=== PATIENT | female | born 1960 | race Caucasian/White ===

== ENCOUNTER 2023-06-02 13:48 | Outpatient (REF) | payer OTHER, SELFPAY ==
[2023-06-02 21:54] LABS: Absolute Basophil Count 0.06 10^3/uL (0.0-0.2); Absolute Eosinophil Count 0.44 10^3/uL (0.0-0.7); Absolute Lymphocyte Count 1.88 10^3/uL (1.2-3.4); Absolute Monocyte Count 0.59 10^3/uL (0.1-0.8); Absolute Neutrophil Count 8.78 10^3/uL (1.2-6.7); Basophils % 0.5; Eosinophils % 3.7; HCT 37.8 % (36.0-46.0); HGB 12.5 g/dL (11.2-15.7); Immature Grans % 0.8; Lymphocytes % 15.9; MCH 30.3 pg (27.0-33.0); MCHC 33.1 % (32.0-36.0); MCV 92 fL (80-95); MPV 10.9 fL (8.0-11.0); Neutrophils % 74.1; Platelet Count 367 10^3/uL (130-400); RBC 4.12 10^6/uL (3.93-5.22); RDW 12.4 % (11.7-14.6); RDW-SD 42.2 fL; WBC 11.85 10^3/uL (4.4-10.8)
[2023-06-02 22:04] LABS: ALT 26 U/L (14-59); AST 35 U/L (15-37); Albumin 3.1 g/dL (3.4-5.0); Alkaline Phosphatase 103 U/L (46-116); Anion Gap 8.9 mmol/L (3-11); BUN 6 mg/dL (7-18); Bilirubin, Total 0.5 mg/dL (0.2-1.0); CO2 26.1 mmol/L (21.0-32.0); CREATININE 0.9 mg/dL (0.55-1.02); Calcium 8.8 mg/dL (8.5-10.1); Chloride 97 mmol/L (98-107); Estimated GFR 71.83 (mL/min/1.73m2); Glucose 103 mg/dL (74-106); Potassium 4.5 mmol/L (3.5-5.1); Sodium 132 mmol/L (136-145)
[2023-06-04 12:28] LABS: Lyme Ab w Rflx to Lyme Confirm Positive (Negative)
[2023-06-04 13:58] LABS: Lyme IgG Ab Positive (Negative); Lyme IgM Ab Positive (Negative)
[2023-06-06 09:44] LABS: Anaplasma phagocytophilum Negative (Negative); B. miyamotoi PCR Negative (Negative); Babesia divergens/MO-1 Negative (Negative); Babesia duncani Negative (Negative); Babesia microti Negative (Negative); Ehrlichia chaffeensis Negative (Negative); Ehrlichia ewingii/canis Negative (Negative); Ehrlichia muris eauclairensis Negative (Negative)
== END 2023-06-02 13:49 | disposition home or self-care (01) ==
LOC: NCHCN 13:48
PROVIDERS: Visit Provider Family Medicine
DX: R53.83 Other fatigue (principal); R50.9 Fever, unspecified; R21 Rash and other nonspecific skin eruption
CPT/HCPCS: 80053; 86617; 87798; 85025; 86618

== ENCOUNTER 2024-10-13 11:36 | Outpatient (REF) | payer OTHER, SELFPAY ==
--- NOTE | 2024-10-13 11:00 | PAPFT_PTH ---
PATIENT: Jessica Connelly LOC: [facility] U#:[id number] AGE/SX: 64/F ROOM: RE10/13/[address]: Ramsey Henriquez : 1960 BED: DIS: 10/13/2024 SPEC #: [id number] RECD: 10/14/24 13:30 STATUS: KARRI REQ #: [id number] JON: 10/13/24 11:[address]: Ramsey Henriquez DEPT: [facility] Cytology RECD BY: Rosenda Hart ENTERED: 10/14/24 13:30 SP TYPE: PAPFT OTHR DR: Unknown,Unknown Tissues: 1 - CX/ENDOCX FOR PAP SMEARS Procedures: PAP THIN PREP/[facility] Screening HPV DNA PROBE Comments: [id number] (HPV 16 & 18/45)
--- OUTSIDE RECORDS SUMMARY | 2024-10-13 11:38 | XMS_ITS | Encounter Summary ---
Author Organization [facility] Address [address] [place] [address] Care Team Providers Care Professional Development Instructor Name Role Phone Venancio Henriquez MD Primary Care Provide r Reason for Referral * Radiology Services (Routine/Next Available) - Authorized Specialty Diagnoses / Procedures Referred By Abby t Referred To Contact Radiology Diagnoses Disorder of bone, unspecified Procedures MR PELVIS WO CONTRAST Venancio Henriquez MD 4 [facility] [address] [place] [address] Phone: tel: fax: [facility] Referral ID Status Reason Start Date Expiration Date V isits Requested Visits Authorized [id number] Authorized 01/29/2024 03/26/2024 1 1 Reason for Visit * Radiology Services (Routine/Next Available) - Authorized Specialty Diagnoses / Procedures Referred By Abby t Referred To Contact Radiology Diagnoses Disorder of bone, unspecified Procedures MR PELVIS WO CONTRAST Venancio Henriquez MD 4 [facility] [address] [place] [address] Phone: tel: fax: [facility] Referral ID Status Reason Start Date Expiration Date V isits Requested Visits Authorized [id number] Authorized 01/29/2024 03/26/2024 1 1 Encounter Details Date Type Department Care Team (Latest Contact Info) Description 02/11/2024 9:17 EDT - 02/11/2024 23:59 EDT Hospital Encounter [facility] [address] [place] [address] Disorder of bone, unspecified Discharge Disposition: Home or Self Care Social History Tobacco Use Types Packs/Day Years Used Date Smoking Tobacco: Former Cigarettes Smokeless Tobacco: Never Comments:smoked when she was 12 years old and stopped at the age of 14 Alcohol Use Standard Drinks/Week Comments Yes 2 (1 standard drink = 0.6 oz pur e alcohol) Interpersonal Safety Answer Date Record ed Physically Hurt Never 06/03/2020 Verbally Threaten Not on file 06/03/2020 Comments No Sex and Gender Information Value Date Recorded Sex Assigned at Not on file Legal Sex Female 18:28 EST Gender Identity Female 01/14/2024 16:04 EDT Sexual Orientation Not on file documented as of this encounter Functional Status * Because of a physical, mental, or emotional condition, does this person have difficulty doing errands alone such as visiting a doctor's office or shopping? Answer Date of Assessment Author No 12/16/2022 8:07 EST documented as of this encounter Mental Status * Because of a physical, mental, or emotional condition, does this person have serious difficulty concentrating, remembering, or making decisions? Answer Entry Date Author No 12/16/2022 8:07 EST documented in this encounter Medications at Time of Discharge EPINEPHrine (EPIPEN) 0.3 mg/0.3 mL injection Inject 0.3 mL into the muscle once as needed for 1 dose. 2 Syringe 6 06/18/2012 fluocinonide (LIDEX) 0.05 % ointment Apply topically 2 times daily. Do not apply to face, armpit or groin. 30 g 3 01/30/2023 MULTIVITAMINS (MULTIVITAMIN ORAL) Take by mouth daily. Vit, A,D,B,C,K OMEGA-3 FATTY ACIDS (OMEGA-3 ORAL) Take by mouth daily. SELENIUM ORAL Take by mouth daily. UNABLE TO FIND daily. Med Name: Pantethine, Serrapeptase VITAMIN B COMPLEX (VIT BALANCED B-100 ORAL) Take by mouth. 4 times weekly documented as of this encounter Discharge Disposition Disposition Code Departure Means Destination Home or Self Care documented in this encounter Plan of Treatment Not on file documented as of this encounter Procedures Procedure Name Priority Date/Time Associated Diagnosis Comments MR PELVIS WO CONTRAST Routine 02/11/2024 10:29 EDT Disorder of bone, unspecified documented in this encounter Results * MR PELVIS WO CONTRAST (02/11/2024 10:29 EDT) Anatomical Region Laterality Modality Body, Pelvis Magnetic Resonan ce 02/14/2024 19:5 3 EDT Impressions 02/14/2024 19:53 EDT FINDINGS/IMPRESSION: * ??Correlating well with the comparison studies is an intramedullary lesion in the superomedial aspect of the left iliac crest with a narrow zone of transition which corresponds to the thin rim of peripheral sclerosis seen on the previous radiographs. No perilesional bone marrow edema seen. No pathologic fracture is identified either. The lesion follows the signal intensity of fluid on all sequences suggesting that this may correspond to a cystic lesion, however a solid lesion with myxomatous contents might have a similar appearance, the lack of intravenous contrast limits further characterization. On the sagittal images there appears to be slight transcortical extension without associated adjacent edema. Based on its location, the lesion is amenable for percutaneous image guided biopsy which will provide a more definitive diagnosis if warranted. * ??No additional discrete osseous lesions are seen elsewhere in the remaining of the visualized bones. No bone marrow signal abnormality seen in either. * ??Mild degenerative changes seen in the hips which appear otherwise congruent and symmetric. The SI joints appear grossly congruent and symmetric as well. The pubic symphysis also appears congruent. * ??Multilevel degenerative changes seen in the included lower lumbar spine. * ??No discrete abnormality seen in the intrapelvic organs although this study is not tailored for that purpose. No free fluid seen in the deep pelvis. * ??No evidence of trochanteric, subgluteal, ischiogluteal, or iliopsoas bursitis on either side. * ??Overall muscle quality is age-appropriate. [id number] Narrative 02/14/2024 19:53 EDT STUDY: MR PELVIS WO CONTRAST ??02/11/2024 9:25 AM SIGNS AND SYMPTOMS/COMMENTS: 3.7 x 1.8 cm left iliac lesion seen incidentally on MR L spine at [facility]. ??Recommending this study to further characterize, changed to w/o contrast.;M89.9:Disorder of bone, unspecified TECHNIQUE: Multiplanar multisequence MR images of the pelvis centered around the aforementioned osseous lesion were obtained. No contrast was administered. COMPARISON: Outside MRI of the lumbar spine dated December 31, 2023. Radiographs of the lumbar spine dated December 05, 2023. Procedure Note Harpreet Herrera MD - 02/14/2024 STUDY: MR PELVIS WO CONTRAST 02/11/2024 9:25 AM SIGNS AND SYMPTOMS/COMMENTS: 3.7 x 1.8 cm left iliac lesion seenincidentally on MR L spine at [facility]. Recommending this study to furthercharacterize, changed to w/o contrast.;M89.9:Disorder of bone, unspecified TECHNIQUE: Multiplanar multisequence MR images of the pelvis centeredaround the aforementioned osseous lesion were obtained. No contrast wasadministered. COMPARISON: Outside MRI of the lumbar spine dated December 31, 2023.Radiographs of the lumbar spine dated December 05, 2023. IMPRESSION FINDINGS/IMPRESSION: * Correlating well with the comparison studies is an intramedullarylesion in the superomedial aspect of the left iliac crest with a narrowzone of transition which corresponds to the thin rim of peripheralsclerosis seen on the previous radiographs. No perilesional bone marrowedema seen. No pathologic fracture is identified either. The lesionfollows the signal intensity of fluid on all sequences suggesting thatthis may correspond to a cystic lesion, however a solid lesion withmyxomatous contents might have a similar appearance, the lack ofintravenous contrast limits further characterization. On the sagittalimages there appears to be slight transcortical extension withoutassociated adjacent edema. Based on its location, the lesion is amenablefor percutaneous image guided biopsy which will provide a more definitivediagnosis if warranted. * No additional discrete osseous lesions are seen elsewhere in theremaining of the visualized bones. No bone marrow signal abnormality seenin either. * Mild degenerative changes seen in the hips which appear otherwisecongruent and symmetric. The SI joints appear grossly congruent andsymmetric as well. The pubic symphysis also appears congruent. * Multilevel degenerative changes seen in the included lower lumbarspine. * No discrete abnormality seen in the intrapelvic organs although thisstudy is not tailored for that purpose. No free fluid seen in the deeppelvis. * No evidence of trochanteric, subgluteal, ischiogluteal, or iliopsoasbursitis on either side. * Overall muscle quality is age-appropriate. [id number] Venancio Henriquez MD IMG MRI ORDERABLES Fi nal Result documented in this encounter Visit Diagnoses Diagnosis Disorder of bone, unspecified documented in this encounter Care Teams Professional Development Instructor Relationship Specialty Start Date End Date Venancio Henriquez MD [address] [address] PCP - General 01/14/24 documented as of this encounter
--- OUTSIDE RECORDS SUMMARY | 2024-10-13 11:38 | XMS_ITS | Clinical Summary ---
Author Organization [facility] Address [address] [place] [address] Care Team Providers Care Bung Remover Name Role Phone Venancio Henriquez MD Primary Care Provide r Allergies Active Allergy Reactions Criticality Noted Date Comments Codeine Nausea Only Other - See Comments 02/19/2010 Antibiotics trigger systemic logan per patient. Avoids. Penicillins Hives Medications VITAMIN B COMPLEX (VIT BALANCED B-100 ORAL) Take by mouth. 4 times weekly Active OMEGA-3 FATTY ACIDS (OMEGA-3 ORAL) Take by mouth daily. Active MULTIVITAMINS (MULTIVITAMIN ORAL) Take by mouth daily. Vit, A,D,B,C,K Active SELENIUM ORAL Take by mouth daily. Active UNABLE TO FIND daily. Med Name: Pantethine, Serrapeptase Active EPINEPHrine (EPIPEN) 0.3 mg/0.3 mL injection Inject 0.3 mL into the muscle once as needed for 1 dose. 2 Syringe 6 2 Active fluocinonide (LIDEX) 0.05 % ointment Apply topically 2 times daily. Do not apply to face, armpit or groin. 30 g 3 3 Active Active Problems Problem Noted Date Diagnosed Date Carpal tunnel syndrome 08/23/2014 Overview (09/07/2014): 08/15 by EMG moderate right; mild left Benign neoplasm of skin 06/25/2012 Overview (08/19/2015): Pigmented nevus, right labia majora IMO Update Auto Replacement Actinic keratosis 12/09/2010 Migraine 02/19/2010 Systolic murmur 02/19/2010 Overview (02/19/2010): Normal echo 2001 Chronic fatigue syndrome 02/19/2010 Immunizations Name Administration Dates Next Due Td 11/02/2003 Surgical History Surgery Date Site/Laterality Comments APPENDECTOMY 11/02/1970 SKIN BIOPSY MOHS SURGERY 12/16/2022 Left frontal scalp, MIS with MART -1 immunostains Medical History Medical History Date Comments Candidiasis per patient, can dida sensitivity Pneumonia Appendicitis Arthritis Heart murmur Environmental allergies Varicella Family History Medical History Relation Comments *Other(comment) Brother kidney stones *Other(comment) Father Joe Tinoco, h/o brain aneurysm surgery Arthritis Father has spinal steno sis, osteoporosis, had Keegan Coronary Artery Disease Father CABG 70s Heart Disease Father CAD, developed i n his 70's High Blood Pressure Father Arthritis Mother Thyroid Disease Mother hypothyroid Cancer Paternal Grandfather of lym phoma( Hodgkins) Relation Status Comments Brother Alive Father Alive Mother Alive Paternal Grandfather Sister Alive Social History Tobacco Use Types Packs/Day Years Used Date Smoking Tobacco: Former Cigarettes Smokeless Tobacco: Never Tobacco Cessation:Counseling Given: Not Answered Comments:smoked when she was 12 years old [...] 16:04 EDT Sexual Orientation Not on file Obstetrics History Last Filed Vital Signs Vital Sign Reading Time Taken Comments Blood Pressure 141/70 12/16/2022 0807 EST Pulse 76 12/16/2022 0807 EST Temperature 35.8 ??C (96.4 ??F) 08/01/2014 1039 EDT Respiratory Rate 16 08/01/2014 1039 EDT Oxygen Saturation - - Inhaled Oxygen Concentration - - Weight 67.1 kg (148 lb) 07/05/2013 0921 EDT Height 167.6 cm (5' 6) 07/05/2013 0921 EDT Body Mass Index 23.89 07/05/2013 0921 EDT Plan of Treatment Health Maintenance Due Date Last Done Comments Hepatitis C Screen 1960 COVID-19 Vaccine (2023-25 season) 2024 Fall Risk Screening 2024 RSV Immunization ( o r 60+ Years) (1 - 1-dose 75+ series) 2034 Insurance [employer] Care Teams Bung Remover Relationship Specialty Start Date End Date Venancio Henriquez MD 4 [facility] [address] [place] [address] PCP - General 01/14/24
--- OUTSIDE RECORDS SUMMARY | 2024-10-13 11:38 | XMS_ITS | Encounter Summary ---
Author Organization [facility] Address [address] [place] [address] Care Team Providers Care Medical Billing And Coding Specialist Name Role Phone Kirby Alba CHRISTIANO Primary Care Provider [phone] None, Provider Primary Care Provider Venancio Ward MD Primary Care Provide r Encounter Details Date Type Department Care Team (Late st Contact Info) Description 06/03/2023 Lab Requisition [facility] Pathology & Laboratory Medicine - [facility] [address] [place], [place] [id number] Outr Resulting Lab, Provider Social History Tobacco Use Types Packs/Day Years [...] 12/16/2022 8:07 EST documented in this encounter Plan of Treatment Not on file documented as of this encounter Procedures Procedure Name Priority Date/Time Associated Diagnosis Comments LYME ANTIBODY CONFIRMATION Today 06/02/2023 12:55 EDT LYME AB Routine 06/02/2023 12:55 EDT documented in this encounter Results * (ABNORMAL) LYME ANTIBODY CONFIRMATION (06/02/2023 12:55 EDT) Lyme IgG Antibody Positive(A ) Negative 06/04/2023 13:53 EDT [facility] Comment:Specific anti-Borrel ia burgdorfei IgG antibodies are detected. Lyme IgM Antibody Positive(A ) Negative 06/04/2023 13:53 EDT [facility] Comment:Specific anti-Borrel ia burgdorfei IgM antibodies are detected. Lyme Antibody Confirmation Interpretation See Comment 06/04/2023 13:53 EDT [facility] Comment:Indicative of active or previous B. burgdorferi infection. Lyme IgM is of diagnostic utility only during the first four weeks after the onset of disease. Blood VENOUS BLOOD / Unknown 06/02/2023 12:55 EDT 06/03/2023 17:20 EDT us Provider Outr Resulting Lab IMMUNOLOGY AND SEROL OGY ORDERABLES Final Result [facility] [address] [place] [address] * (ABNORMAL) LYME AB (06/02/2023 12:55 EDT) Lyme Ab Positive( A) Negative 06/04/2023 12:23 EDT [facility] Comment: Lyme confirmation added by reflex. The [employer] Lyme Liaison Lyme Total Antibody Plus assay contains antigens from Borrelia burgdorferi, Borrelia garinii, and Borelia afzelli. Results from the second-step confirmation tests that detect only B. burgdorferi specific antigens should be interpreted with caution. Blood VENOUS BLOOD / Unknown 06/02/2023 12:55 EDT 06/03/2023 17:20 EDT us Provider Outr Resulting Lab IMMUNOLOGY AND SEROL OGY ORDERABLES Final Result [facility] [address] [place] [address] documented in this encounter Visit Diagnoses Not on filedocumented in this encounter Care Teams Medical Billing And Coding Specialist Relationship Specialty Start Date End Date Kirby Alba ND [address] [place], [place] [address] PCP - General 07/21/17 12/04/23 None, Provider PCP - General 12/05/23 01/13/24 Venancio Henriquez MD [address] [place] [address] [address] [place], [place] [address] PCP - General 01/14/24 documented as of this encounter
--- OUTSIDE RECORDS SUMMARY | 2024-10-13 11:38 | XMS_ITS | Encounter Summary ---
Author Organization [facility] Address [address] [place] [address] Care Team Providers Care Drywall Mechanic Name Role Phone Kirby Alba CHRISTIANO Primary Care Provider [phone] None, Provider Primary Care Provider Venancio Ward MD Primary Care Provide r Encounter Details Date Type Department Care Team (Late st Contact Info) Description 11/20/2022 Lab Requisition [facility] Pathology & Laboratory Medicine - [facility] [address] [place] [address] Sheryl Gutiérrez [address] [place] [address] [place] [address] Neoplasm of uncertain behavior of skin Social History Tobacco Use Types Packs/Day Years [...] on file documented as of this encounter Plan of Treatment Not on file documented as of this encounter Procedures Procedure Name Priority Date/Time Associated Diagnosis Comments SURGICAL PATHOLOGY Today 11/19/2022 11 :16 EST Neoplasm of uncertain behavior of skin documented in this encounter Results * SURGICAL PATHOLOGY (11/19/2022 11:16 EST) Note to Patient The following pathology results have been interpreted by your pathologist and may be available to you before your health provider has had the opportunity to review them. Please allow time for your provider to receive these results and explore management options, if applicable. 11/24/2022 13:41 [facility] Final Diagnosis A. SKIN OF SCALP, LEFT MEDIAL FRONTAL, SHAVE BIOPSY: - Melanoma in situ. See comment and synoptic. 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 11/24/2022 13:41 [facility] Diagnosis Comment The biopsy consists of melanoma in situ with extensive involvement of follicular units. There is patchy dense inflammation in areas of complex hyperplasia but no definitive invasive component is identified. Results called to [facility] on 11/24/2022. 11/24/2022 13:41 [facility] Attestation By the signature below, the attending physician certifies that they have 1) personally conducted a gross and/or microscopic examination of the described specimen(s), and/or personally interpreted the results of laboratory testing of the described specimen(s), and 2) personally rendered or confirmed the above diagnosis. 11/24/2022 13:41 [facility] at 1341 Synoptic MELANOMA OF THE SKIN: Biopsy MELANOMA OF THE SKIN: BIOPSY - A 8th Edition - Protocol posted: 01/22/2022 SPECIMEN ?? Procedure: ?Biopsy, shave ?? Specimen Laterality: ?Left TUMOR ?? Tumor Site: ?Skin of scalp and neck: Medial frontal scalp ?? 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 Ulceration: ?Not identified ?? Tumor Regression: ?Not identified ?? MARGINS: ? Margin Status for Melanoma in Situ: ?Melanoma in situ present at margin ? Margin(s) Involved by Melanoma in Situ: ?Peripheral ? Margin(s) Involved by Melanoma in Situ: ?Deep ?? PATHOLOGIC STAGE CLASSIFICATION (pTNM, AJCC 8th Edition): ? pT Category: ?pTis 11/24/2022 13:41 [facility] Microscopic Description Sections consist of a shave biopsy of skin to the mid reticular dermis. The epidermis is hyperplastic with irregular rete ridge pattern. There is a melanocytic proliferation spans the biopsy specimen. Melanocytes are arranged in nests that are highly variable in size and shape. In areas, individual melanocytes predominate are crowded along the dermal-epidermal junction. There are focal areas of developed pagetoid migration. The proliferation extends into the epithelium of follicular units that are dilated and distorted. Melanocytes are enlarged and have a moderate amount of ill-defined cytoplasm containing coarse melanin pigment. The nuclei are vesicular and pleomorphic. The dermis has areas of fibroplasia and dense lymphomononuclear inflammation with melanophages. There is solar elastosis. 11/24/2022 13:41 [facility] Clinical History 1 cm irregular brown macule; DDx: Seborrheic keratosis versus AN, MM versus other; clinical diagnosis code: D48.5 11/24/2022 13:41 [facility] Gross Description A. Received in formalin labelled with proper patient identification (initials C, S) and left medial frontal scalp is a shave biopsy of an irregular pearly brown-purple hair-bearing macule (0.7 x 0.6 x 0.1 cm). The margin is inked blue, the specimen is bisected and entirely submitted in A1. Wendi Gambino 11/20/2022 9:08 11/24/2022 13:41 [facility] Performing Lab [facility] 11/24/2022 13:41 [facility] Scanned Images 11/24/2022 13:41 [facility] Tissue TISSUE SPECIMEN FROM SKIN / Unknown 11/19/2022 11:16 EST 11/20/2022 7:22 EST Sheryl Pedersonowan PATHOLOGY ORDERABLES Final Resul t [facility] [address] [place] [address] documented in this encounter Visit Diagnoses Diagnosis Neoplasm of uncertain behavior of skin documented in this encounter Care Teams Drywall Mechanic Relationship Specialty Start Date End Date Kirby Alba [place] [address] [place], [place] [id number] PCP - General 07/21/17 12/04/23 None, Provider PCP - General 12/05/23 01/13/24 Venancio Henriquez MD [address] [facility] [address] [place], [place] [id number] PCP - General 01/14/24 documented as of this encounter
--- OUTSIDE RECORDS SUMMARY | 2024-10-13 11:38 | XMS_ITS | Encounter Summary ---
Author Organization [facility] Address [address] [place] [address] Care Team Providers Care Global Security Architect Name Role Phone Parth Kirby ALVARADO Primary Care Provider None, Provider Primary Care Provider Venancio Ward MD Primary Care Provide r Encounter Details Date Type Department Care Team (Late st Contact Info) Description 07/25/2020 Lab Requisition [facility] Pathology & Laboratory Medicine - [facility] [address] [place] [address] Soheila Stephen, CHRISTIANO [address] [place] [address] Encounter for screening for lipoid disorders; Encounter for screening for diabetes mellitus; Sleep disorder, unspecified Social History Tobacco Use Types Packs/Day Years [...] Procedure Name Priority Date/Time Associated Diagnosis Comments COMPLETE BLOOD COUNT AND DIFFERENTIAL Routine 07/25/2020 8:48 EDT Sleep disorder, unspecified T3 FREE Routine 07/25/2020 8:48 EDT Sleep disorder, unspecified TSH Routine 07/25/2020 8:48 EDT Sleep disorder, unspecified T4 Routine 07/25/2020 8:48 EDT Sleep disorder, unspecified HEMOGLOBIN A1C Routine 07/25/2020 8:48 EDT Encounter for screening for diabetes mellitus LIPID PROFILE (INCLUDES CHOLESTEROL, TRIGLYCERIDES, HDL, LDL) Routine 07/25/2020 8:48 EDT Encounter for screening for lipoid disorders COMPREHENSIVE METABOLIC PANEL (CMP) Routine 07/25/2020 8:48 EDT Sleep disorder, unspecified documented in this encounter Results * T3 FREE (07/25/2020 8:48 EDT) T3, Free 3.2 2.8 - 5.3 pg/mL 07/25/2020 18:08 EDT [facility] Blood VENOUS BLOOD / Unknown 07/25/2020 8:48 EDT 07/25/2020 17:35 EDT us Soheila Stephen ND CHEMISTRY & BLOOD GAS ORDERABLE S Final Result [facility] [address] [place] [address] * (ABNORMAL) COMPLETE BLOOD COUNT AND DIFFERENTIAL (07/25/2020 8:48 EDT) WBC 7.45 4.00 - 12.40 K/cmm 07/25/2020 17:45 EDT [facility] RBC 4.43 3.86 - 5.04 M/cmm 07/25/2020 17:45 EDT [facility] Hemoglobin 14.7 11.6 - 15.2 gm/dL 07/25/2020 17:45 [facility] HCT 40.8 34.9 - 44.4 % 07/25/2020 17:45 [facility] MCV 92 81 - 98 fl 07/25/2020 17:45 [facility] MCH 33.2 26.7 - 33.3 pg 07/25/2020 17:45 [facility] MCHC 36.0(H) 32.1 - 35.9 gm/dL 07/25/2020 17:45 [facility] RDW-CV 13.4 <14.7 % 07/25/2020 17:45 [facility] RDW-SD 44.9 <50.4 fl 07/25/2020 17:45 [facility] PLT 292 141 - 377 K/cmm 07/25/2020 17:45 [facility] MPV 10.2 9.5 - 12.7 fl 07/25/2020 17:45 [facility] % Neutrophils 51.7 % 07/25/2020 17:45 [facility] % Lymphocytes 37.2 % 07/25/2020 17:45 [facility] % Monocytes 5.9 % 07/25/2020 17:45 [facility] % Eosinophils 2.7 % 07/25/2020 17:45 [facility] % Basophils 1.7 % 07/25/2020 17:45 [facility] % Immature Grans 0.8 % 07/25/20 20 17:45 [facility] Absolute Neutrophils 3.85 2.20 - 8.85 K/cmm 07/25/2020 17:45 [facility] Absolute Lymphocytes 2.77 1.09 - 3.30 K/cmm 07/25/2020 17:45 [facility] Absolute Monocytes 0.44 0.10 - 0.80 K/cmm 07/25/2020 17:45 [facility] Absolute Eosinophils 0.20 0.03 - 0.61 K/cmm 07/25/2020 17:45 [facility] ABS Basophils 0.13(H) 0.01 - 0.11 K/cmm 07/25/2020 17:45 [facility] Absolute Immature Grans 0.06 0.00 - 0.06 K/cmm 07/25/2020 17:45 [facility] Type of Differential: Auto 07/25/2020 17:45 [facility] Blood VENOUS BLOOD / Unknown 07/25/2020 8:48 EDT 07/25/2020 17:35 EDT us Benjijamey Bud Stephen ND PACKAGES & DNA PROBE ORDERABLES Final Result Performing Organization Address City/State/[facility] Co de Phone Number [facility] [address] [place] [address] * (ABNORMAL) COMPREHENSIVE METABOLIC PANEL (CMP) (07/25/2020 8:48 EDT) Sodium 148(H) 136 - 145 mEq/L 07/25/2020 17:49 [facility] Potassium 4.5 3.5 - 5.0 mEq/L 07/25/2020 17:49 [facility] Chloride 110 96 - 110 mEq/L 07/25/2020 17:49 [facility] CO2 Total 21(L) 22 - 32 mEq/L 07/25/2020 17:49 [facility] Glucose 118(H) 70 - 100 mg/dL 07/25/2020 17:49 [facility] BUN 8(L) 10 - 26 mg/dL 07/25/2020 17:49 [facility] Creatinine 0.61 0.52 - 1.04 mg/dL 07/25/2020 17:49 [facility] eGFR 98 >60 mL/min/1.7 3m2 07/25/2020 17:49 [facility] Comment:eGFR calculated yohana ochoa CKD-EPI equation for non- Americans. Multiply eGFR by 1.16 for patients. Total Protein 7.2 6.3 - 8.2 g/dL 07/25/2020 17:49 [facility] Albumin 4.4 3.4 - 4.9 g/dL 07/25/2020 17:49 EDT [facility] Alkaline Phosphatase 46 38 - 126 U/L 07/25/2020 17:49 [facility] AST 25 15 - 46 U/L 07/25/2020 17:49 [facility] ALT 20 <35 U/L 07/25/2020 17:49 [facility] Bilirubin, Total <0.5 <1.4 mg/dL 07/25/20 20 17:49 [facility] Calcium 9.0 8.5 - 10.5 mg/dL 07/25/2020 17:49 [facility] Calculated Calcium 8.7 8.5 - 10.5 mg/dL 07/25/2020 17:49 [facility] Blood VENOUS BLOOD / Unknown 07/25/2020 8:48 EDT 07/25/2020 17:35 EDT Soheila Stephen ND CHEMISTRY & BLOOD GAS ORDERABLE S Final Result Performing Organization Address [facility] de Phone Number [facility] [address] [place] [address] * TSH (07/25/2020 8:48 EDT) Pathologist [facility] TSH 1.06 0.47 - 4.68 uIU/mL 07/25/2020 18:21 EDT [facility] Blood VENOUS BLOOD / Unknown 07/25/2020 8:48 EDT 07/25/2020 17:35 EDT Narrative [facility] - 07/25/2020 18:21 EDT The results of this assay can be falsely lowered due to the consumption of Biotin. Soheila Stephen ND CHEMISTRY & BLOOD GAS ORDERABLE S Final Result Performing Organization Address [facility]/ZIP Co de Phone Number [facility] [address] [place] [address] * (ABNORMAL) T4 (07/25/2020 8:48 EDT) T4 12.3(H) 5.5 - 11.0 ug/dL 07/25/2020 18:08 EDT [facility] Blood VENOUS BLOOD / Unknown 07/25/2020 8:48 EDT 07/25/2020 17:35 EDT Soheila Stephen ND CHEMISTRY & BLOOD GAS ORDERABLE S Final Result Performing Organization Address [facility] de Phone Number [facility] [address] [place] [address] * HEMOGLOBIN A1C (07/25/2020 8:48 EDT) Hemoglobin A1c 4.8 <5.7 % 07/26/2020 10:56 EDT [facility] Comment: Glycemic Status References: Normal: ??<5.7% Pre-Diabetes: ??5.7% - 6.4% Diagnostic of Diabetes: ??> or = 6.5% (if confirmed) Goals for glycemic control in diabetics (ADA 2017): <7.0% target for non adults with diabetes. <7.5% target for children and adolescents with Type I Diabetes. More or less stringent targets may be appropriate for individual patients. Est Avg Glucose 91 mg/dL 0 10:56 EDT [facility] Comment:The eAG represents t he A1c result expressed as average glucose in mg/dL. Blood VENOUS BLOOD / Unknown 07/25/2020 8:48 EDT 07/25/2020 17:35 EDT Soheila Stephen ND CHEMISTRY & BLOOD GAS ORDERABLE S Final Result Performing Organization Address [facility] Co de Phone Number [facility] [address] [place] [address] * LIPID PROFILE (INCLUDES CHOLESTEROL, TRIGLYCERIDES, HDL, LDL) (07/25/2020 8:48 EDT) [facility] Signature Cholesterol 195 See Note mg/dL 07/25/2020 17:49 [facility] Comment: Acceptable: ?<200 mg/dL Borderline High: 200-239 mg/dL High: ?> or = 240 mg/dL HDL 67 See Note mg/dL 07/25/2020 17:49 [facility] Comment: Low: ? <40 mg/dL Normal: ??40-60 mg/dL High: ?>60 mg/dL LDL, Calculated 86 See Note mg/dL 07/25/2020 17:49 [facility] Comment: Optimal: ? <100 mg/dL Near Optimal: ?100-129 mg/dL Borderline High: 130-159 mg/dL High: ?160-189 mg/dL Very High: ? > or = 190 mg/dL Triglyceride 208 See Note mg/dL 07/25/2020 17:49 [facility] Comment: Normal: ? <150 mg/dL Borderline High: ??150 - 199 mg/dL High: ? 200 - 499 mg/dL Very High: ?> or = 500 mg/dL Chol/HDL Ratio 2.9 See Note 07/25/2020 17:49 [facility] Comment:No reference range h as been established for CHOL/HDL ratio. Non HDL Cholesterol 128 See Note mg/dL 07/25/2020 17:49 [facility] Comment: Desirable: ?<130 mg/dL Borderline High: ??130-159 mg/dL High: ? 160-189 mg/dL Very High: ?> or = 190 mg/dL Blood VENOUS BLOOD / Unknown 07/25/2020 8:48 EDT 07/25/2020 17:35 EDT Soheila Farrell Zafar ALVARADO CHEMISTRY & BLOOD GAS ORDERABLE S Final Result [facility] [address] [place] [address] documented in this encounter Visit Diagnoses Diagnosis Encounter for screening for lipoid disorders Screening for lipoid disorders Encounter for screening for diabetes mellitus Screening for diabetes mellitus Sleep disorder, unspecified documented in this encounter Care Teams Global Security Architect Relationship Specialty Start Date End Date Kirby Alba ND [address] [place] [address] PCP - General 07/21/17 12/04/23 None, Provider PCP - General 12/05/23 01/13/24 Venancio Henriquez MD [address] [place] [address] [address] [place], [place] [address] PCP - General 01/14/24 documented as of this encounter
--- OUTSIDE RECORDS SUMMARY | 2024-10-13 11:38 | XMS_ITS | Encounter Summary ---
Author Organization [facility] Address [address] [place] [address] Care Team Providers Care Foreign Diplomat Name Role Phone ParthKirby rojas CHRISTIANO Primary Care Provider None, Provider Primary Care Provider Venancio Ward MD Primary Care Provide r Encounter Details Date Type Department Care Team (Late st Contact Info) Description 07/27/[address] [facility] Pathology & Laboratory Medicine - [facility] [address] [place] [address] Soheila Stephen, CHRISTIANO [address] [place] [address] Encounter for gynecological examination (general) (routine) without abnormal findings Social History Tobacco Use Types Packs/Day Years [...] as of this encounter Plan of Treatment Scheduled Orders Name Type Priority Associated Diagnoses Orde r Schedule PAP TEST Pathology Today Encounter for gynecological examination (general) (routine) without abnormal findings Ordered: 07/27/2020 documented as of this encounter Visit Diagnoses Diagnosis Encounter for gynecological examination (general) (routine) without abnormal findings documented in this encounter Care Teams Foreign Diplomat Relationship Specialty Start Date End Date Kirby Alba ND [address] [place], [place] [id number] PCP - General 07/21/17 12/04/23 None, Provider PCP - General 12/05/23 01/13/24 Venancio Henriquez MD [address] [place] [address] [address] [place], [place] [address] PCP - General 01/14/24 documented as of this encounter
--- OUTSIDE RECORDS SUMMARY | 2024-10-13 11:38 | XMS_ITS | Encounter Summary ---
Author Organization [facility] Address [address] [place] [address] Care Team Providers Care Winding Operator Name Role Phone None, Provider Primary Care Provider Unavailabl e Encounter Details Date Type Department Care Team (Late st Contact Info) Description 01/11/2024 Orders Only [facility] Radiology - [facility] [address] [place] [address] Jhon Abdullahi, DO [address] [facility], [address] [place] [phone] Social History Tobacco Use Types Packs/Day Years [...] on file documented as of this encounter Visit Diagnoses Not on filedocumented in this encounter Care Teams Winding Operator Relationship Specialty Start Date End Date None, Provider PCP - General 12/05/23 01/13/24 documented as of this encounter
--- OUTSIDE RECORDS SUMMARY | 2024-10-13 11:38 | XMS_ITS | Referral Summary ---
Author Organization [facility] Address [address] [place] [address] Care Team Providers Care Hotel Concierge Name Role Phone Venancio Henriquez MD Primary [...] Name Administration Dates Next Due Td 11/02/2003 Social History Tobacco Use Types Packs/Day Years [...] 16:04 EDT Sexual Orientation Not on file Last Filed Vital Signs Vital Sign Reading [...] Body Mass Index 23.89 07/05/2013 0921 EDT Functional Status * Because of a physical, mental, or emotional condition, does this person have difficulty doing errands alone such as visiting a doctor's office or shopping? Answer Date of Assessment Author No 12/16/2022 8:07 EST Mental Status * Because of a physical, mental, or emotional condition, does this person have serious difficulty concentrating, remembering, or making decisions? Answer Entry Date Author No 12/16/2022 8:07 EST Plan of Treatment Not on file Insurance [employer] Care Teams Hotel Concierge Relationship Specialty Start Date End Date Venancio Henriquez MD [address] [address] PCP - General 01/14/24
--- OUTSIDE RECORDS SUMMARY | 2024-10-13 11:38 | XMS_ITS | Encounter Summary ---
Author Organization [facility] Address [address] [place] [address] Care Team Providers Care Mercury Recoverer Name Role Phone Kirby Alba CHRISTIANO Primary Care Provider [phone] None, Provider Primary Care Provider Venancio Ward MD Primary Care Provide r Reason for Visit * Reason Onset Date Comments Appointment Related 08/16/2018 Encounter Details Date Type Department Care Team (Late st Contact Info) Description 08/16/2018 Telephone [facility] Dermatology 3rd Floor [facility] [address] [place], [place] [id number] Garrett Guzman MD [address] [facility], [address] [place] [address] Appointment Related Social History Tobacco Use Types Packs/Day Years Used Date Smoking Tobacco: Former Cigarettes Smokeless Tobacco: Never Comments:smoked when she was 12 years old and stopped at the age of 14 Alcohol Use Standard Drinks/Week Comments Yes 2 (1 standard drink = 0.6 oz pur e alcohol) Comments No Sex and Gender Information Value Date Recorded Sex Assigned at Not on file Legal Sex Female 18:28 EST Gender Identity Female 01/14/2024 16:04 EDT Sexual Orientation Not on file documented as of this encounter Miscellaneous Notes * Telephone Encounter - Susanna Shah - 08/16/2018 1455 EDT LM for patient to reschedule their bumped appointment. Please schedule in a frozen FUR with Thomas Chin, or Keturah documented in this encounter Plan of Treatment Not on file documented as of this encounter Visit Diagnoses Not on filedocumented in this encounter Care Teams Mercury Recoverer Relationship Specialty Start Date End Date Kirby Alba ND [facility] [place], [place] [id number] PCP - General 07/21/17 12/04/23 None, Provider PCP - General 12/05/23 01/13/24 Venancio Henriquez MD [address] [place] [address] [address] [place] [address] PCP - General 01/14/24 documented as of this encounter
--- OUTSIDE RECORDS SUMMARY | 2024-10-13 11:38 | XMS_ITS | Encounter Summary ---
Author Organization [facility] Address [address] [place] [address] Care Team Providers Care Rope Coiling Machine Operator Name Role Phone Kirby Alba ND Primary Care Provider [phone] Reason for Visit * Reason Comments Follow-up H/o AK, SK, Multiple Benign Nevi Skin Exam FBSE, spot on upper lip Encounter Details Date Type Department Care Team (Late st Contact Info) Description 07/22/2017 14:00 EDT Office Visit [facility] Dermatology 3rd Floor [facility] [address] [place] [address] Deena Davila PA [address] RAM[address]Z [address] [address] History of actinic keratoses (Primary Dx); Multiple benign nevi; Sun-damaged skin; Seborrheic keratoses Social History Tobacco Use Types Packs/Day Years [...] on file documented as of this encounter Patient Instructions * Patient Instructions* Deena Spencer PA - 07/22/2017 14:00 EDT Recommendations for Sun Protection Ultraviolet (UV) radiation is a known carcinogen (cancer-causing agent) and is primarily responsible for most skin cancers, including Basal Cell Carcinoma, Squamous Cell Carcinoma, and many Melanomas. UV radiation also rapidly ages the skin, leading to wrinkles, uneven color, and poor texture. Minimizing UV exposure has been shown in multiple studies to decrease the likelihood of developing cancers and pre-cancers of the skin, as well as improve overall appearance. To minimize UV exposure: 1) Avoid exposure to sunlight during the middle of the day (10am to 4pm). Seek shade when outside during these hours. Limit outdoor activities to auto body technician and/or evening hours when the sunlight is less intense. Remember that UV is reflected from water and snow, and can pass through window glass. It is still possible to get burned during cloudy weather and in the winter months. You can check the forecast for the UV Index in your area at most weather sites online. If the UV index is 3 or higher, sun protection/avoidance is recommended. 2) Wear protective clothing. Hats with wide brims that cover the ears and neck, sunglasses (sun exposure increases your risk for cataracts), long-sleeved shirts, long pants, and closed-top shoes offer good protection. Many makers of outdoor clothing test their fabrics for UV Protection Factor (UPF), which is a guide to the level of protection a particular item of clothing should provide. In general, loose weaves (Cotton) and web marketing assistant-colored fabrics offer less protection than tighter weaves or darker/thicker fabrics. It is possible to get a sunburn through clothing, especially if it is wet. 3) Use sunscreen on exposed areas. Choose a sunscreen that has a Sun Protection Factor (SPF) of 30+or higher. Apply the sunscreen generously (so much that you can barely rub it in) to exposed areas 30 minutes before sun exposure. Reapply every 2-3 hours, especially if you are in water or sweating.If you tend to break out from sunscreen, choose a sunscreen designed for Sensitive Skin and/or one with physical blocking agents, such as Zinc Oxide and Titanium Dioxide. For vigorous activity, look for Sport sunscreens, which are resistant to sweating. 4) Avoid artificial sources of UV, such as tanning beds or sun lamps. The UV emitted by these devices is just as damaging, if not more so, than natural sunlight. There is a well-documented increase in the incidence of all common skin cancers in frequent tanning bed users. Other considerations: Vitamin D: Exposure to UV light is one of the ways your body gets Vitamin D, a necessary nutrient. Other sources are from the diet and/or dietary supplements. If you are actively avoiding the sun, itmay be advisable to discuss Vitamin D supplementation with your Primary Care Provider (PCP). In general, taking a supplement of 1,000 to 2,000 International Units (IU) of Vitamin D3 is safe and well-tolerated in individuals who get minimal sun exposure and have normal kidney function. However, moreor less Vitamin D may be recommended, depending on your individual needs, and the use of such supplements should be discussed with your PCP. For more information about sun protection and skin cancer: www.skincancer.org Recommended sunscreens: Chemical sunscreen Neutrogena Ultra Sheer Dry Touch (helioplex) Aveeno (same sunscreen as in Neutrogena) Coppertone Sport La Anam-Posay Anthelios (mexoryl -good UVA and UVB) Vichy (mexoryl - available in Jose Angel) Gel formulations good for hair bearing skin Bullfrog Alcohol based - goes on quickly and good for skin with hair Solbar Physical sunblock good for sensitive skin (titanium dioxide and zinc oxide chemical/fragrance free) Blue Lizard sensitive COTZ TiZO (comes in tinted form) Neutrogena pure and free baby or sensitive Recommended sun protection clothing websites www.sunprecautions.[employer] www.coolibar.[employer] www.Dynis.[employer] www.My Dentist.[employer] documented in this encounter Progress Notes * Jeferson Velásquez - 07/22/2017 1400 EDT Review of Systems Constitutional: Negative for fatigue, fever and unexpected weight change. HENT: Negative for mouth sores. Eyes: Negative for pain. Respiratory: Negative for cough and shortness of breath. Cardiovascular: Negative for chest pain and palpitations. Gastrointestinal: Negative for abdominal pain, blood in stool, constipation, diarrhea, nausea and vomiting. Genitourinary: Negative for dysuria, frequency and hematuria. Musculoskeletal: Positive for myalgias, arthralgias and muscle stiffness in the morning. Negative for joint swelling. Skin: Negative for rash. Neurological: Positive for numbness. Negative for headaches. Endo/Heme/Allergies: Does not bruise/bleed easily. Psychiatric/Behavioral: Negative for sleep disturbance. The patient is not nervous/anxious. Jeferson Velásquez 07/22/2017 13:54 RAMÍREZ Aponte 07/22/2017 13:57 * Deena Spencer PA - 07/22/2017 1400 EDT The attending physician was available for this visit Problem Encounter Diagnoses Name Primary? History of actinic keratoses Yes ??? Multiple benign nevi ??? Sun-damaged skin ??? Seborrheic keratoses SUBJECTIVE Chief Complaint: Chief Complaint Patient presents with ??? Follow-up H/o AK, SK, Multiple Benign Nevi ??? Skin Exam FBSE, spot on upper lip Ms. Connelly is a 57 y.o. female with a history of history of multiple sunburns and avid outdoor lifestyle who presents for follow up skin exam. Patient describes painful area following walking her lip along the vermilion border the right cupids bow she wants to be sure that there is no evidence of skin cancer or precancers Last Dermatology office visit: June 2016 The patient has not noticed any scabbing, bleeding changing growths that she is concerned about. The patient admits not wearing sunscreen as diligently as she knows she should but tries to check her self on a somewhat regular basis. She is here for a full skin exam with the above stated history. Please note the past, present, family medical and social histories as well as ROS were reviewed by me today as documented in Prism. OBJECTIVE VS: LMP 11/15/2010 Physical Exam: Complete Cutaneous Exam On physical examination, in general, Ms. Connelly is a female who is well-groomed, slender, well-nourished and appears stated age and is is in no apparent distress. She is alert and oriented to person, place and time. She has Amin type II-III skin. Complete cutaneous examination of the head, inc luding the scalp and face, neck, back, chest, including breasts and axillae, abdomen, external genitalia, groin, buttocks, intertriginous areas, and all four extremities were examined. The examination was normal with the addition of the following comments: Diffusely scattered over sun exposed surfaces the patient has numerous hypo and hyper pigmented macules as well as some stuck on papules scattered over the body. Scattered over the head, neck, torso, extremities, hands, and feet the patient has less than 50 homogenously pigmented symmetric macules and papules ranging in size from 1 mm up to 5 mm none of whichhave any worrisome or atypical features No gritty macules on the face Spider angioma right upper cutaneous lip otherwise no grittiness or worrisome lesions on the upper cutaneous lip Skin: There were no lesions suspicious for malignancy. ASSESSMENT AND PLAN Jessica was seen today for skin exam. Diagnoses and all orders for this visit: Actinic keratoses - None today Multiple benign nevi Sun-damaged skin Seborrheic keratoses Patient education and reassurance. The importance of sunscreen use, the ABCDE's of melanoma discussed as well as the importance of the ugly duckling rule and self skin exams monthly of which the patient showed a good understanding. The patient will follow up in 1 year(s) for a skin exam or in the interim should problems arise. MAMTA Nolasco 07/22/2017 14:07 This note has been prepared with voice recognition software. Please excuse artificial foliage arranger errors. documented in this encounter Plan of Treatment Not on file documented as of this encounter Visit Diagnoses Diagnosis History of actinic keratoses- Primary Personal history of diseases of skin and subcutaneous tissue Multiple benign nevi Benign neoplasm of skin, site unspecified Sun-damaged skin Other dermatitis due to solar radiation Seborrheic keratoses documented in this encounter Care Teams Rope Coiling Machine Operator Relationship Specialty Start Date End Date Kirby Alba ND [address] [place] [address] PCP - General 07/21/17 12/04/23 documented as of this encounter
--- OUTSIDE RECORDS SUMMARY | 2024-10-13 11:38 | XMS_ITS | Encounter Summary ---
Author Organization [facility] Address [address] [place] [address] Care Team Providers Care Vascular Ultrasound Technician Name Role Phone Kirby Alba CHRISTIANO Primary Care Provider [phone] None, Provider Primary Care Provider Venancio Ward MD Primary Care Provide r Reason for Visit * Reason Onset Date Comments Post-procedure Pain 01/26/2023 Encounter Details Date Type Department Care Team (Late st Contact Info) Description 01/26/2023 Telephone [facility] Dermatology 3rd Floor [facility] [address] [place], [place] [id number] Gilson Morrison, PAKwakuC [address] [facility], [address] [place] [address] Post-procedure Pain Social History Tobacco Use Types Packs/Day Years [...] 12/16/2022 8:07 EST documented in this encounter Miscellaneous Notes * Telephone Encounter - Danisha Mathew MA - 01/26/2023 0827 EDT Patient calling reporting potential infection on scalp following Mohs procedure. Patient reports pain and oozing when touching it, but cannot see the wound given its location. Stated that the wound popped open and there was a white blob that she began to pull out with tweezers. Attempted to reach one of the nurses but was unable to. Scheduled today (01/26/23) at 14:30 with nursing team. Patient understood and had no further questions. DANISHA MATHEW MA 01/26/2023 8:28 documented in this encounter Plan of Treatment Not on file documented as of this encounter Visit Diagnoses Not on filedocumented in this encounter Care Teams Vascular Ultrasound Technician Relationship Specialty Start Date End Date Kirby Alba ND [facility] [place] [address] PCP - General 07/21/17 12/04/23 None, Provider PCP - General 12/05/23 01/13/24 Venancio Henriquez MD [address] [place] [address] [address] [place] [address] PCP - General 01/14/24 documented as of this encounter
--- OUTSIDE RECORDS SUMMARY | 2024-10-13 11:38 | XMS_ITS | Encounter Summary ---
Author Organization [facility] Address [address] [place] [address] Care Team Providers Care Network Firewall Engineer Name Role Phone ParthKirby rojas CHRISTIANO Primary Care Provider [phone] None, Provider Primary Care Provider Venancio Ward MD Primary Care Provide r Encounter Details Date Type Department Care Team (Late st Contact Info) Description 07/25/2020 Lab Requisition [facility] Pathology & Laboratory Medicine - [facility] [address] [place] [address] Soheila Stephen, CHRISTIANO [address] [place] [address] Encounter for gynecological examination (general) [...] findings documented in this encounter Care Teams Network Firewall Engineer Relationship Specialty Start Date End Date ParthKirbyCHRISTIANO [address] [place], [place] [id number] PCP - General 07/21/17 12/04/23 None, Provider PCP - General 12/05/23 01/13/24 Venancio Henriquez MD [address] [place] [id number] PCP - General 01/14/24 documented as of this encounter
--- OUTSIDE RECORDS SUMMARY | 2024-10-13 11:38 | XMS_ITS | Encounter Summary ---
[facility] [place] [address] Care Team Providers Care Community Assistant Name Role Phone None Primary Care Provider Unavailabl e Encounter Details Date Type Department Care Team (Late st Contact Info) Description 12/31/2023 Ancillary Procedure Radiology at [facility] [address] [place] [id number] Chris Peres MD [address] [place] [address] Social History Tobacco Use Types Packs/Day Years Used Date Smoking Tobacco: Never Assessed Sex and Gender Information Value Date Recorded Sex Assigned at Not on file Gender Identity Not on file Sexual Orientation Not on file documented as of this encounter Plan of Treatment Not on file documented as of this encounter Procedures Procedure Name Priority Date/Time Associated Diagnosis Comments FILM LIBRARY STORAGE ONLY MR SPINE Routine 12/31/2023 12:00 AM EST documented in this encounter Results * Film Library- Storage Only MR Spine (12/31/2023 12:00 AM EST) Narrative RANJAN GANDHI - 01/11/2024 3:55 PM EDT This exam is auto-finalizing. It's purpose is for storage only. Chris Peres MD IMG FILM LIBRARY ORD ERABLES [place], [place] documented in this encounter Visit Diagnoses Not on filedocumented in this encounter Care Teams Community Assistant Relationship Specialty Start Date End Date None None PCP - General 09/24/10 documented as of this encounter
--- OUTSIDE RECORDS SUMMARY | 2024-10-13 11:38 | XMS_ITS | Encounter Summary ---
Author Organization [facility] Address [address] [place] [address] Care Team Providers Care Communications Administrator Name Role Phone Venancio Henriquez MD Primary Care Provide r Encounter Details Date Type Department Care Team (Late st Contact Info) Description 05/12/2024 Lab Requisition [facility] Pathology & Laboratory Medicine - [facility] [address] [place] [address] Sheryl Gutiérrez [address] [place] [address] Neoplasm of uncertain behavior of [...] Date/Time Associated Diagnosis Comments SURGICAL PATHOLOGY Today 05/11/2024 11 :31 EDT Neoplasm of uncertain behavior of skin documented in this encounter Results * SURGICAL PATHOLOGY (05/11/2024 11:31 EDT) Note to Patient The following pathology results have been interpreted by your pathologist and may be available to you before your health provider has had the opportunity to review them. Please allow time for your provider to receive these results and explore management options, if applicable. 05/13/2024 13:59 [facility] Final Diagnosis A. SKIN OF MID BACK, RIGHT SUPERIOR MEDIAL, SHAVE BIOPSY: - Melanocytic nevus, compound type. 05/13/2024 13:59 [facility] Attestation By the signature below, the attending physician certifies that they have 1) personally conducted a gross and/or microscopic examination of the described specimen(s), and/or personally interpreted the results of laboratory testing of the described specimen(s), and 2) personally rendered or confirmed the above diagnosis. 05/13/2024 13:59 [facility] at 1359 Microscopic Description Sections are of a pedunculated papule. The epidermis is hyperplastic with accentuation of the rete architecture and formation of horn pseudocysts. The papule is formed by a circumscribed and symmetric compound proliferation of melanocytes. The junctional component consists primarily of nests. The nests are generally small but vary to a mild degree in shape. The melanocytes are slightly enlarged but have relatively uniform round-oval nuclei and a moderate amount of cytoplasm containing melanin pigment. The dermal component consists of nests, cords, and strands of similar melanocytes showing senior telecommunications specialist maturation with descent. 05/13/2024 13:59 [facility] Clinical History Inflamed pigmented papule with hemorrhagic crusting; Ddx: Irritated nevus vs other; clinical diagnosis code: D48.5 05/13/2024 13:59 EDT [facility] Gross Description A. Received in formalin labelled with proper patient identification (initials C, S) and right superior medial midback is a 0.5 x 0.5 cm calle irregular skin shave. The epidermis displays a 0.6 x 0.5 cm calle-brown irregular papule. The specimen is inked, bisected and entirely submitted in A1. MAMTA GRANADOS(ASCP) 05/12/2024 9:21 05/13/2024 13:59 EDT [facility] Performing Lab [facility] 05/13/2024 13:59 EDT [facility] Scanned Images 05/13/2024 13:59 EDT [facility] Tissue SPECIMEN FROM SKIN / Unknown 05/11/2024 11:31 EDT 05/12/2024 8:23 EDT us Sheryl Gutiérrez PATHOLOGY ORDERABLES Final Resul t [facility] [address] [place] [address] documented in this encounter Visit Diagnoses Diagnosis Neoplasm of uncertain behavior of skin documented in this encounter Care Teams Communications Administrator Relationship Specialty Start Date End Date Venancio Henriquez MD [address] [place] [address] PCP - General 01/14/24 documented as of this encounter
--- OUTSIDE RECORDS SUMMARY | 2024-10-13 11:38 | XMS_ITS | Encounter Summary ---
Author Organization 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 Encounter Details Date Type Department Care Team (Late st Contact Info) Description 05/04/2023 9:45 EDT Office Visit [facility] Dermatology 3rd Floor [facility] [address] [place], [place] [phone] Deena Euceda MD [address] [facility], [address] [place] [address] History of melanoma in situ (Primary Dx); Scalp alopecia; Scar Social History Tobacco Use Types Packs/Day Years [...] 12/16/2022 8:07 EST documented in this encounter Progress Notes * Lexi Mckinney MD - 05/04/2023 0945 EDT Mohs Follow Up Note Chief Complaint Patient presents with ??? 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 SPECIALTY COMMENTS 1. 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 ?? She notes that she used the topical steroid that was recommended for 1 month and then stopped because she was having chest pain. She got a new wound book and has been using supplements as recommended in her book. She is taking glucosamine and using hyaluronic acid. ?? She states that she thinks it is better. She states that the scar was more white and then has had some more inflammation after having some bug bites near the site. ?? She has no additional concerns she wishes to discuss today. For full Medical, Surgical, Family, and Social histories as well as Review of Systems, Medications and Allergies please see those sections of this encounter in the electronic chart which I have personally reviewed. OBJECTIVE FOCUSED SKIN EXAM: A focused cutaneous examination of the scalp is performed. The exam was notable for the following findings: ?? Well healed scar on the left frontal scalp without nodularity, ulceration or other concerning signs of recurrence. ?? Patch of non-scarring hair loss on the scalp around the scar on her scalp. Some regrowth (1cm) beginning within and around the scar. ASSESSMENT ??? 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 ??? Freida-scar alopecia of the scalp with some short hair regrowth, favor local telogen effluvium -type reaction. PLAN ??? Freida-Scar Alopecia of the Scalp: ? Patient elects to continue MCCANN. She will continue with diligent sun protection. ??? SUN PROTECTION AND SELF EXAMS: Patient advised that individuals with a history of skin cancer have an increased risk for development of new skin cancers. Recommended regular self skin examinations and to call our office for any new, changing or ugly duckling skin lesions prior to next appointment. The importance of sun avoidance and sun protection with clothing and broad spectrum sunscreens(SPF 30 or above) for primary prevention of new skin cancers reviewed. ??? Patient will follow up with [facility] for ongoing skin surveillance examinationsand return to see me as needed. Lexi Mckinney MD 05/04/2023 13:43 Attestation statement: I performed or was present during the jaime or critical portions of the visit and participated in the management of the patient. I agree with the findings and plan of care documented in the resident's/fellow's note. Deena Euceda MD Dermatology & Mohs Surgery Associate Fire Extinguisher Tester, Mohs Surgery Fellowship agriculture inspector, Dermatology Division [facility] 05/04/2023 13:44 documented in this encounter Plan of Treatment Not on file documented as of this encounter Visit Diagnoses Diagnosis History of melanoma in situ- Primary Personal history of malignant melanoma of skin Scalp alopecia Alopecia, unspecified Scar Scar condition and fibrosis of skin documented in this encounter Care Teams Hatchery Man Relationship Specialty Start Date End Date Kirby Alba ND [address] [place] [address] PCP - General 07/21/17 12/04/23 documented as of this encounter
--- OUTSIDE RECORDS SUMMARY | 2024-10-13 11:38 | XMS_ITS | Encounter Summary ---
Author Organization [facility] Address [address] [place] [address] Care Team Providers Care Manufacturing Engineer Assembly Name Role Phone None, Provider Primary Care Provider Unavailabl e Reason for Visit * Radiology Services (Routine/Next Available) - Authorization Not Required Specialty Diagnoses / Procedures Referred By Contac t Referred To Contact Diagnoses Low back pain, unspecified Spinal instabilities, lumbosacral region Procedures XR LUMBAR SPINE 2-3 VIEWS XR LUMBAR SPINE 1 VIEW Caroline Hitchcock, DO [address] [facility] [address] [place] [address] Phone: tel: fax: [facility] Referral ID Status Reason Start Date Expiration Date Visits Requested Visits Authorized [id number] Authorization Not Required 12/04/2023 1 1 Encounter Details Date Type Department Care Team (Latest Contact Info) Description 12/05/2023 10:49 EST - 12/05/2023 23:59 [facility] Hospital Encounter [facility] [address] [place], [place] [address] Low back pain, unspecified; Spinal instabilities, lumbosacral region Discharge Disposition: Home or Self Care Social [...] Procedure Name Priority Date/Time Associated Diagnosis Comments XR LUMBAR SPINE 2-3 VIEWS Routine 12/05/2023 11:03 EST Low back pain, unspecified Spinal instabilities, lumbosacral region documented in this encounter Results * XR LUMBAR SPINE 2-3 VIEWS (12/05/2023 11:03 EST) Anatomical Region Laterality Modality Spine Computed Radiogr aphy 12/05/2023 10:5 9 EST Impressions 12/07/2023 10:16 EST Mild degenerative disk disease, mildly progressive as compared with 01/20/2018, which could be better evaluated by means of MRI as clinically indicated. THIS DOCUMENT HAS BEEN ELECTRONICALLY SIGNED BY MYKEL KHAN MD FOR ANY QUESTIONS OR CONCERNS REGARDING THIS REPORT PLEASE CALL [facility] AT [phone] Narrative 12/07/2023 10:16 EST PROCEDURE INFORMATION: Exam: XR Lumbosacral Spine Exam date and time: 12/05/2023 10:59 AM Age: 63 years old Clinical indication: Spinal instabilities, lumbosacral region; Low back pain, unspecified; Other: Lumbosacral pain and instability, progressively worsening failed PT and nsaids TECHNIQUE: Imaging protocol: Radiologic exam of the lumbosacral spine. Views: 2 or 3 views. COMPARISON: CR L SPINE 2-3 VIEWS 01/20/2018 9:59 AM FINDINGS: Bones/joints: Vertebral body heights are intact. Spinal alignment is maintained. The pedicles appear intact. No acute fracture is identified. There is mild multilevel facet arthrosis, disc space narrowing and marginal osteophyte formation. This is mildly progressive. Soft tissues: Grossly unremarkable. Procedure Note Mykel Khan MD - 12/07/2023 PROCEDURE INFORMATION: Exam: XR Lumbosacral Spine Exam date and time: 12/05/2023 10:59 AM Age: 63 years old Clinical indication: Spinal instabilities, lumbosacral region; Low backpain, unspecified; Other: Lumbosacral pain and instability, progressivelyworsening failed PT and nsaids TECHNIQUE: Imaging protocol: Radiologic exam of the lumbosacral spine. Views: 2 or 3 views. COMPARISON: CR L SPINE 2-3 VIEWS 01/20/2018 9:59 AM FINDINGS: Bones/joints: Vertebral body heights are intact. Spinal alignment is maintained. The pedicles appear intact. No acute fracture is identified.There is mild multilevel facet arthrosis, disc space narrowing and marginal osteophyte formation. This is mildly progressive. Soft tissues: Grossly unremarkable. IMPRESSION Mild degenerative disk disease, mildly progressive as compared with01/20/2018, which could be better evaluated by means of MRI as clinically indicated. THIS DOCUMENT HAS BEEN ELECTRONICALLY SIGNED BY MYKEL KHAN MD FOR ANY QUESTIONS OR CONCERNS REGARDING THIS REPORT PLEASE CALL [facility] [phone] us Caroline Hinson Fuersjosean DO IM[facility] DI[facility]NOSTIC IMAGING GUILLERMINA HUTCHINSON Final Result documented in this encounter Visit Diagnoses Diagnosis Low back pain, unspecified Spinal instabilities, lumbosacral region documented in this encounter Care Teams Manufacturing Engineer Assembly Relationship Specialty Start Date End Date None, Provider PCP - General 12/05/23 01/13/24 documented as of this encounter
--- OUTSIDE RECORDS SUMMARY | 2024-10-13 11:38 | XMS_ITS | Encounter Summary ---
Author Organization [facility] Address [address] [place] [address] Care Team Providers Care Tractor Mechanic Helper Name Role Phone Kirby Alba ND Primary Care Provider [phone] Reason for Visit * Reason Comments Suture / Staple Removal S/P MOHS MIS lef t frontal scalp Encounter Details Date Type Department Care Team (Late st Contact Info) Description 12/26/2022 13:30 EST Nurse Only [facility] Dermatology 5th Floor [facility] [address] [place] [address] Nursing Team, [facility] Dermatology Mohs Visit for suture removal (Primary Dx) Social History Tobacco Use Types Packs/Day Years [...] documented in this encounter Progress Notes * iJm Tamez MA - 12/26/2022 1330 EST Images from the original note were not included. SUTURE REMOVAL NOTE CC: SUTURE REMOVAL Ms. 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 SUBJECTIVE: Patient reports no concern. OBJECTIVE: There were no vitals taken for this visit. Wound edges: well-approximated and dehisced near the anterior portion of the incision Wound site: swollen and pink Drainage: serous Graft site: N/A [place] site: N/A Flap site: N/A PLAN: /ANNE/RN consulted: Yes Wound cleansed from center outward with normal saline and hibiclens Sutures: all natalia removed Dressing: Vaseline applied, no bandage FOLLOW UP Patient advised to return to follow-up care as planned or sooner if concerned. Post suture removal wound care instructions given to patient. Understanding verbalized by patient, no barriers to learning. Note: I was supervised by Dennis Feng MD who was present and immediately available in the office suite. JIM TAMEZ MA 12/26/22 9:05 documented in this encounter Plan of Treatment Not on file documented as of this encounter Visit Diagnoses Diagnosis Visit for suture removal- Primary Encounter for removal of sutures documented in this encounter Care Teams Tractor Mechanic Helper Relationship Specialty Start Date End Date Kirby Alba ND [address] [place] [address] PCP - General 07/21/17 12/04/23 documented as of this encounter
--- OUTSIDE RECORDS SUMMARY | 2024-10-13 11:38 | XMS_ITS | Encounter Summary ---
Author Organization [facility] Address [address] [place] [address] Care Team Providers Care Ict Support Engineer Name Role Phone Kirby Alba ND Primary Care Provider [phone] Encounter Details Date Type Department Care Team (Late st Contact Info) Description 01/30/2023 Orders Only [facility] Dermatology 5th Floor [facility] [address] [place], [place] [address] Markos Jefferson MD [address] [place] [id number] Social History Tobacco Use Types Packs/Day Years [...] 12/16/2022 8:07 EST documented in this encounter Ordered Prescriptions Prescription Sig Dispense Quantity Refills Last Filled Start Date End Date fluocinonide (LIDEX) 0.05 % ointment Apply topically 2 times daily. Do not apply to face, armpit or groin. 30 g 3 01/30/2023 documented in this encounter Progress Notes * Markos Jefferson MD - 01/30/2023 1217 EDT Lidex BID to affected area on scalp for EPD following surgery as discussed with patient. Follow-up in clinic in 8 weeks. documented in this encounter Plan of Treatment Not on file documented as of this encounter Visit Diagnoses Not on filedocumented in this encounter Care Teams Ict Support Engineer Relationship Specialty Start Date End Date Kirby Alba ND [address] [place] [id number] PCP - General 07/21/17 12/04/23 documented as of this encounter
--- OUTSIDE RECORDS SUMMARY | 2024-10-13 11:38 | XMS_ITS | Encounter Summary ---
Author Organization [facility] Address [address] [place] [address] Care Team Providers Care Computer Applications Instructor Name Role Phone Kirby Alba ND Primary Care Provider [phone] Reason for Visit * Reason Onset Date Comments Other 11/28/2022 Encounter Details Date Type Department Care Team (Late st Contact Info) Description 11/28/2022 Telephone [facility] Dermatology 3rd Floor [facility] [address] [place], [place] [address] Deena Euceda MD [address] [facility] [place] [address] Other Social History Tobacco Use Types Packs/Day Years [...] encounter Miscellaneous Notes * Telephone Encounter - Jim Tamez MA - 12/01/2022 0924 EST Spoke with patient, all questions answered satisfactorily JIM TAMEZ MA 12/01/2022 9:24 * Telephone Encounter - Marcelina Salinas - 11/28/2022 1410 EST Patient is having a Mohs appt. On 12/16/22 and was wondering when her stitches would be removed. Please advise. documented in this encounter Plan of Treatment Not on file documented as of this encounter Visit Diagnoses Not on filedocumented in this encounter Care Teams Computer Applications Instructor Relationship Specialty Start Date End Date Kirby Alba ND [address] [place] [address] PCP - General 07/21/17 12/04/23 documented as of this encounter
--- OUTSIDE RECORDS SUMMARY | 2024-10-13 11:38 | XMS_ITS | Encounter Summary ---
Author Organization [facility] Address [address] [place] [address] Care Team Providers Care Mobile Sales Expert Name Role Phone Kirby Alba ND Primary Care Provider [phone] Encounter Details Date Type Department Care Team (Late st Contact Info) Description 01/20/2018 Phlebotomy Only [facility] [address] [place] [address] Fast Food Server, Outpatient Social History Tobacco Use Types Packs/Day Years [...] on filedocumented in this encounter Care Teams Mobile Sales Expert Relationship Specialty Start Date End Date Kirby Alba ND [address] [place] [address] PCP - General 07/21/17 12/04/23 documented as of this encounter
--- OUTSIDE RECORDS SUMMARY | 2024-10-13 11:38 | XMS_ITS | Encounter Summary ---
Author Organization [facility] Address [address] [place] [address] Care Team Providers Care Fashion Patternmaker Name Role Phone ParthKirby rojas CHRISTIANO Primary Care Provider [phone] Reason for Visit * Reason Comments Melanoma Left medial frontal scalp * Consult (Routine) - Authorization Not Required Specialty Diagnoses / Procedures Referred By Abby de paz Referred To Contact Diagnoses Melanoma in situ of scalp (HCC-CMS) Sheryl Gutiérrez [address] [place] [address] DR GARRIDO [address] [place] [id number] Phone: tel: fax: [facility] Dermatology [address] [place] [id number] Phone: tel: fax: Referral ID Status Reason Start Date Expiration Date Visits Requested Visits Authorized [id number] Authorization Not Required 1 1 Encounter Details Date Type Department Care Team (Late st Contact Info) Description 12/16/2022 8:00 EST Office Visit [facility] Dermatology [address] [id number] Deena Euceda MD [address] [facility], [address] [place] [address] 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) Social History Tobacco Use Types [...] on file documented as of this encounter Last Filed Vital Signs Vital Sign Reading Time Taken Comments Blood Pressure 141/70 12/16/2022 0807 EST Pulse 76 12/16/2022 0807 EST Temperature - - Respiratory Rate - - Oxygen Saturation - - Inhaled Oxygen Concentration - - Weight - - Height - - Body Mass Index - - documented in this encounter Functional Status * Because of [...] 12/16/2022 8:07 EST documented in this encounter Patient Instructions * Patient Instructions* Alyssa Tamez MA - 12/16/2022 8:00 EST CARE FOLLOWING YOUR SKIN SURGERY- Stapled Wound Care ACTIVITY: No strenuous activity for 48 hours (this includes gardening or heavy lifting of any kind). Resume moderate activity in 48 hours. Walking slowly/strolling is an excellent light activity during the first week. Running and weightlifting are not. If your surgery was on your head or neck, elevate your head with pillows when you lie down for the first few nights (consider sleeping in a recliner if you have one), and don't bend over to potato picker objects or tie shoes for a few days if you can avoid it. Do not drink alcoholic beverages for 48 hours. DISCOMFORT: Do not use aspirin or products containing aspirin for 3 days after your surgery, unless approved byyour doctor. To relieve discomfort, you may take acetaminophen (for example, TylenolTM or Extra-Strength TylenolTM) as directed. It actually works very well for this kind of pain. And, if you combine this with ibuprofen (AdviTM) the two together are often very helpful in relieving pain (as helpful as VicodinTM in one study). If your doctor has given you a prescription for Vicodin, Tylenol with codeine, DilaudidTM or PercocetTM, or a different medicine, use as directed. After the first night (when the numbing medicine wears off and it hurts the most), pain should get slowly better, not worse. A severe increase in pain may indicate a problem. Call the office or Dr. Euceda directly if after hours if this occurs. Numbness, itching and sensitivity to temperature changes can occur after surgery and may take up to18 months to normalize. BLEEDING, BRUISING, AND SWELLING: It is normal for your wound to ooze a small amount of blood and stain the dressing. Expect bruising and swelling in the area of your surgery to be the most noticeable 48 to 72 hours after surgery. Bruising and swelling usually begin to lessen 4 to 5 days after surgery. It should start to fade in 10-14 days. You may minimize swelling by sleeping with your head elevated on several pillows. If the swelling worsens rapidly or becomes increasingly tender, contact your doctor. If your wound bleeds enough that the blood heavily soaks through to the outside of your bandage, dothe following: Leave the bandage in place. Use tightly rolled up gauze or a cloth to apply direct pressure over the bandage for 20 minutes (nopeeking). If there is substantial bleeding that does not resolve with pressure, please call the office or proceed to the nearest emergency room or call 911 for assistance. Use additional gauze and tape to maintain pressure once the bleeding has stopped. INFECTION: It is normal for your wound to be slightly sore and pink. If the area becomes increasingly tender, red or warm, or if you develop fever and chills, then contact your physician. DAILY WOUND CARE: Always wash your hands with soap and water before touching the bandage. Keep the white bulky pressure bandage in place for at least 24-48 hours after surgery. If the bandage becomes blood tinged or loose, reinforce it with gauze & tape. (See above for management of bleeding). GENTLY remove the bulky white pressure bandage in 24-48 hours. Rinse the stapled area with tap water (shower/bathe/shampoo normally). Dry wound with cotton swab or gauze pad. Apply Vaseline/petroleum jelly to the natalia, but do not use NeosporinTM. Cover the wound with a bandaid or nonstick gauze pad & paper tape. Repeat wound care once a day until your natalia are removed. WHEN TO CONTACT YOUR PHYSICAN: Your wound continues to bleed briskly through the bandage after you have reinforced it and applied firm pressure for 20 minutes. Acetaminophen has not relieved your discomfort. Your wound becomes increasingly sore, tender, red, or warm. Your surgery site rapidly swells. CONTACT INFORMATION: To reach the distribution operations manager physician: During office hours: 8:00 am - 5:00 PM Thursday through Thursday Call: [phone] Ask to speak with a surgery nurse AFTER HOURS/WEEKENDS/HOLIDAYS: First call Dr. Deena Euceda's cell phone: [phone]; if unable to reach Dr. Euceda, Call [phone] for the MOHS surgeon distribution operations manager. documented in this encounter Progress Notes * Markos Jefferson MD - 12/16/2022 0800 EST Images from the original note were not included. MOHS SURGERY POST-OP SUMMARY with MART - 1 immunostains Jessica Connelly is a 62 y.o. year old female who underwent Mohs surgery today 12/16/2022. The following is a summary of the operative findings: Lesion 1 Melanoma in situ (MIS) Location left frontal scalp Size Preop (cm) 1.7 cm x 1.1 cm Size Postop (cm) 2.8 cm x 2.1 cm Stages 1 Depth of Excision fascia Repair complex linear repair Ms. Connelly was discharged from the operative suite in good condition. She was carefully instructed in postoperative wound care both verbally and in writing. The patient will return for staple removal in 9 days. She will otherwise f/u with Dr. Sheryl Gutiérrez at [facility] for ongoing skin checks and return to see me as needed. Note: STAGING BIOPSY (PERMANENT SECTIONS): The margins were evaluated and found to be clear by Mohssurgery. Prior to initiating Mohs surgery, the bulk of the residual lesion was removed and sent to pathology for further characterization for staging and prognostic purposes. The patient will be notified of the final pathology results within the next 7 days and additional recommendations will be made as indicated at that time. Deena Euceda MD Dermatology & Mohs Surgery Associate Court Recording Monitor, Mohs Surgery Fellowship cleaning crew member, Dermatology Division [facility] 12/16/2022 13:02 MOHS EVALUATION NOTE Chief Complaint Patient presents with ??? Melanoma Left medial frontal scalp Subjective: Jessica Connelly is a 62 y.o. year old female who presents for evaluation and treatment recommendations for skin cancer. The patient was referred to us by Dr. Sheryl Gutiérrez. She notes that this lesion has been present for an unknown duration of time and reports no symptoms. Surgical Risk factors: Pacemaker/ICD: none Anticoagulants: none and warfarin (Coumadin) Total joint replacements/valves: none Allergies: Patient is allergic to codeine, other - see comments, and penicillins. Immunosuppression: none Smoking status: reports that she has quit smoking. Her smoking use included cigarettes. She has never used smokeless tobacco. For full Medical, Surgical, Family, and Social histories as well as Review of Systems, Medications and Allergies please see those sections of this encounter in the electronic chart which I have personally reviewed. Objective: The following data was reviewed: external note(s) from referring provider and pathology report. Examination of the affected area revealed the following: ?? An approximately 1.7 cm x 1.1 cm black and brown, patch located on the left frontal scalp. Pathology: A. SKIN OF SCALP, LEFT MEDIAL FRONTAL, SHAVE BIOPSY: - Melanoma in situ. See comment and synoptic. 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 The diagnosis, etiology, prognosis and treatment options were reviewed. ?? Due to the need for a high cure rate and optimum functional and aesthetic outcome, I feel that Mohs surgery is indicated. The risks of Mohs surgery and potential reconstructive surgery, including:bleeding, infection, scarring, recurrence, injury to functionally or cosmetically important nerve structures and an unsatisfactory cosmetic result were reviewed. The patient was given an opportunity to ask questions, and I believe that all of her questions were answered satisfactorily. Ms. Connelly understands that following Mohs surgery an operative repair may be required and may involve substantial suturing. We have jointly planned to have me repair the wound at the day of surgery if needed. She understands that it typically takes 4 to 6 months for wounds to heal before a decision can be made about the final cosmetic result and that in some cases a revision may be necessary to optimize the outcome. I explained to Ms. Connelly that in addition to the risk of recurrence from her skin cancer shehas an increased risk of developing additional new skin cancers elsewhere. For that reason, follow up for ongoing skin surveillance examinations, after surgery, will be imperative. The patient has been scheduled to undergo surgery today. MOHS OPERATIVE REPORT USING MART-1 IMMUNOSTAINS Patient Name: Jessica Connelly Date of Service: December 16, 2022 Surgeon and pathologist: Deena Euceda MD Library Technician: Markos Jefferson MD Case #: [id number] Mohs AUC Score: 7 (APPROPRIATE) Preoperative Diagnosis: Melanoma in situ (MIS) Preoperative Procedure: Mohs micrographic surgery Location of Lesion: left frontal scalp Preoperative Lesion Size: 1.7 cm x 1.1 cm Preoperative Procedure: Mohs microscopically-controlled fresh tissue excision Indications: The patient presents with a melanoma in situ (MIS) complicated by the following clinical features: location critical for tissue conservation. Because of the histologic and clinical nature of the lesion, as well as its location, the need to achieve the highest cure rate while providing maximum tissue preservation warranted tumor extirpation via microscopically-controlled excision using the Mohs fresh tissue technique. Alternate therapeutic options were discussed prior to surgery. After informed consent was obtained and appropriate instruction was provided, the patient underwent tumor extirpation by the Mohs fresh tissue technique as follows: PROCEDURE - INITIAL STAGE: Patient position: supine Anesthesia: 1% lidocaine (preservative-free) Prep: Chlorhexidine Patient Vitals for the past 24 hrs: BP Pulse 12/16/22 0807 141/70 76 The patient was brought to the operative suite. The lesion was identified and was prepped in a sterile fashion. The area was infiltrated with lidocaine/epinephrine to achieve complete anesthesia and to augment hemostasis. The Mohs procedure was then carried out by Dr. Euceda as follows: An initial beveled excision was performed to the fascia with a scalpel blade and tissue scissors as indicated. 4 hashes were created in the specimen and within the adjacent epidermis for marking purposes. The Mohs specimen was excised in a sharp manner, and carefully placed in proper orientation on the surgical tray. Hemostasis of the operative wound was obtained with careful spot electrocoagulation. A sterile non-adherent dressing was applied to the operative wound. The Mohs tissue specimen was carefully transferred to the lab where the tissue was divided into 4 epidermal sections and one central section. These specimens were mapped and then handed personally bythe doctor to the customer data technician for frozen sectioning. The tissue was embedded so that the deep and surface margins lay en face and sections were made through this plane. Once the slide preparation was c omplete Dr. Euceda performed histologic evaluation and interpretation of all sections. A summary of the findings may be found below. Stage 1 findings: Wound depth fascia Sections created 5 Number of sections containing tumor 0 Histologic findings NORMAL SKIN: Sections consist of a portion of normal appearing skin, including epidermis, dermis, and subcutis. The epidermis and dermis are unremarkable. There is no evidence of malignancy at the surgical margins. The control slide was reviewed and found to be appropriately negative. There was an incidental dermal nevus at the yellow tip of specimen 2 and that was removed with the standing cone of the repair. ADDITIONAL STAGES: None With the patient clear of microscopic tumor, surgery was considered complete. The wound was repaired with a COMPLEX LINEAR closure as detailed in the separate linear repair procedure note below. Postoperative Wound Size: 2.8 cm x 2.1 cm Final Diagnosis: Melanoma in situ (MIS) Consultation with Dermatopathology: Not performed. Final Procedure: Mohs micrographic surgery Blood Loss: Minimal Operative Time: 90 minutes Complications: None Note: None PARAFFIN BIOPSY: MART-1 (Melanoma Antigen Recognized by T-cells) antibody immunostaining was used during Mohs surgery as per standard protocol, in addition to routine processing of all sections with hematoxylin and eosin (5 specimens total). The patient was informed of the procedure and its risk/cesar efits during the consent for the procedure. Additionally, prior to initiating Mohs surgery, the residual melanocytic lesion was removed and sent to pathology for further characterization, including possible invasion or depth of invasion, of the original lesion for prognostic purposes. It was not sent for margin evaluation. This tissue was not sent out from Mohs surgery and therefore was not part of the procedure. One or more of the reagents used in immunohistochemical testing in this case may not have been cleared or approved by the U.S. Food and Drug Administration (FDA). The FDA has determined that such clearance or approval is not necessary. These tests are used for clinical purposes. They should not be regarded as investigational or for research. These reagents' performance characteristics have been determined by [facility]. This laboratory is certified under the Clinical Laboratory Improvement Amendments of 1988 (CLIA-88) as qualified to perform high complexity clinical laboratory testing. The attending physician performed the procedure. COMPLEX LINEAR REPAIR Patient Information: Jessica Connelly 62 y.o. female Referring Provider: Sheryl Gutiérrez Surgeon: Deena Euceda MD Library Technician: Gilson Morrison PA-C Preoperative Diagnosis: Defect following microscopically controlled excision of melanoma in situ (MIS) Preoperative Procedure: Complex Linear Closure Wound Location: left medial frontal scalp Wound Dimensions: 2.8 cm x 2.1 cm INDICATIONS: The patient presents with an operative wound following tumor removal. After careful consideration and discussion of all repair options, it was determined that, given the location and nature of the defect, a multilayered complex linear closure offered the best chance for preservation of normal anatomic and functional relationships. Alternate options were discussed and the patient was encouraged toask questions, which, I believe, were answered appropriately. Informed consent was obtained in writing. After informed consent was obtained and appropriate instruction was provided, the patient underwent operative repair as follows. PROCEDURE: Patient Position: supine Anesthesia: 1% lidocaine plain local infiltration (preservative-free) Prep: Chlorhexidine The Mohs operative defect was identified, and the area was infiltrated with lidocaine/epinephrine to achieve complete anesthesia and to augment hemostasis. The area was prepped in the usual sterile fashion and was draped with sterile drapes. A complex linear closure was designed with care to place the operative repair within functional and cosmetic lines to minimize the postoperative distortion of normal tissues. The wound edges were prepared using a # 15 scalpel blade to precisely delineate the operative repair and were then extensively undermined with combined blunt and, as needed, sharp dissection taking great care to avoid functionally important vessels and nerves. Undermining was carried out at the level of the superficial Fascia. Hemostasis of the operative wound was obtained with careful spot electrocoagulation and ligature as indicated. The wound edges were then approximated in a layered fashion using 3.0 and 4.0 Vicryl (polyglactin 910) buried interrupted sutures at the levelof the subcutis and dermis and running skin natalia at the level of the epidermis. The final wound l ength was 5.2 cm. The wound edges were cleansed with peroxide and dressed with petrolatum, a non-adherent gauze pad and Hypafix?? tape. Verbal and written wound care instructions were given. The patient tolerated the procedure well and left the operating suite in good condition. Final Diagnosis: Defect following microscopically controlled excision. Final Procedure: Complex linear closure Blood Loss: minimal Operative Time: 45 minutes Complications: none Complex repair criteria met for this repair: Extensive undermining along the entire length of at least one wound edge, perpendicular to the closure line and equal to or greater than the maximum widthof the defect. Note: None The attending physician performed the procedure. Attestation statement: I performed or was present during the jaime or critical portions of the visit and participated in the management of the patient. I agree with the findings and plan of care documented in the resident's/fellow's note. Deena Euceda MD Dermatology & Mohs Surgery Associate Court Recording Monitor, Mohs Surgery Fellowship cleaning crew member, Dermatology Division [facility] 12/16/2022 13:03 documented in this encounter Miscellaneous Notes * Result Encounter Note - Deena Euceda MD - 12/16/2022 0800 EST Please log. I notified her of results. Deena Loja documented in this encounter Plan of Treatment Not on file documented as of this encounter Procedures Procedure Name Priority Date/Time Associated Diagnosis Comments PROCEDURE REPORTS - SCANNED 12/18/2022 11:36 EST SURGICAL PATHOLOGY Routine 12/16/2022 10 :01 EST Melanoma in situ of scalp (HCC-CMS) documented in this encounter Results * PROCEDURE REPORTS - SCANNED (12/18/2022 11:36 EST) 12/18/2022 11:3 6 EST us Scan 2 Inclusion Manager PROCEDURE/MINOR SURGICAL OR DERABLES Final Result * SURGICAL PATHOLOGY (12/16/2022 10:01 EST) Note to Patient The following pathology results have been interpreted by your pathologist and may be available to you before your health provider has had the opportunity to review them. Please allow time for your provider to receive these results and explore management options, if applicable. 12/17/2022 11:50 [facility] Final Diagnosis A. SKIN OF SCALP, CENTRAL ANTERIOR, CENTRAL DEBULK SPECIMEN, MOHS SURGICAL EXCISION: - Melanoma in situ. See comment. - Margins not applicable. - Epidermal reparative change and dermal scar with chronic inflammation, consistent with biopsy site. - Incidental melanocytic nevus, intradermal type. 12/17/2022 11:50 [facility] Diagnosis Comment The specimen represents the central debulk tissue removed at the time of Mohs surgical excision. There is residual melanoma in situ that has features similar to those noted in the previous biopsy from this site ([id number]). No invasive component is identified. There is a separate banal intradermal melanocytic nevus. The margins were evaluated at the time of surgery by frozen section analysis. Please refer to Mohs surgery procedure report for status margins. 12/17/2022 11:50 [facility] Attestation By the signature below, the attending physician certifies that they have 1) personally conducted a gross and/or microscopic examination of the described specimen(s), and/or personally interpreted the results of laboratory testing of the described specimen(s), and 2) personally rendered or confirmed the above diagnosis. 12/17/2022 11:50 [facility] at 1150 Microscopic Description Sections consist of an excision of skin that includes subcutis. There is a central zone of epidermal reparative change with dermal scar and chronic inflammation. Within the adjacent epidermis, there is a melanocytic proliferation. The proliferation consists of irregular nests and individual cells. Individual cells are crowded along the junction and show developed pagetoid migration. The melanocytes are enlarged and have abundant melanin pigment. The dermis has mild elastosis and chronic inflammation. Away from the zone of repair and the junctional proliferation, there is a dermal melanocytic proliferation. The dermal melanocytes are small and form nests, cords, and strands that mature with descent. 12/17/2022 11:50 [facility] Clinical History Central de-bulking section of MIS excised via Mohs surgery; path for confirmation of dx and prognostic information; clinical diagnosis code: D03.4 12/17/2022 11:50 [facility] Gross Description A. Received in formalin labelled with proper patient identification (initials C, S) and central anterior scal...* is an irregular portion of calle-brown hair-bearing skin (1.5 x 1.3 x 0.4 cm). There is an eccentric lombardi-brown crusted hair-bearing lesion that measures 0.5 x 0.4 cm. There is a rectangular full-thickness defect adjacent to the lesion that measures 0.9 x 0.2 cm. The specimen is received with a minimal amount of purple marking ink on the cutaneous surface. The margins are subsequently inked blue, specimen is sectioned into 5 sections and entirely submitted in A1-A2. Wendi Gambino 12/16/2022 14:49 12/17/2022 11:50 [facility] Performing Lab [facility] 12/17/2022 11:50 [facility] Scanned Images 12/17/2022 11:50 [facility] Tissue TISSUE SPECIMEN FROM SKIN / Unknown Collection, Other / Unknown 12/16/2022 10:01 EST 12/16/2022 11:37 EST us Deena Euceda MD PATHOLOGY ORDERABLES F inal Result [facility] [address] [place] [address] documented in this encounter Visit Diagnoses Diagnosis Melanoma in situ of scalp (HCC-CMS)- Primary Carcinoma in situ of scalp and skin of neck documented in this encounter Care Teams Fashion Patternmaker Relationship Specialty Start Date End Date Kirby Alba ND [address] [place] [address] PCP - General 07/21/17 12/04/23 documented as of this encounter
--- OUTSIDE RECORDS SUMMARY | 2024-10-13 11:38 | XMS_ITS | Encounter Summary ---
Author Organization [facility] Address [address] [place] [address] Care Team Providers Care Integrated Logistics Operations Manager Name Role Phone Parth Kirby ALVARADO Primary Care Provider [phone] None, Provider Primary Care Provider Venancio Ward MD Primary Care Provide r Encounter Details Date Type Department Care Team (Late st Contact Info) Description 07/27/2020 Lab Requisition [facility] Pathology & Laboratory Medicine - [facility] [address] [place] [address] Soheila Stephen, CHRISTIANO [address] [place] [address] Encounter for gynecological examination (general) [...] Procedure Name Priority Date/Time Associated Diagnosis Comments PAP TEST Today 07/25/2020 9:21 EDT Encounter for gynecological examination (general) (routine) without abnormal findings HPV DNA DETECTION WITH GENOTYPING, PCR Today 07/25/2020 9:21 EDT Encounter for gynecological examination (general) (routine) without abnormal findings documented in this encounter Results * HUMAN PAPILLOMAVIRUS (HPV) DETECTION-HIGH RISK TYPES (07/25/2020 9:21 EDT) HPV other High Risk types, PCR Negative Negative 08/02/2020 15:09 EDT [facility] Comment:No E6 or E7 mRNA is detected from HPV types 16,18,31,33,35,39,45,51,52,56,58,59,66, and 68 by digester mediated amplification. Papanicolaou smear specimen (specimen) CERVIX UTERI STRUCTURE / Unknown 07/25/2020 9:21 EDT 08/01/2020 11:21 EDT us Soheila Stephen ND MICROBIOLOGY - GENERAL ORDERABL ES Final Result [facility] [address] [place] [address] * PAP TEST (07/25/2020 9:21 EDT) Specimens A. Cervix and/or Endocervix , ThinPrep Imaging System with Manual Evaluation 08/02/2020 15:09 T [facility] Specimen Adequacy Satisfactory for Evaluation - transformation zone component present Scant due to excessive inflammation 08/02/2020 15:09 EDT [facility] General Categorization Negative for intraepithelial lesion or malignancy 08/02/2020 15:09 [facility] Attestation . 08/02/2020 15:09 [facility] at 1509 Clinical History See below 08/02/20 15:09 EDT [facility] HPV The result for the Human Papillomavirus (HPV) Detection-High Risk Types is Negative. No E6 or E7 mRNA is detected from HPV types 16,18,31,33,35,39 ,45,51,52,56,58,5 9,66, and 68 by digester mediated amplification.Marina ting was performed on specimen [id number] and was resulted on 08/02/2020 1440 EDT by JAMISON, LAB INSTRUMENT RESULTS IN 08/02/2020 15:09 EDT [facility] Performing Lab [facility] 08/02/2020 15:09 EDT [facility] Scanned Images 08/02/2020 15:09 EDT [facility] Papanicolaou smear specimen (specimen) CERVIX UTERI STRUCTURE / Unknown 07/25/2020 9:21 EDT 07/27/2020 8:35 EDT us Soheila Stephen ND PATHOLOGY ORDERABLES Final Resu lt [facility] [address] [place] [address] documented in this encounter Visit Diagnoses Diagnosis Encounter for gynecological examination (general) (routine) without abnormal findings documented in this encounter Care Teams Integrated Logistics Operations Manager Relationship Specialty Start Date End Date Kirby Alba ND [address] [place], [place] [address] PCP - General 07/21/17 12/04/23 None, Provider PCP - General 12/05/23 01/13/24 Venancio Henriquez MD [address] [place] [address] [address] [place] [address] PCP - General 01/14/24 documented as of this encounter
--- OUTSIDE RECORDS SUMMARY | 2024-10-13 11:38 | XMS_ITS | Clinical Summary ---
Author Organization [facility] [place] [address] Care Team Providers Care Ornamenter Hand Name Role Phone None Primary Care Provider Unavailabl e Social History Tobacco Use Types Packs/Day Years Used Date Smoking Tobacco: Never Assessed Sex and Gender Information Value Date Recorded Sex Assigned at Not on file Gender Identity Not on file Sexual Orientation Not on file Plan of Treatment Health Maintenance Due Date Last Done Comments CT Colonography 1959 Colonoscopy 1959 Colorectal Cancer Screening 1959 FIT DNA 1959 FIT 1959 Sigmoidoscopy (10 year) with FIT yearly 1959 Sigmoidoscopy 1959 HIV screen 1977 Hepatitis C Screening 1977 Tetanus/Diphtheria/Pertussis Vaccines (1 - Tdap) 07/08 HPV test 1989 PAP Smear 1989 Breast Cancer Share Decision Needed 1999 Breast Cancer screening 1999 Zoster vaccine (1 of 2) 2009 Advance Directive 2014 Covid-19 Vaccine ( - 2023-25 season) 2024 Influenza (Flu) vaccine (1 o f 1 - Influenza standard series) 07/03/2024 Bone Density Scan 2024 Pneumoccocal Vaccine: 65+ (1 of 1 - PCV) 2024 Care Teams Ornamenter Hand Relationship Specialty Start Date End Date None None PCP - General 09/24/10
--- OUTSIDE RECORDS SUMMARY | 2024-10-13 11:38 | XMS_ITS | Encounter Summary ---
Author Organization [facility] Address [address] [place] [address] Care Team Providers Care Entry Level Drafter Name Role Phone Cesar Bae MD Primary Care Provider [phone] Reason for Visit * Reason Onset Date Comments Appointment Related 01/02/2017 Encounter Details Date Type Department Care Team (Late st Contact Info) Description 01/02/2017 Telephone [facility] Adult Primary Care - [place] [address], [place] [id number] Cesar Bae MD [address] [place] [address] Appointment Related Social History Tobacco Use Types [...] encounter Miscellaneous Notes * Telephone Encounter - Danette Sheridan - 01/02/2017 1637 EST Left messg for patient to call and schedule appt or to confirm new pcp documented in this encounter Plan of Treatment Not on file documented as of this encounter Visit Diagnoses Not on filedocumented in this encounter Care Teams Entry Level Drafter Relationship Specialty Start Date End Date Cesar Bae MD [address] [place] [phone] PCP - General 02/15/13 07/20/17 documented as of this encounter
--- OUTSIDE RECORDS SUMMARY | 2024-10-13 11:38 | XMS_ITS | Encounter Summary ---
Author Organization [facility] Address [address] [place] [address] Care Team Providers Care Operations Support Specialist Name Role Phone Kirby Alba ND Primary Care Provider [phone] Encounter Details Date Type Department Care Team (Late st Contact Info) Description 01/29/2023 Orders Only [facility] Dermatology 5th Floor [facility] [address] [place], [place] [id number] Markos Jefferson MD [address] [place] [phone] Erosive pustular dermatosis (Primary Dx) Social History Tobacco Use Types [...] as of this encounter Visit Diagnoses Diagnosis Erosive pustular dermatosis- Primary Other specified dermatoses documented in this encounter Care Teams Operations Support Specialist Relationship Specialty Start Date End Date Kirby Alba ND [address] [place] [address] PCP - General 07/21/17 12/04/23 documented as of this encounter
--- OUTSIDE RECORDS SUMMARY | 2024-10-13 11:38 | XMS_ITS | Encounter Summary ---
Author Organization [facility] Address [address] [place] [address] Care Team Providers Care Electric [employer] Salesperson Name Role Phone ParthKirby rojas CHRISTIANO Primary Care Provider [phone] Encounter Details Date Type Department Care Team (Late st Contact Info) Description 01/20/2018 9:32 EDT - 01/20/2018 23:59 EDT Hospital Encounter [facility] [address] [place] [address] Kirby AlbaCHRISTIANO [address] [place] [address] Discharge Disposition: Auto Discharge Social History Tobacco Use Types Packs/Day Years [...] on file documented as of this encounter Discharge Diagnoses Diagnosis E56.9 Vitamin deficiency, unspecified-E56.9[ICD-10-CM] M54.30 Sciatica, unspecified side-M54.30[ICD-10-CM] R63.5 Abnormal weight gain-R63.5[ICD-10-CM] Z13.1 Encounter for screening for diabetes mellitus-Z13.1[ICD-10-CM] Z13.220 Encounter for screening for lipoid disorders-Z13.220[ICD-10-CM] E55.9 Vitamin D deficiency, unspecified-E55.9[ICD-10-CM] M48.061 Spinal stenosis, lumbar region without neurogenic danielle-M48.061[ICD-10-CM] M47.896 Other spondylosis, lumbar region-M47.896[ICD-10-CM] M47.897 Other spondylosis, lumbosacral region-M47.897[ICD-10-CM] documented in this encounter Medications at Time of Discharge EPINEPHrine (EPIPEN) 0.3 mg/0.3 mL injection Inject 0.3 mL into the muscle once as needed for 1 dose. 2 Syringe 6 06/18/2012 MULTIVITAMINS (MULTIVITAMIN ORAL) Take by mouth daily. Vit, A,D,B,C,K OMEGA-3 FATTY ACIDS (OMEGA-3 ORAL) Take by mouth daily. SELENIUM ORAL Take by mouth daily. UNABLE TO FIND daily. Med Name: Pantethine, Serrapeptase VITAMIN B COMPLEX (VIT BALANCED B-100 ORAL) Take by mouth. 4 times weekly documented as of this encounter Discharge Disposition Disposition Code Departure Means Destination Auto Discharge Home documented in this encounter Plan of Treatment Not on file documented as of this encounter Procedures Procedure Name Priority Date/Time Associated Diagnosis Comments L SPINE 2-3 VIEWS 01/20/2018 10: 11 EDT VITAMIN D (25,OH) Routine 01/20/2018 9:4 6 EDT COMPLETE BLOOD COUNT AND DIFFERENTIAL Routine 01/20/2018 9:46 EDT T3 FREE Routine 01/20/2018 9:46 EDT TSH Routine 01/20/2018 9:46 EDT T4 Routine 01/20/2018 9:46 EDT HEMOGLOBIN A1C Routine 01/20/2018 9:46 EDT VITAMIN B12 Routine 01/20/2018 9:46 EDT LIPID PROFILE (INCLUDES CHOLESTEROL, TRIGLYCERIDES, HDL, LDL) Routine 01/20/2018 9:46 EDT COMPREHENSIVE METABOLIC PANEL (CMP) Routine 01/20/2018 9:46 EDT documented in this encounter Results * L SPINE 2-3 VIEWS (01/20/2018 10:11 EDT) Anatomical Region Laterality Modality Other 01/20/2018 10:1 1 EDT 01/20/2018 14:00 EDT Narrative 01/20/2018 14:00 EDT L SPINE 2-3 VIEWS ??01/20/2018 10:11 AM Clinical History/Comments: Low back pain, sciatica-right. Comparison: None available Technique: AP and lateral views of the lumbar spine were obtained. Findings: Very slight thoracolumbar levoscoliotic curvature is demonstrated with the apex of the curve at about L2-3. Slight lateral subluxation of L3 on L4 is noted. No pratima or retrolisthesis is appreciated. Vertebral body heights are preserved. There is mild disc space narrowing at L3-4 and L4-5 consistent with disc degeneration. Mild hypertrophy of the facet joints is demonstrated at L4-5 and L5-S1. Procedure Note Mitzy Ryan MD - 01/20/2018 L SPINE 2-3 VIEWS 01/20/2018 10:11 AM Clinical History/Comments: Low back pain, sciatica-right. Comparison: None available Technique: AP and lateral views of the lumbar spine were obtained. Findings: Very slight thoracolumbar levoscoliotic curvature is demonstrated with the apex of the curve at about L2-3. Slight lateral subluxation of L3 on L4 is noted. No pratima or retrolisthesis is appreciated. Vertebral body heights are preserved. There is mild disc space narrowing at L3-4 and L4-5 consistent with disc degeneration. Mild hypertrophy of the facet joints is demonstrated at L4-5 and L5-S1. Kirby Alba ND IMG DIAGNOSTIC IMAGING ORDERA BLES Final Result * HEMAGRAM AND DIFFERENTIAL (01/20/2018 9:46 EDT) WBC 5.59 4.0 - 12.4 K/cmm 01/20/2018 11:18 [facility] RBC 4.27 3.86 - 5.04 M/cmm 01/20/2018 11:18 [facility] Hemoglobin 13.2 11.6 - 15.2 gm/dl 01/20/2018 11:18 [facility] HCT 39.8 34.9 - 44.4 % 01/20/2018 11:18 [facility] MCV 93 81 - 98 fl 01/20/2018 11:18 [facility] MCH 30.9 26.7 - 33.3 pg 01/20/2018 11:18 [facility] MCHC 33.2 32.1 - 35.9 gm/dl 01/20/2018 11:18 [facility] RDW-CV 12.9 <14.7 % 01/20/2018 11:18 [facility] RDW-SD 43.8 <50.4 fl 01/20/2018 11:18 [facility] PLT 282 141 - 377 K/cmm 01/20/2018 11:18 [facility] MPV 10.2 9.5 - 12.7 fl 01/20/2018 11:18 [facility] % Neutrophils 44.3 % 01/20/2018 11:18 [facility] % Lymphocytes 40.6 % 01/20/2018 11:18 [facility] % Monocytes 9.3 % 01/20/2018 11:18 [facility] % Eosinophils 4.5 % 01/20/2018 11:18 [facility] % Basophils 1.1 % 01/20/2018 11:18 [facility] % Immature Grans 0.2 % 01/20/2018 11:18 [facility] ABS Neutrophils 2.48 2.20 - 8.85 K/cmm 01/20/2018 11:18 [facility] ABS Lymphs 2.27 1.09 - 3.30 K/cmm 01/20/2018 11:18 T [facility] ABS Monocytes 0.52 0.1 - 0.8 K/cmm 01/20/2018 11:18 [facility] ABS Eosinophils 0.25 0.03 - 0.61 K/cmm 01/20/2018 11:18 T [facility] ABS Basophils 0.06 0.01 - 0.11 K/cmm 01/20/2018 11:18 [facility] ABS Immature Grans 0.01 0 - 0.06 K/cmm 01/20/2018 11:18 [facility] Type of Diff: Automated 01/20/2018 11:18 [facility] BLOOD SPECIMEN / Unknown 01/20/2018 9:46 EDT 01/20/2018 11:10 EDT Kirby Alba ND PACKAGES & DNA PROBE ORDERABL ES Final Result [facility] [address] [place] [address] * (ABNORMAL) COMPREHENSIVE METABOLIC PANEL (CMP) (01/20/2018 9:46 EDT) Potassium 4.4 3.5 - 5.0 mEq/L 01/20/2018 11:56 [facility] Sodium 142 136 - 145 mEq/L 01/20/2018 11:56 [facility] Chloride 103 96 - 110 mEq/L 01/20/2018 11:56 [facility] CO2 30 22 - 32 mEq/L 01/20/2018 11:56 [facility] Total Alkaline Phosphatase 65 38 - 126 U/L 01/20/2018 11:56 [facility] Bilirubin, Total <0.5 <1.4 mg/dl 01/21/20 18 11:56 [facility] AST 21 15 - 46 U/L 01/20/2018 11:56 [facility] ALT 31 <53 U/L 01/20/2018 11:56 [facility] Albumin 4.2 3.4 - 4.9 g/dl 01/20/2018 11:56 [facility] Total Protein 7.5 6.3 - 8.2 g/dl 01/20/2018 11:56 [facility] Creatinine 0.74 0.52 - 1.04 mg/dl 01/20/2018 11:56 [facility] GFR, Calculated 90 >60 ml/min/1.7 3m2 01/20/2018 11:56 [facility] Comment: eGFR calculated using CKD-EPI equation for non Americans. Multiply eGFR by 1.16 for Americans. BUN 8(L) 10 - 26 mg/dl 01/20/2018 11:56 [facility] Calcium 9.7 8.5 - 10.5 mg/dl 01/20/2018 11:56 [facility] Calculated Calcium 9.5 8.5 - 10.5 mg/dl 01/20/2018 11:56 [facility] Glucose, Serum 80 70 - 100 mg/dl 01/20/2018 11:56 [facility] Fasting? YES 01/20/2018 9:40 [facility] BLOOD SPECIMEN / Unknown 01/20/2018 9:46 EDT 01/20/2018 11:10 EDT Kirby Alba PA CHEMISTRY & BLOOD GAS ORDERAB LES Final Result Performing Organization Address [facility]/State/ZIP Co de Phone Number [facility] [address] [place] [address] * TSH (01/20/2018 9:46 EDT) TSH 4.36 0.47 - 4.68 uIU/ml 01/20/2018 12:25 T [facility] BLOOD SPECIMEN / Unknown 01/20/2018 9:46 EDT 01/20/2018 11:10 EDT [facility] Parth ND CHEMISTRY & BLOOD GAS ORDERAB LES Final Result [facility] [address] [place] [address] * T4 (01/20/2018 9:46 EDT) Pathologist [facility] T4 6.1 5.5 - 11.0 ug/dl 01/20/2018 12:12 EDT [facility] BLOOD SPECIMEN / Unknown 01/20/2018 9:46 EDT 01/20/2018 11:10 EDT Kirby Alba ND CHEMISTRY & BLOOD GAS ORDERAB LES Final Result Performing Organization Address City/[facility]/ZIP Co de Phone Number [facility] [address] [place] [address] * T3 FREE (01/20/2018 9:46 EDT) Pathologist [facility] T3, Free 3.8 2.8 - 5.3 pg/ml 01/20/2018 12:12 EDT [facility] BLOOD SPECIMEN / Unknown 01/20/2018 9:46 EDT 01/20/2018 11:10 EDT Kirby Alba ND CHEMISTRY & BLOOD GAS ORDERAB LES Final Result Performing Organization Address City/[facility]/ZIP Co de Phone Number [facility] [address] [place] [address] * VITAMIN B12 (01/20/2018 9:46 EDT) [facility] Vitamin B-12 656 211 - 911 pg/ml 01/20/2018 13:55 EDT [facility] BLOOD SPECIMEN / Unknown 01/20/2018 9:46 EDT 01/20/2018 11:10 [facility]T [facility] BLOOD GAS ORDERAB LES Final Result [facility] [address] [place] [address] * LIPID PROFILE (INCLUDES CHOLESTEROL, TRIGLYCERIDES, HDL, LDL) (01/20/2018 9:46 EDT) Cholesterol 250 mg/dl 01/20/2018 11:56 [facility] Comment: Desirable:<200 Borderline High:200-239 High:>rz=029 Triglycerides 127 mg/dl 01/20/2018 11:56 [facility] Comment: Normal:<150 Borderline High:150-199 High:200-499 Very High:>ov=798 HDL 79 mg/dl 01/20/2018 11:56 [facility] Comment: Low:<40 Normal:40-60 Desirable: >60 LDL, Calculated 146 mg/dl 8 11:56 [facility] Comment: Optimal:<100 Near Optimal:100-129 Borderline High:130-159 High:160-189 Very High:>lw=131 Chol/HDL Ratio 3.2 01/20/2018 11:56 [facility] Fasting? YES 01/20/2018 9:40 [facility] Non HDL Cholesterol 171 mg/dl 01/20/2018 11:56 [facility] Comment: Desirable:<130 Borderline:130-159 High: 160-189 Very High: >jd=506 BLOOD SPECIMEN / Unknown 01/20/2018 9:46 EDT 01/20/2018 11:10 EDT Kirby Alba ND CHEMISTRY & BLOOD GAS ORDERAB LES Final Result Performing Organization Address City/State/[facility] Co de Phone Number [facility] [address] [place] [address] * HEMOGLOBIN A1C (01/20/2018 9:46 EDT) Hemoglobin A1C 5.4 % 01/20/2018 15:16 [facility] Comment: Reference Range: <5.7% Normal 5.7-6.4% Prediabetes =>6.5% Diagnostic for diabetes (if confirmed) Goals for glycemic control in diabetes ADA 2017 For non adults with diabetes: ?? Target <7.5% For children and adolescents with type 1 diabetes: ?? Target <7.0% More or less stringent targets may be appropriate for individual patients. Est Avg Glucose 108 mg/dl 8 15:16 EDT [facility] Comment: eAG represents the A1c result expressed as average glucose in mg/dl. BLOOD SPECIMEN / Unknown 01/20/2018 9:46 EDT 01/20/2018 11:10 EDT Kirby Alba ND CHEMISTRY & BLOOD GAS ORDERAB LES Final Result Performing Organization Address City/[facility] Co de Phone Number [facility] [address] [place] [address] * VITAMIN D (25,OH) (01/20/2018 9:46 EDT) 25OH Vitamin D Tot 38.3 30 - 100 ng/ml 01/21/2018 12:29 EDT [facility] Comment: Reference Range: Deficient = <10 ng/ml Insufficient = 10-30 ng/ml Sufficient = 30-100 ng/ml Toxic = >100 ng/ml BLOOD SPECIMEN / Unknown 01/20/2018 9:46 EDT 01/20/2018 11:10 EDT Kirby Alba ND CHEMISTRY & BLOOD GAS ORDERAB LES Final Result Performing Organization Address [facility] Co de Phone Number [facility] [address] [place] [address] documented in this encounter Visit Diagnoses Not on filedocumented in this encounter Care Teams [employer] Salesperson Relationship Specialty Start Date End Date Kirby Alba ND [address] [place] [id number] PCP - General 07/21/17 12/04/23 documented as of this encounter
--- OUTSIDE RECORDS SUMMARY | 2024-10-13 11:38 | XMS_ITS | Encounter Summary ---
Author Organization [facility] Address [address] [place] [address] Care Team Providers Care Tubular Splitting Machine Tender Name Role Phone Kirby Alba ND Primary Care Provider [phone] Reason for Visit * Reason Comments Follow-up S/P MOHS MIS scalp Encounter Details Date Type Department Care Team (Late st Contact Info) Description 02/16/2023 11:00 EDT Office Visit [facility] Dermatology 3rd Floor [address] [address] Deena Euceda MD [address] [place] [address], [address] [place] [address] History of melanoma in situ [...] Progress Notes * Lexi Mckinney MD - 02/16/2023 1100 EDT Images from the original note were not included. Mohs Follow Up Note Chief Complaint Patient presents with ??? Follow-up S/P MOHS MIS scalp 12/16/2022 SPECIALTY COMMENTS 1. actinic keratoses 2. Benign nevi 3. seborrheic keratoses GAUTAM Lopez is approximately 2 months status post Mohs surgery and she returns today for follow up. ?? She notes some pustules and hair loss around her scar. She is not bothered by it and previously chose to not use steroids due to possible side effects. ?? She has no additional concerns she [...] scalp around the scar on her scalp. ASSESSMENT ??? 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 ??? Freida-scar alopecia of the scalp, favor local telogen effluvium -type reaction PLAN ?? Freida-Scar Alopecia of the Scalp: ?? Recommend fluocinonide ointment 0.05% to affected area around the scar twice daily for at least 8 weeks- will recheck in 3 months. ?? SUN PROTECTION AND SELF EXAMS: Patient advised that individuals with a history of skin cancer have an increased risk for development of new skin cancers. Recommended regular self skin examinationsand to call our office for any new, changing or ugly duckling skin lesions prior to next appointment. The importance of sun avoidance and sun protection with clothing and broad spectrum sunscreens (SPF 30 or above) for primary prevention of new skin cancers reviewed. ?? Patient will follow up with [facility] for ongoing skin surveillance examinations and return to see me as needed. Lexi Mckinney MD 02/16/2023 11:38 Attestation statement: I performed or was present during the jaime or critical portions of the visit and participated in the management of the patient. I agree with the findings and plan of care documented in the resident's/fellow's note. Deena Euceda MD Dermatology & Mohs Surgery Associate Inspector Experimental Assembly, Mohs Surgery Fellowship dielectric embossing machine operator, Dermatology Division [facility] 02/16/2023 12:12 documented in this encounter Plan of Treatment Not on file documented as of this encounter Visit Diagnoses Diagnosis History of melanoma in situ- Primary Personal history of malignant melanoma of skin Scalp alopecia Alopecia, unspecified Scar Scar condition and fibrosis of skin documented in this encounter Care Teams Tubular Splitting Machine Tender Relationship Specialty Start Date End Date Kirby Alba ND [address] [place] [id number] PCP - General 07/21/17 12/04/23 documented as of this encounter
--- OUTSIDE RECORDS SUMMARY | 2024-10-13 11:38 | XMS_ITS | Encounter Summary ---
Author Organization [facility] Address [address] [place] [address] Care Team Providers Care Contractor Buyer Name Role Phone Kirby Alba ND Primary Care Provider [phone] Reason for Visit * Reason Onset Date Comments Update 02/03/2023 Encounter Details Date Type Department Care Team (Late st Contact Info) Description 02/03/2023 Telephone [facility] Dermatology 5th Floor [facility] [address] [place] [address] Cyndie Hoffman, FLOR Update Social History Tobacco Use Types Packs/Day Years [...] encounter Miscellaneous Notes * Telephone Encounter - Marcelina Salinas - 02/09/2023 1341 EDT confired mohs f/u with Dr. Euceda on 02/16/23 at 11 am * Telephone Encounter - Jim Tamez MA - 02/03/2023 1240 EDT Left message for patient to call back and schedule Will have to be sometime in early May She can call back for cancellations If she wants to come in 02/16/23 there was a spot open this morning 02/03/23 that may be available still, but she should come in 3-4 months as well JIM TAMEZ MA 02/03/2023 12:42 * Telephone Encounter - Cyndie Hoffman RN - 02/03/2023 1136 EDT Spoke with patient who reports that she did speak with Dr. Jefferson regarding the Lidex cream. She states that after the sutures were removed the area became pink and her hair started growing back so she never picked up the Lidex. She has a friend who is a wound care nurse. She thought it looked OK. She is going to hold off on this for the time being. She still has not heard back from our office abo ut her post op follow up with Dr. Euceda. Triage note to Deena Euceda MD, Markos Jefferson MD and Chata Ibanez make them aware that patient has not used the Lidex and regarding scheduling MOHS follow up. CYNDIE HOFFMAN RN 02/03/2023 11:45 documented in this encounter Plan of Treatment Not on file documented as of this encounter Visit Diagnoses Not on filedocumented in this encounter Care Teams Contractor Buyer Relationship Specialty Start Date End Date Kirby Alba ND [address] [place] [address] PCP - General 07/21/17 12/04/23 documented as of this encounter
--- OUTSIDE RECORDS SUMMARY | 2024-10-13 11:38 | XMS_ITS | Encounter Summary ---
Author Organization [facility] Address [address] [place] [address] Care Team Providers Care Awning Maker And Installer Name Role Phone Kirby Alba ND Primary Care Provider [phone] Encounter Details Date Type Department Care Team (Late st Contact Info) Description 06/18/2019 Phlebotomy Only [facility] [address] [place] [address] Cad Librarian, Outpatient Social History Tobacco Use Types Packs/Day [...] on filedocumented in this encounter Care Teams Awning Maker And Installer Relationship Specialty Start Date End Date Kirby Alba ND [address] [place] [address] PCP - General 07/21/17 12/04/23 documented as of this encounter
--- OUTSIDE RECORDS SUMMARY | 2024-10-13 11:38 | XMS_ITS | Encounter Summary ---
Author Organization [facility] Address [address] [place] [address] Care Team Providers Care Automobile Inspector Name Role Phone Parth Kirby ALVARADO Primary Care Provider [phone] Encounter Details Date Type Department Care Team (Late st Contact Info) Description 06/18/2019 8:59 EDT - 06/18/2019 23:59 EDT Hospital Encounter [facility] [address] [place] [address] ParthKirby alvaradoCHRISTIANO [address] [place] [address] Discharge Disposition: Home or Self Care Social [...] as of this encounter Discharge Diagnoses Diagnosis Z13.220 Encounter for screening for lipoid disorders-Z13.220[ICD-10-CM] Z13.1 Encounter for screening for diabetes mellitus-Z13.1[ICD-10-CM] documented in this encounter Medications at Time [...] Code Departure Means Destination Home or Self Residential documented in this encounter Plan of Treatment Not on file documented as of this encounter Procedures Procedure Name Priority Date/Time Associated Diagnosis Comments HEMOGLOBIN A1C Routine 06/18/2019 9:17 EDT LIPID PROFILE (INCLUDES CHOLESTEROL, TRIGLYCERIDES, HDL, LDL) Routine 06/18/2019 9:17 EDT documented in this encounter Results * HEMOGLOBIN A1C (06/18/2019 9:17 EDT) Hemoglobin A1C 5.6 % 06/20/2019 10:57 EDT [facility] Comment: Reference Range: <5.7% Normal 5.7-6.4% Prediabetes =>6.5% Diagnostic for diabetes (if confirmed) Goals for glycemic control in diabetes ADA 2017 For non adults with diabetes: ?? Target <7.0% For children and adolescents with type 1 diabetes: ?? Target <7.5% More or less stringent targets may be appropriate for individual patients. Est Avg Glucose 114 mg/dl 9 10:57 EDT [facility] Comment: eAG represents the A1c result expressed as average glucose in mg/dl. BLOOD SPECIMEN / Unknown 06/18/2019 9:17 EDT 06/18/2019 9:51 EDT Kirby Alba ND CHEMISTRY & BLOOD GAS ORDERAB LES Final Result [facility] [address] [place] [address] * LIPID PROFILE (INCLUDES CHOLESTEROL, TRIGLYCERIDES, HDL, LDL) (06/18/2019 9:17 EDT) Cholesterol 217 mg/dl 06/18/2019 10:02 [facility] Comment: Slight hemolysis Desirable:<200 Borderline High:200-239 High:>fm=533 Triglycerides 95 mg/dl 06/18/2019 10:02 [facility] Comment: Slight hemolysis Normal:<150 Borderline High:150-199 High:200-499 Very High:>ry=168 HDL 77 mg/dl 06/18/2019 10:02 [facility] Comment: Slight hemolysis Low:<40 Normal:40-60 Desirable: >60 LDL, Calculated 121 mg/dl 9 10:02 [facility] Comment: Optimal:<100 Near Optimal:100-129 Borderline High:130-159 High:160-189 Very High:>pe=947 Chol/HDL Ratio 2.8 06/18/2019 10:02 [facility] Fasting? YES 06/18/2019 9:13 [facility] Non HDL Cholesterol 140 mg/dl 06/18/2019 10:02 [facility] Comment: Desirable:<130 Borderline:130-159 High: 160-189 Very High: >vl=893 BLOOD SPECIMEN / Unknown 06/18/2019 9:17 EDT 06/18/2019 9:51 EDT us Kirby Alba ND CHEMISTRY & BLOOD GAS ORDERAB LES Final Result [facility] [address] [place] [address] documented in this encounter Visit Diagnoses Not on filedocumented in this encounter Care Teams Automobile Inspector Relationship Specialty Start Date End Date Kirby Alba ND [facility] [place], [place] [address] PCP - General 07/21/17 12/04/23 documented as of this encounter
--- OUTSIDE RECORDS SUMMARY | 2024-10-13 11:38 | XMS_ITS | Encounter Summary ---
Author Organization [facility] Address [address] [place] [address] Care Team Providers Care Spinning Mule Tender Name Role Phone Kirby Alba ND Primary Care Provider [phone] Reason for Visit * Reason Comments Follow-up FBSE, H/O AK's Skin Lesion spot on lip Encounter Details Date Type Department Care Team (Late st Contact Info) Description 10/28/2018 8:45 EST Office Visit [facility] Dermatology 5th Floor [address] [id number] Shilpa Chin MD [address] [facility], [address] [place] [address] Notalgia paresthetica (Primary Dx); Sun-damaged skin; Multiple benign nevi Social History Tobacco Use Types Packs/Day Years [...] on file documented as of this encounter Progress Notes * Darlin Godinez - 10/28/2018 0845 EST Review of Systems Musculoskeletal: Positive for muscle stiffness in the morning. * Darlin Godinez - 10/28/2018 0845 EST Review of Systems Constitutional: Negative for fatigue, fever and unexpected weight change. HENT: Negative for mouth sores. Eyes: Negative for pain. Respiratory: Negative for cough and shortness of breath. Cardiovascular: Negative for chest pain and palpitations. Gastrointestinal: Negative for abdominal pain, blood in stool, constipation, diarrhea, nausea and vomiting. Genitourinary: Negative for dysuria, frequency and hematuria. Musculoskeletal: Positive for muscle stiffness in the morning. Negative for myalgias, joint swelling and arthralgias. Skin: Negative for rash. Neurological: Negative for numbness and headaches. Endo/Heme/Allergies: Does not bruise/bleed easily. Psychiatric/Behavioral: Negative for sleep disturbance. The patient is not nervous/anxious. Darlin Godinez 10/28/2018 9:19 * Maame Batres MD - 10/28/2018 0845 EST Dermatology Outpatient Visit Note Chief Complaint Patient presents with ??? Follow-up FBSE, H/O AK's ??? Skin Lesion spot on lip Dermatologic History: 1. actinic keratoses 2. Benign nevi 3. seborrheic keratoses Last Dermatology office visit: 07/22/17 SUBJECTIVE Ms. Connelly is a 58 y.o. female who presents for follow up for full body skin exam. She believes thather skin has been doing well overall. She brings up a red spot on her upper lip that has been present for approximately 4 years. It is often tender to touch, but seems to have resolved after not spending time in the sun. Deena Spencer has looked at it in the past but it has never been treated or biopsied. She also brings up a pruritic spot under her back bra strap that has been present for about 6 months. She has not tried any topical medications to the area. Denies any changing pigmented lesions. Denies any other new painful, itching, or bleeding lesions. For full Medical, Surgical, Family, and Social histories, please see the History section of this encounter in the electronic chart which I have personally reviewed. For Review of Systems, Medications and Allergies, please see those sections of this encounter in the electronic chart which I have also reviewed. She has a current medication list which includes the following prescription(s): epinephrine, multivitamin, omega-3/dha/epa/fish oil, selenium, UNABLE TO FIND, and vitamin b complex. She is allergic to codeine; other - see comments; and penicillins. OBJECTIVE VS: LMP 11/15/2010 Ms. Connelly is healthy, well developed, well-nourished and in no acute distress female sitting on theexamination table with a normal affect. She is alert and oriented to person, place and time. She has Amin type II skin. Cutaneous full body examination including the hair, scalp, face, eyelids, lips, neck, chest, back, abdomen, all four extremities, hands, feet, digits and nails was performed.The examination was normal with the addition of the following comments: - left central back: noticeable excoriations without skin surface changes. Mild dermatographism - photo-distribution: multiple light brown smudgy macules - upper chest: numerous stuck on appearing papules and crockett red macules - upper lip: normal appearing skin without surface changes - trunk and extremities: scattered medium brown homogenous papules ASSESSMENT/PLAN Notalgia paresthetica and mild dermatographism - The benign nature of the patient's exam was discussed. And reassurance provided - Discussed that notalgia paresthetica often occurs in setting of a cervical spine injury and presents as itch without rash. However, patient also had mild dermatographism in areas that she scratched. - She may try oral anti-histamines to see if they help with dermatographism, although she will try to hold off. - She may also try Sarna lotion OTC prn and get a back dry kiln feeder Multiple benign nevi - Explained that though the patient does have many nevi, none are concerning today or that warrantsbiopsy at this point. We explained the patient should continue to perform self skin exams, and notify the clinic if one of the lesions is changing, as this may prompt further clinical evaluation. Thepatient understands and agrees. Sun-damaged skin - The nature of sun-induced photo-aging and skin cancers is discussed. Sun avoidance, protective clothing, and the use of 30-SPF sunscreens is advised. Observe closely for skin damage/changes, and call if such occurs. She will f/u as planned or in the interim should problems arise. Return in about 2 years (around 10/28/2020) for FBSE. Maame Batres MD 10/28/2018 9:42 Attestation statement: I saw and examined the patient with the resident/fellow. I agree with the findings and plan of care documented in the resident's/fellow's note. Shilpa Chin MD 10/28/2018 12:20 documented in this encounter Plan of Treatment Not on file documented as of this encounter Visit Diagnoses Diagnosis Notalgia paresthetica- Primary Disturbance of skin sensation Sun-damaged skin Other dermatitis due to solar radiation Multiple benign nevi Benign neoplasm of skin, site unspecified documented in this encounter Care Teams Spinning Mule Tender Relationship Specialty Start Date End Date Kirby Alba ND [facility] [place] [address] PCP - General 07/21/17 12/04/23 documented as of this encounter
--- OUTSIDE RECORDS SUMMARY | 2024-10-13 11:38 | XMS_ITS | Encounter Summary ---
Author Organization [facility] Address [address] [place] [address] Care Team Providers Care Superintendent Circus Name Role Phone None, Provider Primary Care Provider Unavailabl e Reason for Referral * (Routine/Next Available) - Receiving Office to Obtain Authorization Specialty Diagnoses / Procedures Referred By Contac t Referred To Contact Procedures MR OUTSIDE IMAGES LUMBAR SPINE Imaging, External Referral ID Status Reason Start Date Expiration Date Visits Requested Visits Authorized [id number] Receiving Office to Obtain Authorization 01/07/2024 1 1 Reason for Visit * (Routine/Next Available) - Receiving Office to Obtain Authorization Specialty Diagnoses / Procedures Referred By Contac t Referred To Contact Procedures MR OUTSIDE IMAGES LUMBAR SPINE Imaging, External Referral ID Status Reason Start Date Expiration Date Visits Requested Visits Authorized [id number] Receiving Office to Obtain Authorization 01/07/2024 1 1 Encounter Details Date Type Department Care Team (Latest Contact Info) Description 12/31/2023 - 12/31/2023 23:59 EST Hospital Encounter [facility] [place] Discharge Disposition: Home or Self Care Social [...] Name Priority Date/Time Associated Diagnosis Comments MR OUTSIDE IMAGES LUMBAR SPINE Routine 12/31/2023 11:44 EST documented in this encounter Results * MR OUTSIDE IMAGES LUMBAR SPINE (12/31/2023 11:44 EST) Narrative 01/07/2024 11:45 EST This is a non-reportable exam. us External Imaging IMG OTHER IMAGING ORDERABLES Fi nal Result documented in this encounter Visit Diagnoses Not on filedocumented in this encounter Care Teams Superintendent Circus Relationship Specialty Start Date End Date None, Provider PCP - General 12/05/23 01/13/24 documented as of this encounter
--- OUTSIDE RECORDS SUMMARY | 2024-10-13 11:38 | XMS_ITS | Encounter Summary ---
Author Organization [facility] Address [address] [place] [address] Care Team Providers Care Statement Clerks Manager Name Role Phone ParthKirby rojas CHRISTIANO Primary Care Provider [phone] None, Provider Primary Care Provider Venancio Ward MD Primary Care Provide r Encounter Details Date Type Department Care Team (Late st Contact Info) Description 09/03/2022 Lab Requisition [facility] Pathology & Laboratory Medicine - [facility] [address] [place], [place] [address] Soheila Stephen, CHRISTIANO [address] [place] [address] Encounter for screening for lipoid disorders; Encounter for screening for diabetes mellitus; Disorder of thyroid, unspecified; Vitamin D deficiency, unspecified Social History Tobacco Use Types Packs/Day [...] Procedure Name Priority Date/Time Associated Diagnosis Comments HOLD SST Today 09/03/2022 10:18 EDT Encounter for screening for lipoid disorders [ICD-10-CM] Encounter for screening for diabetes mellitus [ICD-10-CM] Disorder of thyroid, unspecified [ICD-10-CM] Vitamin D deficiency, unspecified [ICD-10-CM] VITAMIN D (25,OH) Today 09/03/2022 10: 18 EDT Vitamin D deficiency, unspecified [ICD-10-CM] T3 FREE Today 09/03/2022 10:18 EDT Disorder of thyroid, unspecified [ICD-10-CM] TSH Today 09/03/2022 10:18 EDT Disorder of thyroid, unspecified [ICD-10-CM] T4 Today 09/03/2022 10:18 EDT Disorder of thyroid, unspecified [ICD-10-CM] HEMOGLOBIN A1C Today 09/03/2022 10:18 EDT Encounter for screening for diabetes mellitus [ICD-10-CM] VITAMIN B12 Today 09/03/2022 10:18 EDT Disorder of thyroid, unspecified [ICD-10-CM] LIPID PROFILE (INCLUDES CHOLESTEROL, TRIGLYCERIDES, HDL, LDL) Today 09/03/2022 10:18 EDT Encounter for screening for lipoid disorders [ICD-10-CM] documented in this encounter Results * HOLD SST (09/03/2022 10:18 EDT) Hold Hold 09/03/2022 19:01 EDT [facility] Blood VENOUS BLOOD / Unknown 09/03/2022 10:18 EDT 09/03/2022 17:48 EDT Soheila Stephen ND LAB INFO SERVICE AND SUPPORT & PHONE RESULT Final Result [facility] [address] [place] [address] * VITAMIN D (25,OH) (09/03/2022 10:18 EDT) 25OH Vitamin D Tot 33 30 - 100 ng/mL 09/04/2022 9:38 EDT [facility] Comment: Vitamin D 25,OH Interpretive Ranges: Deficiency: ??<10.0 ng/mL Insufficiency: ??10.0 - 30.0 ng/mL Sufficiency: ??30.0 - 100.0 ng/mL Toxicity: ??>100.0 ng/mL Blood VENOUS BLOOD / Unknown 09/03/2022 10:18 EDT 09/03/2022 17:48 EDT Soheila Stephen ND CHEMISTRY & BLOOD GAS ORDERABLE S Final Result Performing Organization Address [facility] Co de Phone Number [facility] [address] [place] [address] * VITAMIN B12 (09/03/2022 10:18 EDT) Vitamin B12 645 211 - 911 pg/mL 09/03/2022 20:22 EDT [facility] Blood VENOUS BLOOD / Unknown 09/03/2022 10:18 EDT 09/03/2022 17:48 EDT Soheila Stephen ND CHEMISTRY & BLOOD GAS ORDERABLE S Final Result Performing Organization Address City/[facility]/ZIP Co de Phone Number [facility] [address] [place] [address] * TSH (09/03/2022 10:18 EDT) TSH 2.82 0.47 - 4.68 mIU/L 09/03/2022 18:59 EDT [facility] Blood VENOUS BLOOD / Unknown 09/03/2022 10:18 EDT 09/03/2022 17:48 EDT Narrative [facility] - 09/03/2022 18:59 EDT The results of this assay can be falsely lowered due to the consumption of Biotin. Soheila Stephen ND CHEMISTRY & BLOOD GAS ORDERABLE S Final Result Performing Organization Address [facility]/ZIP Co de Phone Number [facility] [address] [place] [address] * T4 (09/03/2022 10:18 EDT) Pathologist [facility] T4 6.7 5.5 - 11.0 ug/dL 09/03/2022 18:48 EDT [facility] Blood VENOUS BLOOD / Unknown 09/03/2022 10:18 EDT 09/03/2022 17:48 EDT Soheila Stephen ND CHEMISTRY & BLOOD GAS ORDERABLE S Final Result Performing Organization Address [facility] Co de Phone Number [facility] [address] [place] [address] * T3 FREE (09/03/2022 10:18 EDT) Pathologist [facility] T3, Free 4.0 2.8 - 5.3 pg/mL 09/03/2022 18:46 EDT [facility] Blood VENOUS BLOOD / Unknown 09/03/2022 10:18 EDT 09/03/2022 17:48 EDT Soheila Stephen ND CHEMISTRY & BLOOD GAS ORDERABLE S Final Result Performing Organization Address [facility] Co de Phone Number [facility] [address] [place] [address] * HEMOGLOBIN A1C (09/03/2022 10:18 EDT) Pathologist [facility] Hemoglobin A1c 5.5 <5.7 % 09/03/2022 20:30 EDT [facility] Comment: Glycemic Status References: Normal: ??<5.7% Pre-Diabetes: ??5.7% - 6.4% Diagnostic of Diabetes: ??> or = 6.5% (if confirmed) Est Avg Glucose 111 mg/dL 20:30 EDT [facility] Comment:The eAG represents t he A1c result expressed as average glucose in mg/dL. Blood VENOUS BLOOD / Unknown 09/03/2022 10:18 EDT 09/03/2022 17:48 EDT us Soheila Stephen ND CHEMISTRY & BLOOD GAS ORDERABLE S Final Result [facility] [address] [place] [address] * (ABNORMAL) LIPID PROFILE (INCLUDES CHOLESTEROL, TRIGLYCERIDES, HDL, LDL) (09/03/2022 10:18 EDT) Cholesterol 253(H) <200 mg/dL 09/03/2022 18:07 [facility] Comment:Note that therapeuti c goals will differ between patients based on cardiac risk factors and current medical therapy. HDL 82 >=50 mg/dL 09/03/2022 18:07 [facility] Comment:Note that therapeuti c goals will differ between patients based on cardiac risk factors and current medical therapy. LDL, Calculated 147 <160 mg/dL 18:07 [facility] Comment:Note that therapeuti c goals will differ between patients based on cardiac risk factors and current medical therapy. Triglyceride 122 <=150 mg/dL 09/03/2022 18:07 [facility] Comment:Note that therapeuti c goals will differ between patients based on cardiac risk factors and current medical therapy. Chol/HDL Ratio 3.1 See Note 09/03/2022 18:07 [facility] Comment:No reference range h as been established for CHOL/HDL ratio. Non HDL Cholesterol 171(H) <160 mg/dL 09/03/2022 18:07 [facility] Comment:Note that therapeuti c goals will differ between patients based on cardiac risk factors and current medical therapy. Blood VENOUS BLOOD / Unknown 09/03/2022 10:18 EDT 09/03/2022 17:48 EDT us Soheila Farrell Zafar ND CHEMISTRY & BLOOD GAS ORDERABLE S Final Result [facility] [address] [place] [address] documented in this encounter Visit Diagnoses Diagnosis Encounter for screening for lipoid disorders Screening for lipoid disorders Encounter for screening for diabetes mellitus Screening for diabetes mellitus Disorder of thyroid, unspecified Vitamin D deficiency, unspecified documented in this encounter Care Teams Statement Clerks Manager Relationship Specialty Start Date End Date Kirby Alab ND [address] [place] [address] PCP - General 07/21/17 12/04/23 None, Provider PCP - General 12/05/23 01/13/24 Venancio Henriquez MD [address] [facility] [address] [place], [place] [address] PCP - General 01/14/24 documented as of this encounter
--- OUTSIDE RECORDS SUMMARY | 2024-10-13 11:38 | XMS_ITS | Encounter Summary ---
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 Limit outdoor activities to call or contact centre team leader and/or evening hours when the sunlight is [...] provide. In general, loose weaves (Cotton) and glass frame fitter-colored fabrics offer less protection than tighter weaves [...] or sensitive Recommended sun protection clothing websites www.sunprecautions.com www.coolibar.wooju www.Whitetruffle www.N[place]ona.wooju documented in this encounter Progress Notes * Cyndie Hoffman RN - 01/26/2023 1430 EDT Images from the original note were not included. WOUND ASSESSMENT CC: Chief Complaint Patient presents with ??? Wound Check Ms. 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 ?? SUBJECTIVE: Patient reports pain Scale 2, She reports that there is a know/stitch that is visible. She tried topull on it but it is painful and she really can't see it very well. There was pus like drainage that she squeezed out this morning from the area where the suture is. She has a series of bumps along her incision OBJECTIVE: LMP 11/15/2010 Wound edges: well-approximated Wound Site: pink, 4 spitting stitches and terminal hairs periwound Drainage: serous PLAN: Wound cleaned: normal saline and chlorohexidine (hibiclens, chloraprep) Dressing: vaseline applied Four spitting stitches removed Markos Jefferson MD into assess patient. He reassured her that the wound did not appear to be infected. Besides the spitting stitches there are terminal hairs gowning and this maybe what some of the bumps are. FOLLOW UP Patient advised to return to follow-up care with Dr. Euceda in 6 weeks as planned or sooner if concern Wound care instructions given to patient. Patient verbalized understanding. No barriers to learning Note: I was directly supervised by Dennis Feng MD who was in the suite and immediately available for the entire time the service was provided. 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
--- OUTSIDE RECORDS SUMMARY | 2024-10-13 11:39 | XMS_ITS | Encounter Summary ---
Author Organization [facility] Address [address] [place] [address] Care Team Providers Care Elementary Special Education Teacher Name Role Phone Unavailable Primary Care Provider Unavailabl e Encounter Details Date Type Department Care Team (Late st Contact Info) Description 05/24/2008 Before PRISM Converted Visit (Maple) [facility] - Maple conversion [address] [place] [address] Karli Almazan MD [address] [place] [id number] Social History Tobacco Use Types Packs/Day Years Used Date Smoking Tobacco: Never Assessed Comments Unknown Sex and Gender Information Value Date Recorded Sex Assigned at Not on file Legal Sex Female 18:28 EST Gender Identity Female 01/14/2024 16:04 EDT Sexual Orientation Not on file documented as of this encounter Plan of Treatment Not on file documented as of this encounter Visit Diagnoses * Evaluation - Karli Almazan MD - 07/30/2009 [address] [address] HEALTH MAINTENANCE EXAMINATION - 05/24/2008 PRESENTING: This is a 47-year-old woman, here for physical exam. CURRENT ISSUES To be discussed under review of systems. REVIEW OF SYSTEMS HEENT: She has headaches, which have been helped with acupuncture. When she has a headache, she will occasionally have some nausea. She had some vision changes, bought glasses, but that did not help with the headaches. She very much prefers to avoid medications so does not take any medications whenshe has the headaches. Respiratory: Negative. Cardiovascular: Rare palpitations. GI: The nausea as d iscussed. : She has no libido. She has been taking ground thyroid without any active thyroid hormone. She thinks it has helped with energy, not clear that it has helped with the libido. Skin: Negative. Musculoskeletal: Multiple aches in her back and neck and her limbs with some numbness in her hands, primarily at night, although occasionally will havewhen she is lying down or leaning on her arms in certain ways. Details of these complaints have been outlined in our note from the winter, and they have not changed significantly. Constitutional: Has continued to have some mild weight gain despite beingvery physically active and trying to minimize her portions. She has a healthy diet. Sleep is variable. PAST MEDICAL HISTORY/PAST SURGICAL HISTORY In front of the chart. MEDICATIONS Not taking any regular western medications. She takes a large variety of supplements. ALLERGIES Penicillin and codeine as well as multiple other drug intolerances. FAMILY HISTORY Mom had a prolapsed uterus. Dad had von Willebrands disease and brain hematomas in the context of taking lots of fish oil supplements. SOCIAL HISTORY Lives with her and her 16-year-old son. They also have a 21-year-old son who has an apartment in [place] but lives with them some during the summer. 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 She does not smoke tobacco. She smoked briefly in her early teens. She is very physically active. They own some land, about 200 acres, and they have a lot of gardens, which she tends to and spends a lot of time outside doing. She drinks no alcohol. PHYSICAL EXAM Blood pressure 100/70, heart rate of 70, temp of 98.2. Weight of 152. Generally, she is pleasant, conversational, appears well and comfortable. HEENT: Oropharynx clear. No cervical or supraclavicularlymphadenopathy. No thyromegaly or thyroid nodules. Lungs are clear to auscultation bilaterally. Cardiovascular: Regular rate and rhythm. No murmurs, rubs, or gallops. Breasts: No focal masses, nipple discharge, or axillary lymphadenopathy. Abdomen is soft, nontender, nondistended. No hepatosplenomegaly. No masses. Pelvic: External pelvic exam was without any groin lymphadenopathy. There are no vulvar lesions. Bimanual exam without any fullness or tenderness. Lower extremities: No lower extremity edema. DPs and PTs 2+ bilaterally.Skin: No concerning nevi and no rashes. ASSESSMENT AND PLAN 1. Musculoskeletal complaints and fatigue. She continues to seek alternative therapies, has found acupuncture to be helpful but unfortunately not covered by insurance and so expensive for her. She has been seeing an osteopath, Dr. Tejada, which she finds helpful. Apparently there is some blood workplanned for her through him. She is interested in exploring a chiropractor and will let me know if she has the name of someone that she would really like to try. 2. General health maintenance. Pap smear was done today. Cholesterol checked a couple of years ago,which was in an excellent range. We also did a wide panel of blood tests when I saw her last. She does not get mammograms. On occasion she has gotten bilateral breast ultrasounds, but is not interested in doing any breast screening at this time. Signed by Karli Almazan MD 06/01/2008 09:12 Karli Almazan MD - Karli Almazan MD - MEGHANA Job ID: [id number] Doc ID: [id number] cc: cc: documented in this encounter
--- OUTSIDE RECORDS SUMMARY | 2024-10-13 11:39 | XMS_ITS | Encounter Summary ---
Author Organization [facility] Address [address] [place] [address] Care Team Providers Care Land Measurer Name Role Phone Cesar Bae MD Primary Care Provider [phone] Encounter Details Date Type Department Care Team (Late st Contact Info) Description 08/24/2015 Phlebotomy Only [facility] [address] [place] [address] Track Fitter, Outpatient Social History Tobacco Use Types Packs/Day [...] on filedocumented in this encounter Care Teams Land Measurer Relationship Specialty Start Date End Date Cesar Bae MD [address] [place] [id number] PCP - General 02/15/13 07/20/17 documented as of this encounter
--- OUTSIDE RECORDS SUMMARY | 2024-10-13 11:39 | XMS_ITS | Encounter Summary ---
Author Organization [facility] Address [address] [place] [address] Care Team Providers Care Gang Supervisor Name Role Phone Cesar Bae MD Primary Care Provider Reason for Visit * Reason Onset Date Comments Foreign Body in Skin 03/09/2013 Encounter Details Date Type Department Care Team (Late st Contact Info) Description 03/09/2013 Telephone [facility] Adult Primary [facility] - [place] [address] [place], [place] [id number] Cesar Bae MD [address] [place] [address] Foreign Body in Skin Social History Tobacco Use Types Packs/Day Years Used Date Smoking Tobacco: Never Smokeless Tobacco: Never Comments:smoked when she was 12 years old and stopped at the age of 14 Alcohol Use Standard Drinks/Week Comments No 0 (1 standard drink = 0.6 oz pur e alcohol) Comments No Sex and Gender Information Value Date Recorded Sex Assigned at Not on file Legal Sex Female 18:28 EST Gender Identity Female 01/14/2024 16:04 EDT Sexual Orientation Not on file documented as of this encounter Miscellaneous Notes * Telephone Encounter - Julianne Baron RN - 03/09/2013 0823 EDT Jessica had a piece of wood nichols her Leg and it was a deep splinter. 1. Was hoping it would come out in one piece but did not 2. Now is red and very sore 3. Warm to the touch 4. She has cleansed it with soap and water and does think she may see a small piece of wood left. 5. Will see Isamar GARZA and is aware if this is not something that can be done here she may have togo tot he WIC To have them remove the rest of the splinter * Telephone Encounter - Myesha Alvarez - 03/09/2013 0812 EDT States she has a piece of wood deep in her leg and can't get it out, beginning to get infected, please advise, thanks. (left this message on our line) documented in this encounter Plan of Treatment Not on file documented as of this encounter Visit Diagnoses Not on filedocumented in this encounter Care Teams Gang Supervisor Relationship Specialty Start Date End Date Cesar Bae MD [address] [place] [address] PCP - General 02/15/13 07/20/17 documented as of this encounter
--- OUTSIDE RECORDS SUMMARY | 2024-10-13 11:39 | XMS_ITS | Encounter Summary ---
Author Organization [facility] Address [address] [place] [address] Care Team Providers Care Automotive Metalsmith Name Role Phone Karli Almazan MD Primary Care Provid er Encounter Details Date Type Department Care Team (Late st Contact Info) Description 09/22/2011 Abstract Used for ABSTRACTING Data [phone] Karli Almazan MD [address] [place], [place] [id number] Social History Tobacco Use Types Packs/Day Years [...] on filedocumented in this encounter Care Teams Automotive Metalsmith Relationship Specialty Start Date End Date Karli Almazan MD [address] [place], [place] [address] PCP - General 01/29/10 02/14/13 documented as of this encounter
--- OUTSIDE RECORDS SUMMARY | 2024-10-13 11:39 | XMS_ITS | Encounter Summary ---
Author Organization [facility] Address [address] [place] [address] Care Team Providers Care Purchase Price Analyst Name Role Phone Karli Almazan MD Primary Care Provid er Encounter Details Date Type Department Care Team (Late st Contact Info) Description 04/12/2012 Results Only [facility] Laboratory Services - [facility] ([facility] [address] [place] [address] Giacomo Hall, [place] [address] [place] [address] Social History Tobacco Use Types Packs/Day Years [...] Procedure Name Priority Date/Time Associated Diagnosis Comments URINE [id number] NE RATIO (ACR) Routine 04/12/2012 9:05 EDT documented in this encounter Results * ALBUMIN, URINE (04/12/2012 9:05 EDT) Creatinine, Urn [place] 62.2 mg/dl [facility] Ur Albumin mg/dl <0.2 <1.9 mg/dl [facility] Ur Alb ug/mg Crea Unable to calculate ug/mg Crea result. ug/mg Crea [facility] Comment: Normal: <30 ug/mg creat High: 30-300 ug/mg creat Very high and nephrotic: >300 ug/mg creat 04/12/2012 9:05 EDT 04/12/2012 20:18 EDT us Giacomo Hall ND CHEMISTRY & BLOOD GAS ORDERABLES Final Result [facility] [address] [place] [phone] documented in this encounter Visit Diagnoses Not on filedocumented in this encounter Care Teams Purchase Price Analyst Relationship Specialty Start Date End Date Karli Almazan MD [address] [place], [place] [id number] PCP - General 01/29/10 02/14/13 documented as of this encounter
--- OUTSIDE RECORDS SUMMARY | 2024-10-13 11:39 | XMS_ITS | Encounter Summary ---
Author Organization [facility] Address [address] [place] [address] Care Team Providers Care Standpipe Tender Name Role Phone Karli Almazan MD Primary Care Provid er Reason for Referral * Consult (Routine/Next Available) - Closed Specialty Diagnoses / Procedures Referred By Abby de paz Referred To Contact Diagnoses Headache(784.0) Karli Almazan MD Phone: tel: fax: Referral ID Status Reason Start Date Expiration Date V isits Requested Visits Authorized [id number] Closed Specialty Services Required 03/30/2012 1 1 Question Answer Reason for Request: Dr. Higgins, quality process engineer,[facility]. Patient would like to see him for headaches Comments The purpose of this consult request is to inform the scheduling staff that a consult needs to be scheduled outside of [facility] for services that are not offered here. Reason for Visit * Reason Onset Date Comments Referral Request 03/30/2012 quality process engineer Encounter Details Date Type Department Care Team (Late st Contact Info) Description 03/30/2012 Telephone [facility] Adult Primary [facility] - [place] [address] [place] [address] Karli Almazan MD [address] [place], [place] [id number] Referral Request (quality process engineer) Social History Tobacco Use Types Packs/Day Years [...] encounter Miscellaneous Notes * Telephone Encounter - Luis Murrieta III - 03/30/2012 1137 EDT Patient aware. * Telephone Encounter - Karli Almazan MD - 03/30/2012 1017 EDT Referral done. Thanks, AC * Telephone Encounter - Myesha Alvarez - 03/30/2012 0956 EDT Asking for a referral to a quality process engineer, arya Steele in [facility] (states this has been discussedin the past) for headaches, arm numbness. Please call when sent, dominique. documented in this encounter Plan of Treatment Scheduled Referrals Name Type Priority Associated Diagnoses Orde r Schedule AMB CONSULT FOR EXTERNAL SERVICES Outpatient Referral Routine Headache Ordered: 03/30/2012 documented as of this encounter Visit Diagnoses Diagnosis Headache(784.0)- Primary Headache documented in this encounter Care Teams Standpipe Tender Relationship Specialty Start Date End Date Karli Almazan MD [address] [place] [id number] PCP - General 01/29/10 02/14/13 documented as of this encounter
--- OUTSIDE RECORDS SUMMARY | 2024-10-13 11:39 | XMS_ITS | Encounter Summary ---
Author Organization [facility] Address [address] [place] [address] Care Team Providers Care Stamp Collector Name Role Phone Cesar Bae MD Primary Care Provider [phone] Reason for Referral * Consult (Routine/Next Available) - Closed Specialty Diagnoses / Procedures Referred By Abby de paz Referred To Contact Orthopedic Surgery Diagnoses Carpal tunnel syndrome Radha Moe APRN [facility] - [place] [address] [place] [address] Phone: tel: fax: Referral ID Status Reason Start Date Expiration Date V isits Requested Visits Authorized [id number] Closed Specialty Services Required 08/23/2014 1 0 Question Answer Reason for Request: Carpal tunnel syndrome by EMG Reason for Visit * Reason Onset Date Comments Results 08/23/2014 Encounter Details Date Type Department Care Team (Late st Contact Info) Description 08/23/2014 Telephone [facility] Adult Primary Care - [place] [address] [place] [address] Radha Moe APRN Results Social History Tobacco Use Types Packs/Day Years [...] Telephone Encounter - Julianne Baron RN - 08/23/2014 0848 EDT Reviewed EMG results with Jessica per Wiley Moe ANP message. Jessica will go to see the ortho for her carpal tunnel syndrome Verbalized without barriers understanding of information given * Telephone Encounter - Radha Moe ANP - 08/23/2014 0742 EDT EMG indicates carpal tunnel syndrome so I have put in a referral to hand orthopedics for consultation documented in this encounter Plan of Treatment Scheduled Referrals Name Type Priority Associated Diagnoses Order Schedule AMB CONS/FOLLOW UP ORTHOPEDICS Outpatient Referral Routine Carpal tunnel syndrome Ordered: 08/23/2014 documented as of this encounter Visit Diagnoses Diagnosis Carpal tunnel syndrome- Primary documented in this encounter Care Teams Stamp Collector Relationship Specialty Start Date End Date Cesar Bae MD [address] [place] [phone] PCP - General 02/15/13 07/20/17 documented as of this encounter
--- OUTSIDE RECORDS SUMMARY | 2024-10-13 11:39 | XMS_ITS | Encounter Summary ---
Author Organization [facility] Address [address] [place] [address] Care Team Providers Care Egg Gatherer Name Role Phone Cesar Bae MD Primary Care Provider Encounter Details Date Type Department Care Team (Late st Contact Info) Description 09/15/2013 8:50 EST - 09/15/2013 23:59 EST Hospital Encounter [address] [address] Unknown, Provider, Kirby Saunders, [facility] [place], [place] [address] Discharge Disposition: Auto Discharge Social History Tobacco [...] as of this encounter Discharge Diagnoses Diagnosis 719.49 JOINT PAIN-MULT JTS[ICD-9-CM] 269.2 VITAMIN DEFICIENCY NOS[ICD-9-CM] 782.0 SKIN SENSATION DISTURB[ICD-9-CM] V77.0 SCREENING-THYROID DISORDER[ICD-9-CM] 784.0 HEADACHE[ICD-9-CM] 780.52 INSOMNIA, UNSPECIFIED[ICD-9-CM] documented in this encounter Medications at Time [...] ORAL) Take by mouth. 4 times weekly MINERALS ORAL Take by mouth. 01 4 documented as of this encounter Discharge Disposition Disposition Code Departure Means Destination Auto Discharge Home documented in this encounter Plan of Treatment Pending Results Name Type Priority Associated Diagnoses Date /Time HEMAGRAM AND DIFFERENTIAL Lab Routine 09/15/2013 9:17 EST Scheduled Orders Name Type Priority Associated Diagnoses Orde r Schedule HEMAGRAM AND DIFFERENTIAL Lab Routine One Time for 1 Occurrences starting 09/15/2013 until 09/15/2013 documented as of this encounter Procedures Procedure Name Priority Date/Time Associated Diagnosis Comments TRANSFERRIN SATURATION Routine 3 9:17 EST THYROPEROXIDASE ANTIBODY Routine 09/15/2013 9:17 EST VITAMIN D (25,[place]) Routine 09/15/2013 9:1 7 EST DIFFERENTIAL Routine 09/15/2013 9:17 EST ANTI THYROGLOBULIN Routine 09/15/2013 9: 17 EST COMPLETE BLOOD COUNT Routine 09/15/2013 9:17 EST T3 FREE Routine 09/15/2013 9:17 EST TSH Routine 09/15/2013 9:17 EST T4 Routine 09/15/2013 9:17 EST HOMOCYSTEINE Routine 09/15/2013 9:17 EST HEMOGLOBIN A1C Routine 09/15/2013 9:17 EST FOLATE Routine 09/15/2013 9:17 EST FERRITIN Routine 09/15/2013 9:17 EST VITAMIN B12 Routine 09/15/2013 9:17 EST LIPID PROFILE (INCLUDES CHOLESTEROL, TRIGLYCERIDES, HDL, LDL) Routine 09/15/2013 9:17 EST COMPREHENSIVE METABOLIC PANEL (CMP) Routine 09/15/2013 9:17 EST documented in this encounter Results * (ABNORMAL) DIFFERENTIAL (09/15/2013 9:17 EST) % Neutrophils 44.0(L) 45.5 - 79.7 % [facility] % Lymphocytes 44.5 15.0 - 46.8 % [facility] % Monocytes 6.8 1.8 - 12.0 % [facility] % Eosinophils 3.8 0.6 - 6.9 % [facility] % Basophils 0.9 0.2 - 1.4 % [facility] ABS Neutrophils 2.12(L) 2.20 - 8.85 K/cmm [facility] ABS Lymphs 2.15 1.09 - 3.30 K/cmm [facility] ABS Monocytes 0.33 0.1 - 0.8 K/cmm [facility] ABS Eosinophils 0.18 0.03 - 0.61 K/cmm [facility] ABS Basophils 0.05 0.01 - 0.11 K/cmm [facility] Type of Diff: Automated [facility] 09/15/2013 9:17 EST 09/15/2013 10:41 EST us Kirby Alba ND HEMATOLOGY & PF4 ORDERABLES F inal Result [facility] [address] [place] [address] * HEMAGRAM (09/15/2013 9:17 EST) Pathologist [facility] WBC 4.82 4.0 - 12.4 K/cmm [facility] RBC 4.31 3.86 - 5.04 M/cmm [facility] Hemoglobin 13.0 11.6 - 15.2 gm/dl [facility] HCT 39.4 34.9 - 44.4 % [facility] MCV 91 81 - 98 fl [facility] MCH 30.2 26.7 - 33.3 pg [facility] MCHC 33.0 32.1 - 35.9 gm/dl [facility] PLT 223 141 - 320 K/cmm [facility] RDW-CV 13.1 11.7 - 14.6 % [facility] 09/15/2013 9:17 EST 09/15/2013 10:41 EST Kirby Alba ND HEMATOLOGY & PF4 ORDERABLES F inal Result Performing Organization Address City/[facility] Co de Phone Number [facility] [address] [place] [address] * VITAMIN D (25,[place]) (09/15/2013 9:17 EST) Pathologist [facility] 25OH Vitamin D Tot 29.5 ng/ml [facility] Comment: Reference Range: Deficient = <10 ng/ml Insufficient = 10-30 ng/ml Sufficient = 30-100 ng/ml Toxic = >100 ng/ml 09/15/2013 9:17 EST 09/15/2013 10:41 EST Kirby Alba ND CHEMISTRY & BLOOD GAS ORDERAB LES Final Result Performing Organization Address [facility] Co de Phone Number [facility] [address] [place] [address] * TSH (09/15/2013 9:17 EST) Pathologist [facility] TSH 2.04 0.35 - 5.00 uIU/ml [facility] 09/15/2013 9:17 EST 09/15/2013 10:41 EST Kirby Parth ND CHEMISTRY & BLOOD GAS ORDERAB LES Final Result Performing Organization Address City/[facility]/ZIP Co de Phone Number [facility] [address] [place] [address] * TRANSFERRIN SATURATION (09/15/2013 9:17 EST) Iron 131 60 - 180 ug/dl [facility] TIBC 307 265 - 497 ug/dl [facility] Iron Saturation 43 20 - 55 % BURTKyler MARIA DEL ROSARIO [facility] 09/15/2013 9:17 EST 09/15/2013 10:41 EST [facility] CHEMISTRY & BLOOD GAS ORDERAB LES Final Result Performing Organization Address [facility] Co de Phone Number [facility] [address] [place] [address] * THYROPEROXIDASE ANTIBODY (09/15/2013 9:17 EST) Thyroperoxidase Ab 44 <61 U/mL [facility] 09/15/2013 9:17 EST 09/15/2013 10:41 EST [facility] CHEMISTRY & BLOOD GAS ORDERAB LES Final Result Performing Organization Address [facility] Co de Phone Number [facility] [address] [place] [address] * T4 (09/15/2013 9:17 EST) T4, Total 6.9 4.5 - 10.9 ug/dL [facility] 09/15/2013 9:17 EST 09/15/2013 10:41 EST [facility] CHEMISTRY & BLOOD GAS ORDERAB LES Final Result Performing Organization Address City/[facility]/ZIP Co de Phone Number [facility] [address] [place] [address] * LIPID PROFILE (INCLUDES CHOLESTEROL, TRIGLYCERIDES, HDL, LDL) (09/15/2013 9:17 EST) [facility] Cholesterol 250 mg/dl [facility] Comment: Desirable:<200 Borderline High:200-239 High:>db=459 Triglycerides 92 mg/dl A[facility] Comment: Normal:<150 Borderline High:150-199 High:200-499 Very High:>uy=972 HDL 73 mg/dl [facility] Comment: Low:<40 Normal:40-60 Desirable: >60 LDL, Calculated 159 mg/dl [facility] Comment: Optimal:<100 Near Optimal:100-129 Borderline High:130-159 High:160-189 Very High:>bi=152 Chol/HDL Ratio 3.4 [facility] Fasting? YES [facility] Non HDL Cholesterol 177 mg/dl [facility] Comment: Desirable:<130 Borderline:130-159 High: 160-189 Very High: >ux=947 09/15/2013 9:17 EST 09/15/2013 10:41 EST [facility] CHEMISTRY & BLOOD GAS ORDERAB LES Final Result Performing Organization Address City/[facility] de Phone Number [facility] [address] [place] [address] * HOMOCYSTEINE (09/15/2013 9:17 EST) [facility] Homocysteine 10.4 4.5 - 12.4 umol/L [facility] Comment: Reference range may not apply to non-fasting samples. It is not recommended that EDTA and serum from the same patient be used interchangeably. Serum concentrations have been observed to be up to 10% higher than EDTA plasma. ??Reference range may not apply to serum results. 09/15/2013 9:17 EST 09/15/2013 10:41 EST [facility] CHEMISTRY & BLOOD GAS ORDERAB LES Final Result Performing Organization Address [facility] Co de Phone Number [facility] [address] [place] [address] * HEMOGLOBIN A1C (09/15/2013 9:17 EST) [facility] Hemoglobin A1C 5.7 % [facility] Comment: Reference Range: <5.7% Normal 5.7-6.4% Increased risk for diabetes =>6.5% Diagnostic for diabetes (if confirmed) The A1c goal for non adults in general is <7%. The A1c goal for selected patients may be significantly lower than 7% if this can be achieved without significant hypoglycemia or other adverse effects of treatment. Est Avg Glucose 117 mg/dl [facility] Comment: eAG represents the A1c result expressed as average glucose in mg/dl. 09/15/2013 9:17 EST 09/15/2013 10:41 EST Kirby Alba ND CHEMISTRY & BLOOD GAS ORDERAB LES Final Result Performing Organization Address [facility] Co de Phone Number [facility] [address] [place] [address] * T3 FREE (09/15/2013 9:17 EST) T3, Free 2.8 2.3 - 4.2 pg/mL [facility] 09/15/2013 9:17 EST 09/15/2013 10:41 EST Kirby Alba [place] CHEMISTRY & BLOOD GAS ORDERAB LES Final Result Performing Organization Address [facility] Phone Number [facility] [address] [place] [address] * FOLATE (09/15/2013 9:17 EST) Folate 11.9 ng/mL [facility] Comment: Deficient: ??Less than 3.4 ng/mL Indeterminate: ??3.4-5.4 ng/mL Normal: ??Greater than 5.4 ng/mL 09/15/2013 9:17 EST 09/15/2013 10:41 EST Kirby Alba [place] CHEMISTRY & BLOOD GAS ORDERAB LES Final Result Performing Organization Address [facility] Co de Phone Number [facility] [address] [place] [address] * FERRITIN (09/15/2013 9:17 EST) Ferritin 33 10 - 291 ng/mL [facility] 09/15/2013 9:17 EST 09/15/2013 10:41 EST Kirby Alba [place] CHEMISTRY & BLOOD GAS ORDERAB LES Final Result Performing Organization Address City/[facility]/ZIP Co de Phone Number [facility] [address] [place] [address] * COMPREHENSIVE METABOLIC PANEL (CMP) (09/15/2013 9:17 EST) Potassium 4.3 3.5 - 5.0 mEq/L [facility] Sodium 141 136 - 145 mEq/L [facility] Chloride 104 96 - 110 mEq/L [facility] CO2 27 24 - 32 mEq/L [facility] Total Alkaline Phosphatase 83 38 - 126 U/L [facility] Bilirubin, Total 0.6 0.2 - 1.3 mg/dl [facility] AST 16 15 - 46 U/L [facility] ALT 26 9 - 52 U/L [facility] Albumin 4.2 3.4 - 4.9 g/dl [facility] Total Protein 6.7 6.5 - 8.3 g/dl [facility] Creatinine 0.74 0.52 - 1.04 mg/dl [facility] GFR, Calculated >60 >60 ml/min/1.7 3m2 [facility] BUN 13 10 - 26 mg/dl [facility] Calcium 8.7 8.5 - 10.5 mg/dl [facility] Calculated Calcium 8.9 8.5 - 10.5 mg/dl [facility] Glucose, Serum 78 70 - 100 mg/dl [facility] Fasting? YES [facility] 09/15/2013 9:17 EST 09/15/2013 10:41 EST Kirby Alba [place] CHEMISTRY & BLOOD GAS ORDERAB LES Final Result Performing Organization Address City/[facility]/ZIP Co de Phone Number [facility] [address] [place] [address] * VITAMIN B12 (09/15/2013 9:17 EST) Vitamin B-12 495 211 - 911 pg/ml [facility] 09/15/2013 9:17 EST 09/15/2013 10:41 EST [facility] CHEMISTRY & BLOOD GAS ORDERAB LES Final Result Performing Organization Address [facility] de Phone Number [facility] [address] [place] [address] * ANTI THYROGLOBULIN (09/15/2013 9:17 EST) Thyroglobulin Ab <15 <61 U/mL [facility] 09/15/2013 9:17 EST 09/15/2013 10:41 EST Kirby Alba [place] CHEMISTRY & BLOOD GAS ORDERAB LES Final Result Performing Organization Address [facility] de Phone Number [facility] [address] [address] documented in this encounter Visit Diagnoses Not on filedocumented in this encounter Care Teams Egg Gatherer Relationship Specialty Start Date End Date Cesar Bae MD [address] [place] [phone] PCP - General 02/15/13 07/20/17 documented as of this encounter
--- OUTSIDE RECORDS SUMMARY | 2024-10-13 11:39 | XMS_ITS | Encounter Summary ---
Author Organization [facility] Address [address] [place] [address] Care Team Providers Care Microgrinder Operator Name Role Phone Cesar Bae MD Primary Care Provider [phone] Reason for Referral * Consult (Routine) - Closed Specialty Diagnoses / Procedures Referred By Abby de paz Referred To Contact Diagnoses Neck pain Thoracic back pain Radha Moe APRN Referral ID Status Reason Start Date Expiration Date V isits Requested Visits Authorized [id number] Closed Specialty Services Required 08/01/2014 1 1 Question Answer Reason for Request: neck pain and migraines, joint pain Scheduling Comments (optional ? describe specific scheduling needs if applicable): has appt SITE Jonas Cervantes Comments The purpose of this consult request is to inform the scheduling staff that a consult needs to be scheduled outside of [facility] for services that are not offered here. Reason for Visit * Reason Comments Neck Pain Strated Thursday Back Pain Two wks ago Encounter Details Date Type Department Care Team (Late st Contact Info) Description 08/01/2014 10:30 EDT Office Visit [facility] - [address] [place] [address] Radha Moe APRN Thoracic back pain (Primary Dx); Neck pain; Arm numbness Social History Tobacco Use Types Packs/Day Years [...] Sign Reading Time Taken Comments Blood Pressure 116/80 08/01/2014 1039 EDT Pulse 60 08/01/2014 1039 EDT Temperature 35.8 ??C (96.4 ??F) 08/01/2014 1039 EDT Respiratory Rate 16 08/01/2014 1039 EDT Oxygen Saturation - - Inhaled Oxygen Concentration - - Weight - - Height - - Body Mass Index - - documented in this encounter Discharge Diagnoses Diagnosis 724.1 PAIN IN THORACIC SPINE[ICD-9-CM] 723.1 CERVICALGIA[ICD-9-CM] 782.0 SKIN SENSATION DISTURB[ICD-9-CM] documented in this encounter Progress Notes * Radha Moe ANP - 08/01/2014 1110 EDT Subjective: Patient ID: Jessica Connelly is an 54 y.o. female. Chief Complaint Patient presents with ??? Neck Pain Strated Thursday ??? Back Pain Two wks ago HPI 1. Neck awin-qvkxq-hhgm history of neck problems after a fall as a young adult. She sees a chiropractor and a interventional physiatrist, uses supplements but no anti- inflammatories for treatment. She has been having a flare of neck tightness this week, and has intermittent numbness in her arms right worse than left that was ongoing prior to worsening of her neck. Relates to worsening to some gardening and fiddle playing over the weekend. Neck pain does contribute to headaches. X- ray in 2011 revealed severe degenerative changes C5-6 2. Thoracic back pain in the mid thorax has pain and feels that she has to readjust her back several times a day to get it in place, with radiation around the thorax and backs of her arms Patient Active Problem List Diagnosis ??? Migraine ??? Systolic murmur ??? Chronic fatigue syndrome ??? Actinic keratosis ??? Benign neoplasm of skin, site unspecified Past Medical History Diagnosis Date ??? Candidiasis per patient, logan sensitivity ??? Pneumonia ??? Appendicitis ??? Arthritis ??? Heart murmur Current Outpatient Prescriptions on File Prior to Visit Medication Sig Dispense Refill ??? EPINEPHrine (EPIPEN) 0.3 mg/0.3 mL injection Inject 0.3 mL into the muscle once as needed for 1dose. 2 Syringe 6 ??? MULTIVITAMINS (MULTIVITAMIN ORAL) Take by mouth daily. Vit, A,D,B,C,K ??? OMEGA-3 FATTY ACIDS (OMEGA-3 ORAL) Take by mouth daily. ??? SELENIUM ORAL Take by mouth daily. ??? UNABLE TO FIND daily. Med Name: Pantethine, Serrapeptase ??? VITAMIN B COMPLEX (VIT BALANCED B-100 ORAL) Take by mouth. 4 times weekly No current facility-administered medications on file prior to visit. Allergies Allergen Reactions ??? Codeine Nausea Only ??? Other - See Comments Antibiotics trigger systemic logan per patient. Avoids. ??? Penicillins Hives Social History Substance Use Topics ??? Smoking status: Former Smoker -- 2 years Types: Cigarettes ??? Smokeless tobacco: Never Used Comment: smoked when she was 12 years old and stopped at the age of 14 ??? Alcohol Use: 1.2 oz/week 2 Glasses of wine per week ROS - See HPI Objective: BP 116/80 Pulse 60 Temp(Src) 35.8 ??C (96.4 ??F) (Tympanic) Resp 16 LMP 11/15/2010 Physical Exam Cervical range of motion - pain with right lateral rotation to 30??, none with left lateral rotation, pain and in point of flexion and extension Mild point tenderness over the cervical spinous processes DTRs hard to elicit triceps bilaterally 2+ biceps right side, 1+ left Normal muscle strength and hand grasp Mild tenderness in the upper trapezius worse on left than right Assessment: Encounter Diagnoses Name Primary? Thoracic back pain Yes ??? Neck pain ??? Arm numbness Plan: Thoracic back pain Neck pain- long-standing musculoskeletal issues of the neck and thoracic spine, with history of severe degenerative changes on x-ray couple of years ago, we will determine if any nerve impingement/disc herniation - MR SPINE-CERVICAL AND CONTENTS - Amb Consult/Follow Up External Services Arm numbness- to determine where nerve impingement may be causing the numbness will obtain EMG - EMG Needle Exam; Future Return if symptoms worsen or fail to improve. documented in this encounter Plan of Treatment Scheduled Referrals Name Type Priority Associated Diagnoses Orde r Schedule AMB CONS/FOLLOW UP EXTERNAL SERVICES Outpatient Referral Routine Neck pain Thoracic back pain Ordered: 08/01/2014 documented as of this encounter Procedures Procedure Name Priority Date/Time Associated Diagnosis Comments MR C,T SPINE WO CONTRAST 08/27/2014 9:45 EDT documented in this encounter Results * MR C,T SPINE WO CONTRAST (08/27/2014 9:45 EDT) Anatomical Region Laterality Modality Other 08/27/2014 9:45 EDT 08/27/2014 14:18 EDT Narrative 08/27/2014 14:18 EDT MRI CERVICAL SPINE WITHOUT CONTRAST MRI THORACIC SPINE ??WITHOUT CONTRAST August 27, 2014 Indication: Neck pain for months. Radiates to arms. Tingling right greater than left. Mid thoracic spine pain with radiation to the thorax. Comparison: Cervical spine films April 12, 2012. C-SPINE: Technique: Sagittal T1 and T2, axial T2 and sagittal oblique T2-weighted MR images of the cervical spine were obtained. Findings: Craniocervical and atlantoaxial alignment appear anatomic on the sagittal images. There is reversal of the normal cervical lordosis with mild retrolisthesis of C5 on C6. Vertebral body heights are preserved. Marrow signal intensity is unremarkable. There is mild disc space narrowing at C4-C5 and moderate disc space narrowing with anterior marginal osteophyte formation and uncovertebral spurring at C5-C6 consistent with degenerative disc disease. Height loss has progressed at the C4-C5 level in comparison to the previous plain films from 2011. There is mild multilevel facet degeneration demonstrated. C2-C3: No disc herniation or spinal stenosis is noted. C3-C4: There is minimal right neural foraminal narrowing due to uncinate spurring. C4-C5: There is a shallow broad-based disc herniation present with minimal mass effect on the ventral thecal sac and no cord impingement. C5-C6: Posterior disc osteophyte complex produces mild mass effect on the ventral thecal sac without cord impingement. There is moderate right neural foraminal stenosis due to uncinate spurring and slight facet hypertrophy. Mild left neural foraminal stenosis is noted due to uncinate spurring. C6-C7: There is a tiny right paracentral disc herniation with minimal mass effect on the ventral thecal sac and no cord impingement. C7-T1: No disc herniation or spinal stenosis is noted. The cervical cord is normal in caliber and signal. Impression: 1. Cervical degenerative disc and degenerative joint disease. 2. Mild degenerative spondylolisthesis at C5-C6. 3. Central disc herniation at C4-C5 and right paracentral disc herniation at C6-C7 without associated cord impingement. 4. Posterior disc osteophyte complex with mild central spinal stenosis but no cord impingement at C5-C6. 5. Multilevel neural foraminal narrowing due to uncovertebral spurring and facet hypertrophy as described by level above. T-SPINE: Technique: Sagittal T1, T2 and STIR and axial T1 and T2-weighted MR images of the thoracic spine were obtained. Findings: AP alignment of the thoracic spine is anatomic. Vertebral body heights are preserved. Apart from scattered osseous hemangiomata, marrow signal intensity is unremarkable. Disc space heights are well-maintained. No focal disc herniation, central spinal or neural foraminal stenosis is noted. The thoracic cord is normal in caliber and signal. Impression: Unremarkable noncontrast thoracic spine MRI. Procedure Note 08/27/2014 MRI CERVICAL SPINE WITHOUT CONTRAST MRI THORACIC SPINE WITHOUT CONTRAST August 27, 2014 Indication: Neck pain for months. Radiates to arms. Tingling right greater than left. Mid thoracic spine pain with radiation to the thorax. Comparison: Cervical spine films April 12, 2012. C-SPINE: Technique: Sagittal T1 and T2, axial T2 and sagittal oblique T2-weighted MR images of the cervical spine were obtained. Findings: Craniocervical and atlantoaxial alignment appear anatomic on the sagittal images. There is reversal of the normal cervical lordosis with mild retrolisthesis of C5 on C6. Vertebral body heights are preserved. Marrow signal intensity is unremarkable. There is mild disc space narrowing at C4-C5 and moderate disc space narrowing with anterior marginal osteophyte formation and uncovertebral spurring at C5-C6 consistent with degenerative disc disease. Height loss has progressed at the C4-C5 level in comparison to the previous plain films from 2012. There is mild multilevel facet degeneration demonstrated. C2-C3: No disc herniation or spinal stenosis is noted. C3-C4: There is minimal right neural foraminal narrowing due to uncinate spurring. C4-C5: There is a shallow broad-based disc herniation present with minimal mass effect on the ventral thecal sac and no cord impingement. C5-C6: Posterior disc osteophyte complex produces mild mass effect on the ventral thecal sac without cord impingement. There is moderate right neural foraminal stenosis due to uncinate spurring and slight facet hypertrophy. Mild left neural foraminal stenosis is noted due to uncinate spurring. C6-C7: There is a tiny right paracentral disc herniation with minimal mass effect on the ventral thecal sac and no cord impingement. C7-T1: No disc herniation or spinal stenosis is noted. The cervical cord is normal in caliber and signal. Impression: 1. Cervical degenerative disc and degenerative joint disease. 2. Mild degenerative spondylolisthesis at C5-C6. 3. Central disc herniation at C4-C5 and right paracentral disc herniation at C6-C7 without associated cord impingement. 4. Posterior disc osteophyte complex with mild central spinal stenosis but no cord impingement at C5-C6. 5. Multilevel neural foraminal narrowing due to uncovertebral spurring and facet hypertrophy as described by level above. T-SPINE: Technique: Sagittal T1, T2 and STIR and axial T1 and T2-weighted MR images of the thoracic spine were obtained. Findings: AP alignment of the thoracic spine is anatomic. Vertebral body heights are preserved. Apart from scattered osseous hemangiomata, marrow signal intensity is unremarkable. Disc space heights are well-maintained. No focal disc herniation, central spinal or neural foraminal stenosis is noted. The thoracic cord is normal in caliber and signal. Impression: Unremarkable noncontrast thoracic spine MRI. Radha Moe PHYSICAL THERAPY RESIDENT IMG MRI ORDERABLES Final Re sult documented in this encounter Visit Diagnoses Diagnosis Thoracic back pain- Primary Pain in thoracic spine Neck pain Cervicalgia Arm numbness Disturbance of skin sensation documented in this encounter Discontinued Medications Medication Sig Discontinue Reason Start Date End Da te MINERALS ORAL Take by mouth. Patient Stopped Taking 4 documented as of this encounter Care Teams Microgrinder Operator Relationship Specialty Start Date End Date Cesar Bae MD [address] [place] [address] PCP - General 02/15/13 07/20/17 documented as of this encounter
--- OUTSIDE RECORDS SUMMARY | 2024-10-13 11:39 | XMS_ITS | Encounter Summary ---
Author Organization [facility] Address [address] [place] [address] Care Team Providers Care Contour Path Tape Mill Operator Name Role Phone Karli Almazan MD Primary Care Provid er Reason for Visit * Reason Comments Follow-up skin check - nevus o n labia Encounter Details Date Type Department Care Team (Late st Contact Info) Description 06/25/2012 14:00 EDT Office Visit [facility] Dermatology 3[address] [address] Gilson Morrison PA-C [address] [place] [address], [address] [place] [address] Benign neoplasm of skin, site unspecified (Primary Dx) Social History Tobacco Use Types [...] this encounter Patient Instructions * Patient Instructions* Gilson Morrison PA-C - 06/25/2012 14:15 EDT SUN PROTECTION AND SUN SCREENS Repeated and prolonged exposure to sunlight greatly increases your risk of all types of skin cancer. In addition, chronic sun exposure is the major cause of wrinkles, spotty, unhealthy appearing skin. It???s important to have a healthy and active lifestyle and we encourage you to continue this. However, some common sense guidelines will help to keep your skin and eyes safe. ?? Avoid the hot mid-day sun. Try to schedule your outdoor activities for dispute resolution specialist or early evening. ?? Make clothing a regular part of protection. Keep your shirt on- wear long sleeves and a wide brimmed hat. ?? Be especially careful when on the water, snow or sand as sunlight is reflected upwards from these surfaces. ?? Don???t forget your eyes! Wear sunglasses- Sun exposure increases your risk for cataracts. ?? Make sure your children practice good sun protection. Early sun damage increases their risk of developing skin cancer. ?? Wear a sunscreen. We recommend using a sunscreen with both UVA and UVB protection and a SPF of at least 15. If you sunburn more easily or are in more intense sun, you will need a higher SPF. A ???waterproof?? sunscreen is usually good for about 4 hours, even if you???re swimming. A ???water resistant?? sunscreen should be reapplied every 2 hours and after swimming. Remember to put sunscreen on your ears and lips. There are many lip balms available with sunscreen. For more information about sun protection and skin cancer: www.skincancer.org Sunscreens: Sunlight is made up of different wavelengths, some of which we can see as the various colors of therainbow, or ???visible?? light. UVA and UVB are invisible wavelengths, which penetrate into the skin and in excess amounts, cause injury. When the injury is severe, skin cells and become inflamed and we see sunburn. UVB causes sunburn more quickly than UVA and most sunscreens are targeted towards this wavelength. Tanning while wearing sunscreen may mean that primarily UVA light is reaching the skin. This is the same UVA light that is used in tanning beds and is responsible for causing wrinkles, brown spots and possibly melanoma. For this reason, we recommend that you don???t use tanning b eds and that you use sunscreen with both UVA and UVB protection. Most sunscreen ingredients are good at blocking UVB light. The only ingredients that also do a goodjob blocking UVA light are listed below. Make sure your sunscreen contains one of these ingredients. CAUTION: in some people Parasol may cause staining of white clothing. ?? Parasol (avobenzone) ?? Zinc Oxide ?? See other side for sunscreen recommendationsTitanium Oxide Some recommended brands: ?? Blue Lizard Baby suncream - SPF 30 o Contains titanium dioxide and zinc oxide and is chemical/fragrance free o Good for sensitive skin and babies ?? Coppertone Spectra - SPF 30 and 50 o Contains zinc oxide ?? Coppertone Sport - SPF 30 and 50 o ???Sweatproof? Neutrogena Ultra Sheer Dry Touch - SPF 30, 45, 55, 70 and 85 o Sensitive skin formula available ?? NO-AD Sunblock - SPF 30 o Sensitive skin formula available ?? La Anam-Posay Anthelios - SPF 40 o Long acting sunscreen with excellent UVA and UVB coverage ?? Bullfrog - SPF 36 o ???Preston?? and ???Sweatproof?? o Alcohol based - goes on quickly and good for skin with hair Good ???everyday?? moisturizer for the face: ?? Oil of Olay Complete Sun Protection - SPF 15 ?? Cetaphil daily facial moisturizer - SPF 15 ?? La Anam-Posay Anthelios SX - SPF 15 documented in this encounter Progress Notes * Gilson Morrison PA-C - 06/25/2012 1400 EDT Chief Complaint Patient presents with ??? Follow-up skin check - nevus on labia Diagnosis: 1.) Nevi 2.) Pigmented nevus, right labia majora Subjective: Jessica presents for follow-up today, last seen here by me on 12/09/2010. At that visit, primary dermatologic diagnosis was Actinic keratoses on: Right orthodox x 1; Left nasal tip x 1; Left upper cutaneous lip. Treatments recommended included cryotherapy to lesions at that visit. Response totreatment was clearance of lesions about 1 week after treatment. New concerns today include: Pigmented lesion on right labia majora, noted recently by PCP during a routine pelvic exam. Patient was not aware of lesion, not sure how long has been present. Her thinks it has been there for quite a while. History of lesion(s) negative for spontaneous bleeding, itching or pain. /Not employed. Objective: Complete Cutaneous Exam On physical examination, in general, Ms. Connelly is a female who is well-groomed, well-nourished and appears stated age and is is in no apparent distress. She is alert and oriented to person, place andtime. She has Amin type III skin. Complete cutaneous examination of the head, including the scalp and face, neck, back, chest, including breasts and axillae, abdomen, genitalia, groin, buttocks, intertriginous areas, and all four extremities were examined. The examination was normal with theaddition of the following comments: Lesion A: Location: back/chest/left flank Lesion Color: flesh-colored, pink, brown Lesion Type: papules Lesion Description: Scattered, exophytic, soft, 1-3.5 mm diameter. morphologically similar with respect to one another Lesion B: Location: Right inferior labia majora Lesion Color: brown Lesion Type: macule Lesion Description: Stellate, evenly pigmented, 1.5 mm diameter, no suspicious features noted. A/P: 1.) Nevi, back/chest/left flank. PLAN: Patient reassurance; no further treatment today. 2.) Pigmented nevus, right labia majora. Differential Diagnosis: Labial Melanotic Macule. PLAN: Patient reassurance; no further treatment today. Counseled patient that lesion has entirely benign appearance clinically. Recommended that she observe lesion with aid of hand-held mirror every few months, let me know if sees any changes. AAD skin cancer brochure given and reviewed. ABCDE's of Malignantmelanoma were reviewed at length. The patient indicates understanding of these issues and agrees with the plan. Follow up here in one year, sooner if needed. Gilson Morrison PA-C 06/25/2012 * Bernarda Adams - 06/25/2012 1357 EDT A complete 12 point review of systems was obtained and reviewed. All systems are negative. Bernarda Adams 06/25/2012 13:57 Reviewed Gilson Morrison PA-C 06/25/2012 documented in this encounter Plan of Treatment Not on file documented as of this encounter Visit Diagnoses Diagnosis Benign neoplasm of skin, site unspecified- Primary documented in this encounter Discontinued Medications Medication Sig Discontinue Reason Start Date End Da te CALCIUM-MAGNESIUM ORAL Take by mouth. Patient Stopped Taking documented as of this encounter Care Teams Contour Path Tape Mill Operator Relationship Specialty Start Date End Date Karli Almazan MD [address] [place] [id number] PCP - General 01/29/10 02/14/13 documented as of this encounter
--- OUTSIDE RECORDS SUMMARY | 2024-10-13 11:39 | XMS_ITS | Encounter Summary ---
Author Organization [facility] Address [address] [place] [address] Care Team Providers Care Community Health Nursing Director Name Role Phone Karli Almazan MD Primary Care Provid er Reason for Visit * Reason Comments Neck Pain chronic Encounter Details Date Type Department Care Team (Late st Contact Info) Description 11/22/2010 10:15 EST Office Visit [facility] Adult Primary Care - [place] [address] [place] [address] Karli Almazan MD [address] [place], [place] [id number] Neck pain (Primary Dx) Social History Tobacco Use Types Packs/Day Years Used Date Smoking Tobacco: Former Comments:smoked when she was 12 years old and stopped at the age of 14 Alcohol Use Standard Drinks/Week Comments Not Asked 0 (1 standard drink = 0.6 oz pur e alcohol) Comments No Sex and Gender Information Value Date Recorded Sex Assigned at Not on file Legal Sex Female 18:28 EST Gender Identity Female 01/14/2024 16:04 EDT Sexual Orientation Not on file documented as of this encounter Last Filed Vital Signs Vital Sign Reading Time Taken Comments Blood Pressure 118/66 11/22/2010 1020 EST Pulse 68 11/22/2010 1020 EST Temperature 36.5 ??C (97.7 ??F) 11/22/2010 1020 EST Respiratory Rate - - Oxygen Saturation - - Inhaled Oxygen Concentration - - Weight 71.7 kg (158 lb) 11/22/2010 1020 EST Height - - Body Mass Index 25.5 04/23/2010 1526 EDT documented in this encounter Progress Notes * Karli Almazan MD - 11/22/2010 1409 EST Subjective: Patient ID: Jessica Connelly is an 50 y.o. female. Chief Complaint Patient presents with ??? Neck Pain chronic HPI Chronic neck pain, c spine films in 2003 with severe degenerative disk disease and bony impingementon neural foramen on right and left. Recently neck pain worse, triggering her migraines Has long history of migraines made worse around menses but these are more frequent, last 1-2 days, takes ibuprofen on occasion which help but trouble functioning. Notes exercise now trigger migraines--skiing (using poles) yoga (even gentle yog). Pain starts between shoulder blades and radiates up into base of skull. No increase in social stressors. Does note irregular menses x 9 months. Generally active, does not sit in one position--does weaving, cooking, writing a book but none of those for long enough stretch of time to result in muscle tension. Good posture Recently had eyes examined and prescription changed. Had RTC injury, right shoulder, last year. Better post PT but still bothers on occasion, wonders whether some of pain in shoulder due to neck. Does occasionally get some numbness in hands (both, rt>lft) with biking or if sleeps on wrong, but generally does not have many symptoms in hands or arms. Does acupuncture and sees osteopath (does not do adjustments) Has had to cut back on massage therapy recently due to cost Patient Active Problem List Diagnoses Code ??? Migraines 346.90E ??? Systolic murmur 785.2BX ??? Chronic fatigue syndrome 780.71 Past Medical History Diagnosis Date ??? Candidiasis per patient, logan sensitivity ??? Pneumonia ??? Appendicitis Current outpatient prescriptions ordered prior to encounter Medication Sig Dispense Refill ??? OMEGA-3 FATTY ACIDS (OMEGA-3 ORAL) Take by mouth daily. ??? MULTIVITAMINS (MULTIVITAMIN ORAL) Take by mouth daily. Vit, A,D,B,C,K ??? SELENIUM ORAL Take by mouth daily. ??? UNABLE TO FIND daily. Med Name: Pantethine, Serrapeptase ??? VITAMIN B COMPLEX (VIT BALANCED B-100 ORAL) Take by mouth. 4 times weekly ??? CALCIUM-MAGNESIUM ORAL Take by mouth. ??? MINERALS ORAL Take by mouth. Allergies Allergen Reactions ??? Penicillins Hives ??? Codeine Nausea Only ??? Other - See Comments Antibiotics trigger systemic logan per patient. Avoids. Social History Substance Use Topics ??? Smoking status: Former Smoker ??? Smokeless tobacco: Never Used Comment: smoked when she was 12 years old and stopped at the age of 14 ??? Alcohol Use: Not on file ROS - See HPI Objective: BP 118/66 Pulse 68 Temp(Src) 36.5 ??C (97.7 ??F) (Tympanic) Wt 71.668 kg (158 lb) LMP 11/15/2010 Physical Exam Constitutional: She appears well-developed and well-nourished. Appears comfortable at rest Musculoskeletal: She exhibits no edema. Tightness trapezius, right >left Neurological: Cranial Nerves II-XII within normal limits including visual garcia. Normal finger to nose testing, normal gait Decreased sensation to pinprick on thumb, first finger and all fingers to lesser extent right hand relative to left hand. Good medical center representative strength bilaterally. Good ROM right shoulder, does note some pain with active arm abduction >90deg on right. Psychiatric: She has a normal mood and affect. Her behavior is normal. Thought content normal. Assessment: and Plan: Jessica was seen today for neck pain. Diagnoses and associated orders for this visit: Neck pain Due to OA and DDD based on xray 7 years ago Triggering migraines Minimal arm symptoms although some persistent numbness right hand so discussed surgery not a great option--she doesn't want anyway Discussed perimenopause may be contributing to migraines also She will let me know if would like c spine MRI Also discussed injection into neck at pain center may be an option. documented in this encounter Plan of Treatment Not on file documented as of this encounter Visit Diagnoses Diagnosis Neck pain- Primary Cervicalgia documented in this encounter Care Teams Community Health Nursing Director Relationship Specialty Start Date End Date Karli Almazan MD [address] [place] [address] PCP - General 01/29/10 02/14/13 documented as of this encounter
--- OUTSIDE RECORDS SUMMARY | 2024-10-13 11:39 | XMS_ITS | Encounter Summary ---
Author Organization [facility] Address [address] [place] [address] Care Team Providers Care Hydroelectric Station Operator Name Role Phone Cesar Bae MD Primary Care Provider [phone] Reason for Visit * Reason Comments Leg Injury left lower lyman area , open wound. Foreign Body in Skin Patient did get lindsay e of it out on her own Encounter Details Date Type Department Care Team (Late st Contact Info) Description 03/09/2013 10:30 EDT Office Visit [facility] Adult Primary Care - [address] [address] Nicho Brown [address] [place] [id number] Cellulitis (Primary Dx) Social History Tobacco Use Types [...] Sign Reading Time Taken Comments Blood Pressure 120/69 03/09/2013 1043 EDT Pulse 78 03/09/2013 1043 EDT Temperature 37.2 ??C (98.9 ??F) 03/09/2013 1043 EDT Respiratory Rate - - Oxygen Saturation - - Inhaled Oxygen Concentration - - Weight - - Height - - Body Mass Index - - documented in this encounter Progress Notes * Nicho Brown - 03/09/2013 1701 EDT SUBJECTIVE: Chief Complaint Patient presents with ??? Leg Injury left lower lyman area, open wound. ??? Foreign Body in Skin Patient did get some of it out on her own HPI: 52 yo female, presents with wound, possible foreign body in lyman. Scratched her leg while walking through brush over a week ago. Had a scratch that was not terribly deep or painful. Has been soaking daily in epsom salts. Scratch has healed well, but patient noticed that the proximal margin of the abrasion was growing redder and warm yesterday. Removed as fairly large piece of wood from the with tweezers. Concerned that there is still material left in the wound. Has had no fever or chills. Has allergies to a number of antibiotics. Patient Active Problem List Diagnoses ??? Migraine ??? Systolic murmur ??? Chronic fatigue syndrome ??? Actinic keratosis ??? Benign neoplasm of skin, site unspecified Current Outpatient Prescriptions on File Prior to Visit Medication Sig Dispense Refill ??? EPINEPHrine (EPIPEN) 0.3 mg/0.3 mL injection Inject 0.3 mL into the muscle once as needed for 1dose. 2 Syringe 6 ??? OMEGA-3 FATTY ACIDS (OMEGA-3 ORAL) Take by mouth daily. ??? MULTIVITAMINS (MULTIVITAMIN ORAL) Take by mouth daily. Vit, A,D,B,C,K ??? SELENIUM ORAL Take by mouth daily. ??? UNABLE TO FIND daily. Med Name: Pantethine, Serrapeptase ??? VITAMIN B COMPLEX (VIT BALANCED B-100 ORAL) Take by mouth. 4 times weekly ??? MINERALS ORAL Take by mouth. OBJECTIVE: BP 120/69 Pulse 78 Temp(Src) 37.2 ??C (98.9 ??F) (Tympanic) LMP 11/15/2010 General: Alert, pleasant, NAD Skin:Healing abrasion on left lyman, about 5 cm long. 12 mm area of erythematous, warm, firm tissue at the proximal margin of abrasion. ASSESSMENT and PLAN: Cellulitis: 5CC lidocaine instilled into skin surrounding wound. Shallow incision, ~ 2 cm long, made where induration evident. No foreign material evident. No purulent fluid expressed. Flushed with 20 CC normal saline. 1 steri strip placed. Sterile gauze placed over top. Encouraged to leave RIN, soak in epsom salts till healed. documented in this encounter Plan of Treatment Not on file documented as of this encounter Visit Diagnoses Diagnosis Cellulitis- Primary Cellulitis and abscess of unspecified site documented in this encounter Care Teams Hydroelectric Station Operator Relationship Specialty Start Date End Date Cesar Bae MD [address] [place] [address] PCP - General 02/15/13 07/20/17 documented as of this encounter
--- OUTSIDE RECORDS SUMMARY | 2024-10-13 11:39 | XMS_ITS | Encounter Summary ---
Author Organization [facility] Address [address] [place] [address] Care Team Providers Care Slot Machine Repairer Name Role Phone Unavailable Primary Care Provider Unavailabl e Encounter Details Date Type Department Care Team (Late st Contact Info) Description 05/24/2008 8:54 EDT Hospital Encounter [facility] - Maple conversion [address] [place] [address] Karli Almazan MD [address] [place] [address] Social History Tobacco Use Types Packs/Day Years [...]
--- OUTSIDE RECORDS SUMMARY | 2024-10-13 11:39 | XMS_ITS | Encounter Summary ---
Author Organization [facility] Address [address] [place] [address] Care Team Providers Care Supervisor Cell Operation Name Role Phone Cesar Bae MD Primary Care Provider [phone] Encounter Details Date Type Department Care Team (Latest Contact Info) Description 08/24/2015 9:00 EDT - 08/24/2015 23:59 EDT Hospital Encounter [address] [address] Unknown, Provider, Discharge Disposition: Home or Self Care Social [...] on file documented as of this encounter Medications at Time of Discharge [...] Code Departure Means Destination Home or Self Long Term documented in this encounter Plan of Treatment Not on file documented as of this encounter Procedures Procedure Name Priority Date/Time Associated Diagnosis Comments VITAMIN D (25,OH) Routine 08/24/2015 9:1 0 EDT T3 FREE Routine 08/24/2015 9:10 EDT TSH Routine 08/24/2015 9:10 EDT T4 Routine 08/24/2015 9:10 EDT HEMOGLOBIN A1C Routine 08/24/2015 9:10 EDT VITAMIN B12 Routine 08/24/2015 9:10 EDT LIPID PROFILE (INCLUDES CHOLESTEROL, TRIGLYCERIDES, HDL, LDL) Routine 08/24/2015 9:10 EDT COMPREHENSIVE METABOLIC PANEL (CMP) Routine 08/24/2015 9:10 EDT documented in this encounter Results * VITAMIN D (25,OH) (08/24/2015 9:10 EDT) 25OH Vitamin D Tot 33.1 30 - 100 ng/ml 08/27/2015 13:49 EDT [facility] Comment: Reference Range: Deficient = <10 ng/ml Insufficient = 10-30 ng/ml Sufficient = 30-100 ng/ml Toxic = >100 ng/ml BLOOD SPECIMEN / Unknown 08/24/2015 9:10 EDT 08/24/2015 10:00 EDT Kirby Alba ND CHEMISTRY & BLOOD GAS ORDERAB LES Final Result [facility] [address] [place] [address] * TSH (08/24/2015 9:10 EDT) TSH 2.41 0.55 - 4.78 uIU/ml 08/24/2015 11:32 EDT [facility] BLOOD SPECIMEN / Unknown 08/24/2015 9:10 EDT 08/24/2015 10:00 EDT [facility] BLOOD GAS ORDERAB LES Final Result Performing Organization Address City/[facility]/ZIP Co de Phone Number [facility] [address] [place] [address] * T4 (08/24/2015 9:10 EDT) T4, Total 8.8 4.5 - 10.9 ug/dl 08/24/2015 11:32 EDT [facility] BLOOD SPECIMEN / Unknown 08/24/2015 9:10 EDT 08/24/2015 10:00 EDT [facility] CHEMISTRY & BLOOD GAS ORDERAB LES Final Result Performing Organization Address City/[facility] Co de Phone Number [facility] [address] [place] [address] * LIPID PROFILE (INCLUDES CHOLESTEROL, TRIGLYCERIDES, HDL, LDL) (08/24/2015 9:10 EDT) Cholesterol 230 mg/dl 08/24/2015 10:38 [facility] Comment: Desirable:<200 Borderline High:200-239 High:>sv=655 Triglycerides 89 mg/dl 08/24/2015 10:38 [facility] Comment: Normal:<150 Borderline High:150-199 High:200-499 Very High:>dt=709 HDL 79 mg/dl 08/24/2015 10:38 [facility] Comment: Low:<40 Normal:40-60 Desirable: >60 LDL, Calculated 133 mg/dl 5 10:38 [facility] Comment: Optimal:<100 Near Optimal:100-129 Borderline High:130-159 High:160-189 Very High:>qz=827 Chol/HDL Ratio 2.9 08/24/2015 10:38 [facility] Fasting? YES 08/24/2015 9:09 EDT [facility] Non HDL Cholesterol 151 mg/dl 08/24/2015 10:38 EDT [facility] Comment: Desirable:<130 Borderline:130-159 High: 160-189 Very High: >yz=426 BLOOD SPECIMEN / Unknown 08/24/2015 9:10 EDT 08/24/2015 10:00 EDT [facility] CHEMISTRY & BLOOD GAS ORDERAB LES Final Result Performing Organization Address [facility] de Phone Number [facility] [address] [place] [address] * HEMOGLOBIN A1C (08/24/2015 9:10 EDT) Hemoglobin A1C 5.6 % 08/24/2015 15:15 EDT [facility] Comment: Reference Range: <5.7% Normal 5.7-6.4% Increased risk for diabetes =>6.5% Diagnostic for diabetes (if confirmed) The A1c goal for non adults in general is <7%. The A1c goal for selected patients may be significantly lower than 7% if this can be achieved without significant hypoglycemia or other adverse effects of treatment. Est Avg Glucose 114 mg/dl 5 15:15 EDT [facility] Comment: eAG represents the A1c result expressed as average glucose in mg/dl. BLOOD SPECIMEN / Unknown 08/24/2015 9:10 EDT 08/24/2015 10:00 EDT [facility] CHEMISTRY & BLOOD GAS ORDERAB LES Final Result Performing Organization Address [facility] Co de Phone Number [facility] [address] [place] [address] * T3 FREE (08/24/2015 9:10 EDT) T3, Free 2.9 2.3 - 4.2 pg/mL 08/24/2015 11:32 EDT [facility] BLOOD SPECIMEN / Unknown 08/24/2015 9:10 EDT 08/24/2015 10:00 EDT us Kirby Zamanchristiano ALVARADO CHEMISTRY & BLOOD GAS ORDERAB LES Final Result [facility] [address] [place] [address] * COMPREHENSIVE METABOLIC PANEL (CMP) (08/24/2015 9:10 EDT) Potassium 4.3 3.5 - 5.0 mEq/L 08/24/2015 10:38 T [facility] Sodium 140 136 - 145 mEq/L 08/24/2015 10:38 [facility] Chloride 104 96 - 110 mEq/L 08/24/2015 10:38 [facility] CO2 26 24 - 32 mEq/L 08/24/2015 10:38 [facility] Total Alkaline Phosphatase 71 38 - 126 U/L 08/24/2015 10:38 [facility] Bilirubin, Total 0.7 <1.4 mg/dl 08/24/20 15 10:38 [facility] AST 20 15 - 46 U/L 08/24/2015 10:38 [facility] ALT 22 <53 U/L 08/24/2015 10:38 [facility] Albumin 4.5 3.4 - 4.9 g/dl 08/24/2015 10:38 [facility] Total Protein 7.3 6.3 - 8.2 g/dl 08/24/2015 10:38 [facility] Creatinine 0.77 0.52 - 1.04 mg/dl 08/24/2015 10:38 [facility] GFR, Calculated 87 >60 ml/min/1.7 3m2 08/24/2015 10:38 [facility] Comment: eGFR calculated using CKD-EPI equation for non Americans. Multiply eGFR by 1.16 for Americans. BUN 10 10 - 26 mg/dl 08/24/2015 10:38 [facility] Calcium 9.2 8.5 - 10.5 mg/dl 08/24/2015 10:38 EDT [facility] Calculated Calcium 9.1 8.5 - 10.5 mg/dl 08/24/2015 10:38 EDT [facility] Glucose, Serum 84 70 - 100 mg/dl 08/24/2015 10:38 EDT [facility] Fasting? YES 08/24/2015 9:09 EDT [facility] BLOOD SPECIMEN / Unknown 08/24/2015 9:10 EDT 08/24/2015 10:00 EDT Kirby Alba ND CHEMISTRY & BLOOD GAS ORDERAB LES Final Result [facility] [address] [place] [address] * VITAMIN B12 (08/24/2015 9:10 EDT) Vitamin B-12 852 211 - 911 pg/ml 08/24/2015 11:32 EDT [facility] BLOOD SPECIMEN / Unknown 08/24/2015 9:10 EDT 08/24/2015 10:00 EDT Kirby Alba ND CHEMISTRY & BLOOD GAS ORDERAB LES Final Result [facility] [address] [place] [address] documented in this encounter Visit Diagnoses Not on filedocumented in this encounter Care Teams Supervisor Cell Operation Relationship Specialty Start Date End Date Cesar Bae MD [address] [place] [address] PCP - General 02/15/13 07/20/17 documented as of this encounter
--- OUTSIDE RECORDS SUMMARY | 2024-10-13 11:39 | XMS_ITS | Encounter Summary ---
Author Organization [facility] Address [address] [place] [address] Care Team Providers Care Simplex Operator Name Role Phone Unavailable Primary Care Provider Unavailabl e Encounter Details Date Type Department Care Team (Late st Contact Info) Description 02/10/2007 Before PRISM Converted Visit (Maple) [facility] - Maple conversion [address] [place] [address] Karli Almazan MD [address] [place], [place] [address] Social History Tobacco Use Types Packs/Day Years Used Date Smoking Tobacco: Never Assessed Comments Unknown Sex and Gender Information Value Date Recorded Sex Assigned at Not on file Legal Sex Female 18:28 EST Gender Identity Female 01/14/2024 16:04 EDT Sexual Orientation Not on file documented as of this encounter Progress Notes * Karli Almazan MD - 09/05/2009 [address] [address] PROGRESS/FOLLOWUP NOTE - 02/10/2007 REASON FOR VISIT 46-year-old female with rash on her hands and feet. Ms. Connelly reports [place], shedeveloped what she thought was fungus on her feet. It got worse after [place], which she blamed on eating more sugar. She then noticed over the past month or that the rash hadspread to her hands. She has tried a number of things including liver cleanses, oral logan treatment, which is homeopathic, as well as probiotics orally. She has topically tried tea tree oil, bleach bath, and iodine. Shedoes believe that the bleach bath helped, although did not get rid of it. It is not especially itchy. No one in her family has gotten a similar rash. PAST MEDICAL HISTORY Please see the chart. PAST SURGICAL HISTORY Please see the chart. MEDICATIONS Please the chart. PHYSICAL EXAMINATION BP 92/66. Heart rate is 72. Temperature 98.9??. Weight 157 pounds. General: She is pleasant, conversational, appears well. Examination of her left foot reveals scaling and peeling of the skin from the sole of the mid foot to the base of the toes. There are some areas of blistering. One her hands, she has similar scaly rash on her palms with some small blistering areas as well. MANI: Negative for hyphae. ASSESSMENT /PLAN Dyshidrotic eczema. Gave her a prescription for clobetasol 0.05% x 2 weeks. She will let me know ifthis does not lead to improvement, in which case I would refer her to dermatology. If recurs off clobetasol, will try maintenance with lower potency steroid. Signed by Karli Almazan MD 02/22/2007 21:36 David Almazan, Rupal Almazan MD Karli Almazan MD - Karli Almazan MD A - glt Job ID: [id number] Document ID: [id number] cc: documented in this encounter Plan of Treatment Not on file documented as of this encounter Visit Diagnoses Not on filedocumented in this encounter
--- OUTSIDE RECORDS SUMMARY | 2024-10-13 11:39 | XMS_ITS | Encounter Summary ---
Author Organization [facility] Address [address] [place] [address] Care Team Providers Care Salvation Army Officer Name Role Phone Cesar Bae MD Primary Care Provider [phone] Reason for Visit * Reason Onset Date Comments Requesting Sooner Appointment 02/14/2016 Encounter Details Date Type Department Care Team (Late st Contact Info) Description 02/14/2016 Telephone [facility] Dermatology 3rd Floor [facility] [address] [place] [address] Matt Lopez MD Requesting Sooner Appointment Social History Tobacco Use Types Packs/Day Years [...] encounter Miscellaneous Notes * Telephone Encounter - Cyndie Hoffman RN - 02/15/2016 0943 EDT Patient reports: Has a couple of spots on her skin that are irritated Lesion on nose for over a year Size of a pencil eraser [place] Rectangular in shape Tends to peel Sensitive when she rubs her nose Lesion above the left side of her upper lip 1 year Size of a pencil eraser [place] Square shaped Peels when her lip gets dry in the winter Does not bleed No personal history of skin cancer, maternal grandfather had a history of skin cancer she is unsureof what type Last seen: 06/25/12 ([place]) Patient scheduled at 0815 with ANNE Aponte RN 02/15/2016 9:51 * Telephone Encounter - Brian Wen - 02/14/2016 1634 EDT Patient is requesting a sooner appointment for irritating, persistent, red lesions on nose and lip.Patient was last seen by MAMTA Gee on 06/25/12. Please call patient. documented in this encounter Plan of Treatment Not on file documented as of this encounter Visit Diagnoses Not on filedocumented in this encounter Care Teams Salvation Army Officer Relationship Specialty Start Date End Date Cesar Bae MD [address] [place] [id number] PCP - General 02/15/13 07/20/17 documented as of this encounter
--- OUTSIDE RECORDS SUMMARY | 2024-10-13 11:39 | XMS_ITS | Encounter Summary ---
Author Organization [facility] Address [address] [place] [address] Care Team Providers Care Membership Counselor Name Role Phone Cesar Bae MD Primary Care Provider [phone] Encounter Details Date Type Department Care Team (Late st Contact Info) Description 09/15/2013 Phlebotomy Only [facility] [address] [place] [address] Smoking Tobacco Packer Hand, Outpatient Social History Tobacco Use Types Packs/Day [...] on filedocumented in this encounter Care Teams Membership Counselor Relationship Specialty Start Date End Date Cesar Bae MD [address] [place] [phone] PCP - General 02/15/13 07/20/17 documented as of this encounter
--- OUTSIDE RECORDS SUMMARY | 2024-10-13 11:39 | XMS_ITS | Encounter Summary ---
Author Organization [facility] Address [address] [place] [address] Care Team Providers Care Sliver Lapper Name Role Phone Karli Almazan MD Primary Care Provid er Encounter Details Date Type Department Care Team (Late st Contact Info) Description 02/13/2010 Abstract [facility] Adult Primary Care - [address] [address] Karli Almazan MD [address] [place] [address] Social History Tobacco Use Types Packs/Day Years [...] Diagnoses Not on filedocumented in this encounter Historical Medications * This list may reflect changes made after this encounter. MINERALS ORAL Take by mouth. 08/01/2014 CALCIUM-MAGNESIUM ORAL Take by mouth. 06/25/2012 added in this encounter Care Teams Sliver Lapper Relationship Specialty Start Date End Date Karli Almazan MD [address] [place], [place] [id number] PCP - General 01/29/10 02/14/13 documented as of this encounter
--- OUTSIDE RECORDS SUMMARY | 2024-10-13 11:39 | XMS_ITS | Encounter Summary ---
Author Organization [facility] Address [address] [place] [address] Care Team Providers Care Printed Circuit Boards Pinner Name Role Phone Cesar Bae MD Primary Care Provider Reason for Visit * Reason Onset Date Comments Foreign Body in Skin 03/11/2013 OV here Encounter Details Date Type Department Care Team (Late st Contact Info) Description 03/11/[address] [facility] Adult Primary Care - [place] [address] [place] [address] Cesar Bae MD [address] [place] [address] Foreign Body in Skin (OV here) Social History Tobacco Use Types Packs/Day Years [...] encounter Miscellaneous Notes * Telephone Encounter - Zulema Stevens RN - 03/11/2013 0901 EDT Pt states after soaking the area this am in epsom salts as she has been doing one side of it is hard and seems red and puffy to her. Advised to go to [facility]. She is in [place] so will go to ER at hospital down there. (we have no available apts here today). * Telephone Encounter - Tatiana Yeung - 03/11/2013 0811 EDT W/ Michael Camronie on 03.09.13; pt states site appears infected to her; pls call to advise documented in this encounter Plan of Treatment Not on file documented as of this encounter Visit Diagnoses Not on filedocumented in this encounter Care Teams Printed Circuit Boards Pinner Relationship Specialty Start Date End Date Cesar Bae MD [address] [place] [address] PCP - General 02/15/13 07/20/17 documented as of this encounter
--- OUTSIDE RECORDS SUMMARY | 2024-10-13 11:39 | XMS_ITS | Encounter Summary ---
Author Organization [facility] Address [address] [place] [address] Care Team Providers Care Solar Pool Heating Installer Name Role Phone Karli Almazan MD Primary Care Provid er Reason for Referral * Consult (Routine) - Closed Specialty Diagnoses / Procedures [facility] Referred To Contact Dermatology Diagnoses Dermatosis Karli Almazan MD Phone: tel: fax: [facility] Dermatology 5th Floor [facility] [address] [place] [address] Phone: tel: fax: Referral ID Status Reason Start Date Expiration Date V isits Requested Visits Authorized [id number] Closed Specialty Services Required 02/19/2010 1 1 Question Answer Reason for Request: red patch on nose, worsening. ?AK or early squamous cell Reason for Visit * Reason Comments Mass spot on nose. it's s ore when she's in the sun Encounter Details Date Type Department Care Team (Late st Contact Info) Description 02/19/2010 15:00 EDT Office Visit [facility] Adult Primary Care - [address] [address] Karli Almazan MD [address] [place] [phone] Dermatosis (Primary Dx) Social History Tobacco Use Types [...] Sign Reading Time Taken Comments Blood Pressure 120/70 02/19/2010 1531 EDT Pulse 64 02/19/2010 1531 EDT Temperature 36.9 ??C (98.5 ??F) 02/19/2010 1531 EDT Respiratory Rate - - Oxygen Saturation - - Inhaled Oxygen Concentration - - Weight 69.9 kg (154 lb) 02/19/2010 1531 EDT Height 167.6 cm (5' 6) 02/19/2010 1531 EDT Body Mass Index 24.86 02/19/2010 1531 EDT documented in this encounter Progress Notes * Mariam Appiah - 02/19/2010 1553 EDT Pt scheduled with Derm 10:30 main level 5 [facility] - pt aware * Karli Almazan MD - 02/19/2010 1544 EDT Subjective: Patient ID: Jessica Connelly is an 49 y.o. female. Chief Complaint: HPI Patch on nose, red, x 2 years, worse when in sun recently. Has not bleed. No FH of skin cancer Patient Active Problem List Diagnoses Code ??? Migraines 346.90E ??? Systolic murmur 785.2BX ??? Chronic fatigue syndrome 780.71 No past surgical history on file. Past Medical History Diagnosis Date ??? Candidiasis per patient, logan sensitivity ??? Pneumonia No family history on file. Current outpatient prescriptions Medication Sig Dispense Refill ??? VITAMIN B COMPLEX (VIT BALANCED B-100 ORAL) Take by mouth. 4 times weekly ??? CALCIUM-MAGNESIUM ORAL Take by mouth. ??? MINERALS ORAL Take by mouth. Allergies Allergen Reactions ??? Penicillins Hives ??? Codeine Nausea Only ??? Other - See Comments Antibiotics trigger systemic logan per patient. Avoids. History Social History ??? Marital Status: Spouse Name: N/A Number of Children: N/A ??? Years of Education: N/A Occupational History ??? Not on file. Social History Main Topics ??? Tobacco Use: Quit smoked when she was 12 years old and stopped at the age of 14 ??? Alcohol Use: Not on file ??? Drug Use: Not on file ??? Sexually Active: Not on file Other Topics Concern ??? Not on file Social History Narrative ??? No narrative on file ROS Per HPI Objective: Physical Exam Skin: Red patch tip of nose without scaling or bleeding Smaller neighboring patch also without scaling or bleeding BP 120/70 Pulse 64 Temp(Src) 36.9 ??C (98.5 ??F) (Tympanic) Ht 1.676 m (5' 6) Wt 69.854 kg(154 lb) Assessment: Encounter Diagnoses Code Name Primary? Qualifier ??? 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 documented in this encounter Plan of Treatment Scheduled Referrals Name Type Priority Associated Diagnoses Order Schedule AMB CONSULT DERMATOLOGY Outpatient Referral Routine Dermatosis Ordered: 02/19/2010 documented as of this encounter Visit Diagnoses Diagnosis Dermatosis- Primary Unspecified disorder of skin and subcutaneous tissue documented in this encounter Historical Medications * This list may reflect changes made after this encounter. VITAMIN B COMPLEX (VIT BALANCED B-100 ORAL) Take by mouth. 4 times weekly added in this encounter Care Teams Solar Pool Heating Installer Relationship Specialty Start Date End Date Karli Almazan MD [address] [place] [id number] PCP - General 01/29/10 02/14/13 documented as of this encounter
--- OUTSIDE RECORDS SUMMARY | 2024-10-13 11:39 | XMS_ITS | Encounter Summary ---
Author Organization [facility] Address [address] [place] [address] Care Team Providers Care Damper Maker Name Role Phone Cesar Bae MD Primary Care Provider [phone] Reason for Referral * Consult (Routine) - Closed Specialty Diagnoses / Procedures Referred By Abby de paz Referred To Contact Chiropractic Medicine Diagnoses Neck pain Back pain Radha Moe APRN Referral ID Status Reason Start Date Expiration Date V isits Requested Visits Authorized [id number] Closed Specialty Services Required 08/02/2014 1 1 Question Answer Reason for Request: neck and back Scheduling Comments (optional ? describe specific scheduling needs if applicable): 08.01.[address] rene Comments Dr. rene chiropractor in [place]. Please fax to [phone]. For neck and back. Referral good for a year Reason for Visit * Reason Onset Date Comments Referral Request 08/02/2014 Encounter Details Date Type Department Care Team (Late st Contact Info) Description 08/02/2014 Telephone [facility] Adult Primary Care - [place] [address] [place] [address] Cesar Bae MD [address] [place] [phone] Referral Request Social History Tobacco Use Types Packs/Day Years [...] * Telephone Encounter - Danette Sheridan - 08/09/2014 1644 EDT Referral has been faxed * Telephone Encounter - Danette Sheridan - 08/02/2014 1026 EDT Reason for Call: Referral Request Summary/Symptoms: Referral, send Dr. rene chiropractor in [place]. Please fax to [phone]. For neck and back Onset and Duration? n/a Appointment Offered? n/a Pt called, a referral is needed. Danette Sheridan 08/02/2014 10:26 documented in this encounter Plan of Treatment Scheduled Referrals Name Type Priority Associated Diagnoses Order Schedule AMB CONS/FOLLOW UP CHIROPRACTIC Outpatient Referral Routine Neck pain Back pain Ordered: 08/02/2014 documented as of this encounter Visit Diagnoses Diagnosis Neck pain- Primary Cervicalgia Back pain Backache, unspecified documented in this encounter Care Teams Damper Maker Relationship Specialty Start Date End Date Cesar Bae MD [address] [place] [phone] PCP - General 02/15/13 07/20/17 documented as of this encounter
--- OUTSIDE RECORDS SUMMARY | 2024-10-13 11:39 | XMS_ITS | Encounter Summary ---
Author Organization [facility] Address [address] [place] [address] Care Team Providers Care Sew On Operator Name Role Phone Karli Almazan MD Primary Care Provid er Encounter Details Date Type Department Care Team (Late st Contact Info) Description 11/24/2007 Results Only [facility] Adult Primary Care - [address] [address] Karli Almazan MD [address] [place], [place] [phone] Social History Tobacco Use Types Packs/Day Years [...] Procedure Name Priority Date/Time Associated Diagnosis Comments 25 [place] VITAMIN D2 D3 Routine 11/24/2007 1 2:19 EST THYROID CASCADE Routine 11/24/2007 12:19 EST IBC Routine 11/24/2007 12:19 EST SED RATE Routine 11/24/2007 12:19 EST COMPLETE BLOOD COUNT AND DIFFERENTIAL Routine 11/24/2007 12:19 EST IRON Routine 11/24/2007 12:19 EST FOLATE Routine 11/24/2007 12:19 EST VITAMIN B12 Routine 11/24/2007 12:19 EST COMPREHENSIVE METABOLIC PANEL (CMP) Routine 11/24/2007 12:19 EST documented in this encounter Results * 25 OH VITAMIN D2 D3 (11/24/2007 12:19 EST) 25-Hydroxy D2 <4.0Unit: ng/mL [facility] 25-Hydroxy D3 29Unit: ng/mL LYNNE NAVA 25-Hydroxy D Total 29Unit: ng/mL(Note) -- REFERENCE VALUE -- ? 25-HYDROXY D TOTAL (D2+D3) ? Optimum levels in the normal ? population are 25-80 ? Performed or Referred by: [facility] Dpt of Lab Med and Path, [address] [facility], [place] [address], Lab Dir: Vincenzo Sharp III, ? MD ? [facility] 11/24/2007 12:1 9 EST 11/24/2007 12:20 EST us Karli Almazan MD CHEMISTRY & BLOOD GA S ORDERABLES Final Result Performing Organization Address [facility] de Phone Number [facility] [address] [place] [address] * THYROID CASCADE (11/24/2007 12:19 EST) TSH 1.53 0.35 - 5.00 uIU/mL [facility] Comment: TSH cascade is not recommended for patients in which pituitary or hypothalamic disorders are suspected. 11/24/2007 12:1 9 EST 11/24/2007 12:20 EST us Karli Almazan MD CHEMISTRY & BLOOD GA S ORDERABLES Final Result Performing Organization Address [facility] de Phone Number [facility] [address] [place] [address] * SED. RATE:PETE (11/24/2007 12:19 EST) Sed. Rate Milesergren 11 0 - 20 mm/hr [facility] 11/24/2007 12:1 9 EST 11/24/2007 12:20 EST us Karli Almazan MD HEMATOLOGY & PF4 ORD ERABLES Final Result Performing Organization Address [facility] de Phone Number [facility] [address] [place] [address] * IRON (11/24/2007 12:19 EST) Iron 126 60 - 180 ug/dl [facility] 11/24/2007 12:1 9 EST 11/24/2007 12:20 EST Karli Almazan MD CHEMISTRY & BLOOD GA S ORDERABLES Final Result Performing Organization Address [facility] de Phone Number [facility] [address] [place] [address] * IBC (11/24/2007 12:19 EST) TIBC 292 265 - 497 ug/dl [facility] 11/24/2007 12:1 9 EST 11/24/2007 12:20 EST Karli Almazan MD CHEMISTRY & BLOOD GA S ORDERABLES Final Result Performing Organization Address [facility] Phone Number [facility] [address] [place] [address] * FOLATE (11/24/2007 12:19 EST) Folate 10.9 ng/mL [facility] Comment: Deficient: ??Less than 3.4 ng/mL Indeterminate: ??3.4-5.4 ng/mL Normal: ??Greater than 5.4 ng/mL 11/24/2007 12:1 9 EST 11/24/2007 12:20 EST Karli Almazan MD CHEMISTRY & BLOOD GA S ORDERABLES Final Result Performing Organization Address [facility] de Phone Number [facility] [address] [place] [address] * (ABNORMAL) COMPREHENSIVE METABOLIC PANEL (11/24/2007 12:19 EST) Potassium 4.3 3.5 - 5.0 mEq/L [facility] Sodium 139 136 - 145 mEq/L [facility] Chloride 104 96 - 110 mEq/L [facility] CO2 28 24 - 32 mEq/L [facility] Total Alkaline Phosphatase 70 38 - 126 U/L [facility] Bilirubin, Total <0.5 0.2 - 1.3 mg/dl [facility] AST 30 15 - 46 U/L [facility] ALT 20 9 - 52 U/L [facility] Albumin 4.7 3.4 - 4.9 g/dl [facility] Total Protein 7.9 6.5 - 8.3 g/dl [facility] Creatinine 0.70 0.7 - 1.5 mg/dl [facility] GFR, Calculated >60 ml/min/1.7 3m2 [facility] BUN 8(L) 10 - 26 mg/dl [facility] Calcium 9.3 8.5 - 10.5 mg/dl [facility] Calculated Calcium 9.0 8.5 - 10.5 mg/dl [facility] Glucose, Serum 79 70 - 100 mg/dl [facility] Fasting? No [facility] 11/24/2007 12:1 9 EST 11/24/2007 12:20 EST us Karli Almazan MD CHEMISTRY & BLOOD GA S ORDERABLES Final Result [facility] [address] [place] [address] * HEMAGRAM AND DIFFERENTIAL (11/24/2007 12:19 EST) WBC 6.75 4.0 - 12.4 K/cmm [facility] RBC 4.29 3.86 - 5.04 M/cmm [facility] Hemoglobin 13.6 11.6 - 15.2 gm/dl [facility] HCT 39.4 34.9 - 44.4 % [facility] MCV 92 81 - 98 fl [facility] MCH 31.7 26.7 - 33.3 pg [facility] MCHC 34.6 32.1 - 35.9 gm/dl [facility] PLT 299 141 - 320 K/cmm [facility] RDW-CV 12.8 11.7 - 14.6 % [facility] % Neutrophils 55.2 45.5 - 79.7 % [facility] % Lymphocytes 34.3 15.0 - 46.8 % [facility] % Monocytes 6.9 1.8 - 12.0 % [facility] % Eosinophils 3.1 0.6 - 6.9 % [facility] % Basophils 0.5 0.2 - 1.4 % [facility] ABS Neutrophils 3.73 2.20 - 8.85 K/cmm [facility] ABS Lymphs 2.32 1.09 - 3.30 K/cmm [facility] ABS Monocytes 0.46 0.1 - 0.8 K/cmm [facility] ABS Eosinophils 0.21 0.03 - 0.61 K/cmm [facility] ABS Basophils 0.03 0.01 - 0.11 K/cmm [facility] Type of Diff: Automated [facility] 11/24/2007 12:1 9 EST 11/24/2007 12:20 EST Karli Almazan MD PACKAGES & DNA PROBE ORDERABLES Final Result Performing Organization Address City/[facility] Co de Phone Number [facility] [address] [place] [address] * VITAMIN B12 (11/24/2007 12:19 EST) Vitamin B-12 603 250 - 1100 pg/ml [facility] 11/24/2007 12:1 9 EST 11/24/2007 12:20 EST Karli Almazan MD CHEMISTRY & BLOOD GA S ORDERABLES Final Result Performing Organization Address [facility] Co de Phone Number [facility] [address] [place] [address] documented in this encounter Visit Diagnoses Not on filedocumented in this encounter Care Teams Sew On Operator Relationship Specialty Start Date End Date Karli Almazan MD [address] [place] [id number] PCP - General 01/29/10 02/14/13 documented as of this encounter
--- OUTSIDE RECORDS SUMMARY | 2024-10-13 11:39 | XMS_ITS | Encounter Summary ---
Author Organization [facility] Address [address] [place] [address] Care Team Providers Care Sawmilling Operator Name Role Phone Karli Almazan MD Primary Care Provid er Reason for Visit * Reason Onset Date Comments Appointment Related 11/29/2010 Encounter Details Date Type Department Care Team (Late st Contact Info) Description 11/29/2010 Telephone [facility] Dermatology 5th Floor [facility] [address] [place], [place] [phone] Pau Moe, RN Appointment Related Social History Tobacco Use Types [...] encounter Miscellaneous Notes * Telephone Encounter - Pau Moe RN - 11/29/2010 1622 EST Patient's is scheduled to come in on 12/09/10 for skin exam with Maye Ballard PA-C. She is due for a skin check and she and her would like to be seen on same date by same provider. Patient would like to transfer care to Maye Morrison PA-C. Patient scheduled for FUR on 12/09/2010 at 10:00AMwith Maye MORRISON PA-C. New patient paperwork mailed. Pau Moe RN 11/29/2010 16:22 documented in this encounter Plan of Treatment Not on file documented as of this encounter Visit Diagnoses Not on filedocumented in this encounter Care Teams Sawmilling Operator Relationship Specialty Start Date End Date Karli Almazan MD [address] [place] [id number] PCP - General 01/29/10 02/14/13 documented as of this encounter
--- OUTSIDE RECORDS SUMMARY | 2024-10-13 11:39 | XMS_ITS | Encounter Summary ---
Author Organization [facility] Address [address] [place] [address] Care Team Providers Care Macadam Raker Name Role Phone Karli Almazan MD Primary Care Provid er Encounter Details Date Type Department Care Team (Late st Contact Info) Description 06/18/2012 Results Only [facility] Adult Primary Care - [address] [address] Karli Almazan MD [address] [place], [place] [id number] Social History Tobacco Use Types Packs/Day Years [...] Name Priority Date/Time Associated Diagnosis Comments PAP TEST- RESULT ONLY Routine 06/18/2012 0:00 EDT documented in this encounter Results * PAP TEST- RESULT ONLY (06/18/2012 0:00 EDT) Pathology Report: CYTOPATHOLOGY REPORT Reports generated via electronic interface contain original data; however they are lacking the format of the original report. Caution should be taken when reading/interpreti ng unformatted reports. Name: ? JESSICA ALVAREZ ? Accession #: ? [id number] ? : ? 1960 (Age: 51) ??F ?Collect Date: ? 06/18/2012 ? Location: ? [facility] ? Receive Date: ? 06/21/2012 ? Provider: KARLI ALMAZAN MD Copy to: ? Final Report SPECIMEN ADEQUACY ? Satisfactory for Evaluation - transformation zone component present GENERAL CATEGORIZATION ? Negative for Intraepithelial Lesion or Malignancy ?? Specimen/Source: ??Pap Test, Cervix, ThinPrep Imaging System with manual evaluation Document reviewed and electronically signed by: ? Romel Ivey, [place](ASCP) ? Report ??Date: 06/28/2012 10:11 HPV with Pap Test ? Date Ordered: ? 06/28/2012 ? Status: ?? Signed Out ?Date Complete: ? 06/30/2012 ? By: ??System Interface ? Date Reported: ? 06/30/2012 ? Interpretation RESULT: Negative for HPV. No E6 or E7 mRNA is detected from HPV types 16,18,31,33,35, 39,45,51,52,56,58, 59,66, and 68 by qa engineer mediated amplification. Comments Document reviewed and electronically signed by: ? System Interface ? Report date: 06/30/2012 By the signature above, the attending physician certifies that he/she has personally conducted a gross and/or microscopic examination of the described specimens and rendered or confirmed the above diagnosis. End of Report L[facility] 06/18/2012 06/21/2012 us Karli Almazan MD PATHOLOGY ORDERABLES Final Result Performing Organization Address City/State/[facility] Co de Phone Number [facility] [address] [place] [address] documented in this encounter Visit Diagnoses Not on filedocumented in this encounter Care Teams Macadam Raker Relationship Specialty Start Date End Date Karli Almazan MD [address] [place] [address] PCP - General 01/29/10 02/14/13 documented as of this encounter
--- OUTSIDE RECORDS SUMMARY | 2024-10-13 11:39 | XMS_ITS | Encounter Summary ---
Author Organization [facility] Address [address] [place] [address] Care Team Providers Care Sole Filler Name Role Phone Unavailable Primary Care Provider Unavailabl e Encounter Details Date Type Department Care Team (Late st Contact Info) Description 11/24/2007 Before PRISM Converted Visit (Maple) [facility] - Maple conversion [address] [place] [address] Karli Almazan MD [address] [place], [place] [phone] Social History Tobacco Use Types Packs/Day Years Used Date Smoking Tobacco: Never Assessed Comments Unknown Sex and Gender Information Value Date Recorded Sex Assigned at Not on file Legal Sex Female 18:28 EST Gender Identity Female 01/14/2024 16:04 EDT Sexual Orientation Not on file documented as of this encounter Progress Notes * Karli Almazan MD - 09/09/20092026 EST [address] [phone] PROGRESS/FOLLOWUP NOTE - 11/24/2007 PRESENTING A 47 -year-old female with headache, fatigue, and muscle stiffness. Ms. Connelly reports that she has been feeling like she has increased muscle stiffness in her hips andneck area. She finds that the stiffness builds up over time and massage helps. Her has mainly been responsible for doing the massage for her. She also has headaches, which she gets most specifically before and after her menstrual periods. She has tried some French herbs, which have been helpful. She went to the [place] [facility] in [place], which was very helpful this is summer, but her headaches are now back now that she is back in the [place]. also has been feeling fatigued. She cross-country skis for an hour and then she has to rest the whole. She does it for half and hour and then she has to take an afternoon nap. She is not clear whether these symptoms seem to get worse in the winter, although system perhaps they do. These symptoms of note have been longstanding issues for her really all of her adult life and she has had to actively them with complementary and alternative medicine practices and herbs. They have kept her from being gainfully employed. 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 She gets a good mix of whole grains, nuts, and protein. She does consider herself a vegan. She tells me that her sleep is okay, but she rarely gets a full night sleep. She a lot in the middle of the night and occasionally awakens because she has to go to the bathroom or has an acidic stomach forwhich she drinks melinda water. When she wakes up she is then awake for about an hour or two. She doesnot snore. She tells me that her mood has been okay. She does feel herself a bit weepy at times andsays this is classic for someone who has ???endocrine issues.?? She blames a number of her ailments on a weak liver of sorts. She has seen an osteopath in [facility], found it to be somewhat helpful. Has not seen a naturopathic doctor here, is interested in a referral. PAST MEDICAL HISTORY AND PAST SURGICAL HISTORY In the front of the chart. MEDICATIONS She is taking a number of herbal remedies. PHYSICAL EXAM Blood pressure 114/74, heart rate of 60. Temperature of 98.4. Weight of which has fluctuated a bit.Generally, she is pleasant, appears wellShe does have a tense trapezius muscle, as well as points to a focal point at the base of her occiput on the right side, as a focal point of her discomfort. She has some aching in her arms, but is no actually frankly tender to our exam. Full range of motion in her hips does not elicit any pain. Cardiovascular: Regular rate and rhythm, no murmurs, gallops orrubs and no carotid bruits. Abdomen: Is soft, nontender, nondistended, no hepatosplenomegaly and nomasses. ASSESSMENT/PLAN Headaches, fatigue, and muscle stiffness, of long duration. She is very interested in osteopathic, and complementary, and alternative medicines solutions. We will check a complete metabolic panel, CBC, B12, folate, thyroid function test, and vitamin D. I also did give her a referral for the osteopath that she would like to go back and see again, as well as an open ended referral for a marketing analytics analyst.I did give her the names of Palmira Hall and Ishcisco Loja. Signed by Karli Almazan MD 12/06/2007 20:54 Karli Almazan MD - Karli Almazan MD - EDITH Job ID: [id number] Doc ID: [id number] cc: D: - Karli Almazan MD - edith Job ID: [id number] Doc ID: [id number] cc: documented in this encounter Plan of Treatment Not on file documented as of this encounter Visit Diagnoses Not on filedocumented in this encounter
--- OUTSIDE RECORDS SUMMARY | 2024-10-13 11:39 | XMS_ITS | Encounter Summary ---
Author Organization [facility] Address [address] [place] [address] Care Team Providers Care Shoe Designer Name Role Phone Unavailable Primary Care Provider Unavailabl e Encounter Details Date Type Department Care Team (Latest Contact Info) Description 11/24/2007 11:05 EST - 11/24/2007 11:59 EST Hospital Encounter [facility] - Maple conversion [address] [place] [address] Karli Almazan MD [address] [place] [address] Discharge Disposition: Auto Discharge Social History Tobacco Use Types Packs/Day Years Used Date Smoking Tobacco: Never Assessed Comments Unknown Sex and Gender Information Value Date Recorded Sex Assigned at Not on file Legal Sex Female 18:28 EST Gender Identity Female 01/14/2024 16:04 EDT Sexual Orientation Not on file documented as of this encounter Discharge Disposition Disposition Code Departure Means Destination Auto Discharge documented in this encounter Plan of Treatment Not on file documented as of this encounter Procedures Procedure Name Priority Date/Time Associated Diagnosis Comments CYTOPATHOLOGY Routine 05/24/2008 0:00 EDT CYTOPATHOLOGY Routine 05/24/2008 0:00 EDT documented in this encounter Results * CYTOPATHOLOGY (05/24/2008 0:00 EDT) Pathology Report: CYTOPATHOLOGY REPORT Reports generated via electronic interface contain original data; however they are lacking the format of the original report. Caution should be taken when reading/interpreti ng unformatted reports. Name: ? KATHYJeyJESSICA ? Accession #: ? [id number] : ? 1960 (Age: 47) ??F ?Collect Date: ? 05/24/2008 Location: ? [facility] ? Receive Date: ? 05/24/2008 Provider: ?KARLI ALMAZAN MD Copy to: ? Specimen/Source: ?ThinPrep Pap Test, Cervix, processed on [employer] ThinPrep Imaging System, with manual evaluation Last Menstrual Period: ? 2 weeks Other: ? HPVA - HPV testing requested if ASC-US on the current ThinPrep Pap test. ? SPECIMEN ADEQUACY ? Satisfactory for Evaluation - transformation zone component present GENERAL CATEGORIZATION ? Negative for Intraepithelial Lesion or Malignancy ? Document reviewed and electronically signed by: ? MINH Jones(ASCP) ? Report Date: ??05/30/2008 08:14 End of Report [facility] 05/24/2008 05/24/2008 us Karli Almazan MD PATHOLOGY ORDERABLES Final Result [facility] [address] [place] [address] * CYTOPATHOLOGY (05/24/2008 0:00 EDT) Pathology Report: CYTOPATHOLOGY REPORT ? Reports generated via electronic interface contain original data; ? however they are lacking the format of the original report. ? Caution should be taken when reading/interpreti ng unformatted reports. ? Name: ? JESSICA CONNELLY ? Accession #: ? [id number] ? : ? 1960 (Age: 47) ??F ?Collect Date: ? 05/24/2008 ? Location: ? [facility] ? Receive Date: ? 05/24/2008 ? Provider: ?KARLI M ALMAZAN MD ? Copy to: ? Specimen/Source: ?ThinPrep Pap Test, Cervix, processed on [employer] ThinPrep ?? Imaging System, with manual evaluation ? Last Menstrual Period: ? 2 weeks ? Other: ? HPVA - HPV testing requested if ASC-US on the current ThinPrep Pap test. ? SPECIMEN ADEQUACY ? Satisfactory for Evaluation ? - transformation zone component present ? GENERAL CATEGORIZATION ? Negative for Intraepithelial Lesion or Malignancy ? Document reviewed and electronically signed by: ? Edwige Sonia, [place](ASCP) ? Report Date: ??05/30/2008 08:14 ? End of Report ? [facility] 05/24/2008 05/24/2008 us Karli Almazan MD PATHOLOGY ORDERABLES Final Result [facility] [address] [place] [address] documented in this encounter Visit Diagnoses Not on filedocumented in this encounter
--- OUTSIDE RECORDS SUMMARY | 2024-10-13 11:39 | XMS_ITS | Encounter Summary ---
Author Organization [facility] Address [address] [place] [address] Care Team Providers Care Medical I D Sales Name Role Phone Karli Almazan MD Primary Care Provid er Encounter Details Date Type Department Care Team (Late st Contact Info) Description 04/12/2012 Results Only [facility] ([facility] [address] [place] [address] Giacomo Hall, [place] [address] [place] [address] Social History Tobacco Use Types Packs/Day Years [...] Associated Diagnosis Comments VITAMIN D (25,OH) Routine 04/12/2012 9:05 EDT COMPLETE BLOOD COUNT Routine 04/12/2012 9:05 EDT C REACTIVE PROTEIN Routine 04/12/2012 9:05 EDT TSH Routine 04/12/2012 9:05 EDT T4 FREE Routine 04/12/2012 9:05 EDT LIPID PROFILE (INCLUDES CHOLESTEROL, TRIGLYCERIDES, HDL, LDL) Routine 04/12/2012 9:05 EDT BASIC METABOLIC PANEL (BMP) Routine 04/12/2012 9:05 EDT documented in this encounter Results * VITAMIN D (25,OH) (04/12/2012 9:05 EDT) 25OH Vitamin D Tot 32.7 ng/ml [facility] Comment: Reference Range: <10 ng/ml: Deficient 10-30 ng/ml: Insufficient 30-100 ng/ml: Sufficient >100 ng/ml: Toxic 04/12/2012 9:05 EDT 04/12/2012 20:17 EDT [facility] B Hall [place] CHEMISTRY & BLOOD GAS ORDERABLES Final Result Performing Organization Address [facility] Co de Phone Number [facility] [address] [place] [address] * TSH (04/12/2012 9:05 EDT) Pathologist [facility] TSH 1.40 0.35 - 5.00 uIU/ml [facility] 04/12/2012 9:05 EDT 04/12/2012 20:17 EDT [facility] B Hall [place] CHEMISTRY & BLOOD GAS ORDERABLES Final Result Performing Organization Address [facility] Co de Phone Number [facility] [address] [place] [address] * LIPID PROFILE (INCLUDES CHOLESTEROL, TRIGLYCERIDES, HDL, LDL) (04/12/2012 9:05 EDT) Cholesterol 245 mg/dl [facility] Comment: Desirable:<200 Borderline High:200-239 High:>ex=651 Triglycerides 105 mg/dl [facility] Comment: Normal:<150 Borderline High:150-199 High:200-499 Very High:>oe=650 HDL 78 mg/dl [facility] Comment: Low:<40 Normal:40-60 Desirable: >60 LDL, Calculated 146 mg/dl [facility] Comment: Optimal:<100 Near Optimal:100-129 Borderline High:130-159 High:160-189 Very High:>pi=172 Chol/HDL Ratio 3.1 [facility] Fasting? Yes [facility] 04/12/2012 9:05 EDT 04/12/2012 20:17 EDT Giacomo Hall [place] CHEMISTRY & BLOOD GAS ORDERABLES Final Result Performing Organization Address [facility] Co de Phone Number [facility] [address] [place] [address] * T4 FREE (04/12/2012 9:05 EDT) Free T4 1.0 0.8 - 1.8 ng/dL [facility] 04/12/2012 9:05 EDT 04/12/2012 20:17 EDT Giacomo Hall [place] CHEMISTRY & BLOOD GAS ORDERABLES Final Result Performing Organization Address [facility] de Phone Number [facility] [address] [place] [address] * C-REACTIVE PROTEIN (04/12/2012 9:05 EDT) C-Reactive Protein <0.7 <1.0 mg/dl [facility] 04/12/2012 9:05 EDT 04/12/2012 20:17 EDT Giacomo Hall [place] CHEMISTRY & BLOOD GAS ORDERABLES Final Result Performing Organization Address [facility] Co de Phone Number [facility] [address] [place] [address] * HEMAGRAM (04/12/2012 9:05 EDT) WBC 4.62 4.0 - 12.4 K/cmm [facility] RBC 4.07 3.86 - 5.04 M/cmm [facility] Hemoglobin 12.7 11.6 - 15.2 gm/dl [facility] HCT 37.8 34.9 - 44.4 % [facility] MCV 93 81 - 98 fl [facility] MCH 31.3 26.7 - 33.3 pg [facility] MCHC 33.7 32.1 - 35.9 gm/dl [facility] PLT 246 141 - 320 K/cmm [facility] RDW-CV 12.7 11.7 - 14.6 % [facility] 04/12/2012 9:05 EDT 04/12/2012 20:17 EDT Giacomo Hall [place] HEMATOLOGY & PF4 ORDERABLES Ruth l Result [facility] [address] [place] [address] * BASIC METABOLIC PANEL (04/12/2012 9:05 EDT) Sodium 140 136 - 145 mEq/L [facility] Potassium 4.2 3.5 - 5.0 mEq/L [facility] Chloride 104 96 - 110 mEq/L [facility] CO2 28 24 - 32 mEq/L [facility] BUN 10 10 - 26 mg/dl [facility] Creatinine 0.66 0.52 - 1.04 mg/dl [facility] GFR, Calculated >60 >60 ml/min/1.7 3m2 [facility] Calcium 9.1 8.5 - 10.5 mg/dl [facility] Calculated Calcium 9.3 8.5 - 10.5 mg/dl [facility] Glucose, Serum 82 70 - 100 mg/dl [facility] Fasting? Yes [facility] 04/12/2012 9:05 EDT 04/12/2012 20:17 EDT Giacomo Hall [place] CHEMISTRY & BLOOD GAS ORDERABLES Final Result [facility] [address] [place] [address] documented in this encounter Visit Diagnoses Not on filedocumented in this encounter Care Teams Medical I D Sales Relationship Specialty Start Date End Date Karli Almazan MD [address] [place], [place] [address] PCP - General 01/29/10 02/14/13 documented as of this encounter
--- OUTSIDE RECORDS SUMMARY | 2024-10-13 11:39 | XMS_ITS | Encounter Summary ---
Author Organization [facility] Address [address] [place] [address] Care Team Providers Care Band Leader Name Role Phone Unavailable Primary Care Provider Unavailabl e Encounter Details Date Type Department Care Team (Late st Contact Info) Description 02/10/2007 9:26 EDT Hospital Encounter [facility] - Maple conversion [address] [place] [address] Karli Almazan MD [address] [place] [address] Social History Tobacco Use Types Packs/Day Years [...]
--- OUTSIDE RECORDS SUMMARY | 2024-10-13 11:39 | XMS_ITS | Encounter Summary ---
Author Organization [facility] Address [address] [place] [address] Care Team Providers Care Paint Line Supervisor Name Role Phone Cesar Bae MD Primary Care Provider [phone] Reason for Visit * Reason Comments Skin Exam FBSE, lesions on nos e and upper lip Encounter Details Date Type Department Care Team (Late st Contact Info) Description 06/30/2016 8:15 EDT Office Visit [facility] Dermatology 3rd Floor [facility] [address] [place], [place] [address] Deena Davila, MAMTA [address] [address] Actinic keratoses (Primary Dx); Multiple benign nevi; Sun-damaged [...] as of this encounter Discharge Diagnoses Diagnosis L57.0 Actinic keratosis-L57.0[ICD-10-CM] L57.8 Other skin changes due to chronic exposure to nonionizing radiation-L57.8[ICD-10-CM] D23.9 Other benign neoplasm of skin, unspecified-D23.9[ICD-10-CM] L82.1 Other seborrheic keratosis-L82.1[ICD-10-CM] documented in this encounter Patient Instructions * Patient Instructions* Deena Spencer PA - 06/30/2016 8:45 EDT DERMATOLOGY WOUND CARE INSTRUCTIONS FOR CRYOSURGERY The area you had treated with liquid nitrogen therapy may swell, blister and throb for 24 hours. You may see blood in the blisters. If the blisters open, apply Vaseline/petroleum jelly until the areahas healed. We do not recommend the use of triple antibiotic ointment or other ointments as they can cause allergic reactions. Any scabs that form should fall off within 14-21 days. CONTACT THE OFFICE IF YOU EXPERIENCE: ?? increasing redness ?? warmth to touch ?? increasing pain ?? drainage with a foul odor ?? rapid swelling of the wound ?? fever or chills Please call our office or . documented in this encounter Progress Notes * Deena Spencer PA - 06/30/2016 0845 EDT The attending physician was available for this visit Problem Encounter Diagnoses Name Primary? Actinic keratoses Yes ??? Multiple benign nevi ??? Sun-damaged skin ??? Seborrheic keratoses SUBJECTIVE Chief Complaint: Chief Complaint Patient presents with ??? Skin Exam FBSE, lesions on nose and upper lip Ms. Connelly is a 55 y.o. female with a history of history of multiple sunburns and avid outdoor lifestyle who presents for follow up skin exam. Actinic Keratosis Patient complains of new skin lesions. Patient describes pink scaling lesions located on the face. Symptoms include pain. Previous treatment for prior lesions has been cryosurgery. Past history of skin cancer: none. Other skin problems: no. Last Dermatology office visit: 2011 The patient has not noticed any scabbing, [...] today as documented in Prism. OBJECTIVE VS: Visit Vitals ??? LMP 11/15/2010 Physical Exam: Complete Cutaneous Exam [...] of whichhave any worrisome or atypical features Gritty macule left nasal tip Spider angioma right upper cutaneous lip Skin: There were no lesions suspicious for malignancy. ASSESSMENT AND PLAN Jessica was seen today for skin exam. Diagnoses and all orders for this visit: Actinic keratoses ??1 left nasal tip, patient declined topical 5-FU preferred liquid nitrogen cryosurgery Recommended liquid nitrogen cryosurgery to the above stated actinic keratosis(es) CRYOSURGERY PROCEDURE NOTE PATIENT INFORMATION: Jessica Connelly [id number] 1960 [id number] 1960 DATE OF PROCEDURE: 06/30/2016 SURGEON: MAMTA Nolasco Liquid nitrogen cryosurgery was used to destroy a total of 1 lesion(s) on the above stated locations. The expected reaction and healing course were discussed, as well as the possibility of incompleteresolution and/or permanent dyspigmentation. The indication, risks, benefits and alternatives to this procedure were discussed in detail with the patient and all questions were answered and patient/parent/power of contract attorney consent obtained. Verbal wound care instructions were given. COMPLICATIONS: none Multiple benign nevi Sun-damaged skin Seborrheic keratoses [...] the interim should problems arise. MAMTA Nolasco 06/30/2016 8:45 This note has been prepared with voice recognition software. Please excuse harm reduction worker errors. * Bryan Winston - 06/30/2016814 EDT Review of Systems Constitutional: Negative for [...] sleep disturbance. The patient is not nervous/anxious. Bryan Winston 06/30/2016 8:15 RAMÍREZ Aponte 06/30/2016 8:22 * Laurence Olivares MD - 06/30/2016 0815 EDT I was the supervising physician and was present in the clinic during this visit. Note reviewed, patient was not seen by me. Laurence Olivares MD documented in this encounter Plan of Treatment Not on file documented as of this encounter Visit Diagnoses Diagnosis Actinic keratoses- Primary Actinic keratosis Multiple benign nevi Benign neoplasm of skin, site unspecified Sun-damaged skin Other dermatitis due to solar radiation Seborrheic keratoses documented in this encounter Care Teams Paint Line Supervisor Relationship Specialty Start Date End Date Cesar Bae MD [address] [place] [address] PCP - General 02/15/13 07/20/17 documented as of this encounter
--- OUTSIDE RECORDS SUMMARY | 2024-10-13 11:39 | XMS_ITS | Encounter Summary ---
Author Organization [facility] Address [address] [place] [address] Care Team Providers Care Head Chopper Name Role Phone Karli Almazan MD Primary Care Provid er Reason for Referral * Consult (Routine/Next Available) - Closed Specialty Diagnoses / Procedures Referred By Abby de paz Referred To Contact Dermatology Diagnoses Nevus Karli Almazan MD Phone: tel: fax: [facility] Dermatology 5th Floor [facility] [address] [place] [address] Phone: tel: fax: Referral ID Status Reason Start Date Expiration Date V isits Requested Visits Authorized [id number] Closed Specialty Services Required 06/18/2012 1 1 Question Answer Reason for Request: Has seen Gilson Morrison in the past. Has a dark more on labia. * Consult, Test and Treat (Routine/Next Available) - Closed Specialty Diagnoses / Procedures Referred By Abby de paz Referred To Contact Diagnoses Cervical pain (neck) Karli Almazan MD Phone: tel: fax: Referral ID Status Reason Start Date Expiration Date Visits Requested Visits Authorized [id number] Closed Patient Preference 06/18/2012 1 1 Question Answer Reason for Request: [facility]. Has degenerative disk disease and OA in neck, likely also in back. Reason for Visit * Reason Comments Annual Exam Gynecologic Exam Encounter Details Date Type Department Care Team (Late st Contact Info) Description 06/18/2012 16:15 EDT Office Visit [facility] Adult Primary Care - [address] [address] Karli Almazan MD [address] [place] [id number] Health maintenance examination (Primary Dx); Cervical pain (neck); Nevus Social History Tobacco Use Types Packs/Day Years [...] Sign Reading Time Taken Comments Blood Pressure 100/80 06/18/2012 1634 EDT Pulse 60 06/18/2012 1634 EDT Temperature 35.6 ??C (96.1 ??F) 06/18/2012 1634 EDT Respiratory Rate - - Oxygen Saturation - - Inhaled Oxygen Concentration - - Weight 67.1 kg (148 lb) 06/18/2012 1634 EDT Height 165.1 cm (5' 5) 06/18/2012 1634 EDT Body Mass Index 24.63 06/18/2012 1634 EDT documented in this encounter Patient Instructions * Patient Instructions* Karli Almazan MD - 06/18/2012 17:24 EDT [employer] Activation Thank you for your interest in [facility]'s patient portal, [employer]. Please follow the instructions below to set up your account. [employer] allows you to send messages to your doctor, view your test results, renew your prescriptions, request appointments, pay bills and more. How Do I Sign Up? 1. In your Internet browser, go to [email or web address] . 2. Click on the Accept My Invitation Code link in the Set Up an Account box. You will see the page: Accept My Invitation. 3. Enter your [employer] Invitation Code exactly as it appears below. You will not need to use this code after you???ve completed the sign-up process. If you do not sign up before the expiration date, you must request a new code. [employer] Invitation Code: [email or web address] Expires: 08/17/2012 17:24 4. Enter your Date of (mm/dd/yyyy) as indicated and click Next. You will be taken to the nextpage to create your account. 5. Create a [employer] username. This will be your [employer] Online username and cannot be changed, sothink of one that is secure and easy to remember. 6. Create a [employer] Online password. You can change your password at any time. Enter your passwordagain to confirm it. 7. Enter your e-mail address. You will receive e-mail notifications when new information is available in [employer]. 8. Enter your security question and answer. These can be used at a later time if you forget your password. 9. Click Create Account. You can now view your medical record and billing information. If you have been granted proxy access to another patient's chart, you will see that patient listed under Family Records when you log into your [employer] account. Additional Information If you have questions, you can email or call to talk to our [employer] Customer Service Center, which is open 24 hours a day, 7 days a week. Remember, [employer] is NOT to be used for urgent needs. For medical emergencies, dial 9-1-1. documented in this encounter Ordered Prescriptions Prescription Sig Dispense Quantity Refills Last Filled Start Date End Date EPINEPHrine (EPIPEN) 0.3 mg/0.3 mL injection Inject 0.3 mL into the muscle once as needed for 1 dose. 2 Syringe 6 06/18/2012 documented in this encounter Progress Notes * Karli Almazan MD - 06/21/2012 2005 EDT Subjective: Patient ID: Jessica Connelly is an 51 y.o. female. Chief Complaint Patient presents with ??? Annual Exam ??? Gynecologic Exam HPI Annual exam: Overall continues to have some pain in neck and lower back as well as chronic fatigue. Tries to take care of herself, walking,hiking, eating well but exercise is somewhat limited by pain Neck pain--c spine films by Dr. Hall (garment manufacturer) with DDD and DJD. Reports tightness in neck and has pain and numbness radiating into arms and hands (pinky, thumbs) when swims and when doing other activities using arms--cooking, gardening, cross country skiing. Some weakness when using hands a lot. Rarely uses ibuprofen, not interested in meds. Acupuncture and bee stings helpful but not 100% relief. Acupuncture and bee stings also help with migraines. Patient Active Problem List Diagnoses ??? Migraines ??? Systolic murmur ??? Chronic fatigue syndrome ??? Actinic keratosis Past Medical History Diagnosis Date ??? Candidiasis per patient, logan sensitivity ??? Pneumonia ??? Appendicitis ??? Arthritis ??? Heart murmur Current Outpatient Prescriptions on File Prior to Visit Medication Sig Dispense Refill ??? OMEGA-3 FATTY [...] Take by mouth. Allergies Allergen Reactions ??? Codeine Nausea Only ??? Other - See Comments Antibiotics trigger systemic logan per patient. Avoids. ??? Penicillins Hives Social History Substance Use Topics ??? Smoking status: Never Smoker ??? Smokeless tobacco: Never Used Comment: smoked when she was 12 years old and stopped at the age of 14 ??? Alcohol Use: No Review of Systems All other systems reviewed and are negative. - See HPI Objective: BP 100/80 Pulse 60 Temp(Src) 35.6 ??C (96.1 ??F) (Tympanic) Ht 165.1 cm (65) Wt 67.132 kg (148 lb) BMI 24.63 kg/m2 LMP 11/15/2010 Physical Exam Constitutional: She appears well-developed and well-nourished. No distress. HENT: Right Ear: External ear normal. Left Ear: External ear normal. Mouth/Throat: Oropharynx is clear and moist. No oropharyngeal exudate. Eyes: Conjunctivae are normal. Neck: No thyromegaly present. Cardiovascular: Normal rate, regular rhythm, normal heart sounds and intact distal pulses. Pulmonary/Chest: Effort normal and breath sounds normal. Right breast exhibits no mass, no nipple discharge and no skin change. Left breast exhibits no mass, no nipple discharge and no skin change. Abdominal: Soft. She exhibits no distension and no mass. There is no tenderness. Genitourinary: Vagina normal. Cervix visualized. No significant discharge. No adenexa tenderness or fullness. Uterus normal. Pap done. Dark mole on right labia Musculoskeletal: She exhibits no edema. Lymphadenopathy: She has no cervical adenopathy. She has no axillary adenopathy. Neurological: She is alert. Skin: Skin is warm. No rash noted. No erythema. Psychiatric: She has a normal mood and affect. Her behavior is normal. Thought content normal. Assessment: and Plan: Jessica was seen today for annual exam and gynecologic exam. Diagnoses and associated orders for this visit: Health maintenance examination - Pap Test - Screening Pap Smear;Obtain,Prep,Convey To Lab Defers mammograms Cervical pain (neck) - Ambulatory Consult Physical Therapy--[facility] Nevus - Ambulatory Consult Dermatology--for dark mole on labia Other Orders - EPINEPHrine (EPIPEN) 0.3 mg/0.3 mL injection; Inject 0.3 mL into the muscle once as needed for 1 dose. Patient Instructions [employer] Activation Thank you for your interest in [facility]'s patient portal, [facility]. Please follow the instructions below to set up your account. [employer] allows you to send messages to your doctor, view your test results, renew your prescriptions, request appointments, pay bills and more. How Do I Sign Up? 1. In your Internet browser, go to [email or web address] . 2. Click on the Accept My Invitation Code link in the Set Up an Account box. You will see the page: Accept My Invitation. 3. Enter your [employer] Invitation Code exactly as it appears below. You will not need to use this code after you???ve completed the sign-up process. If you do not sign up before the expiration date, you must request a new code. [employer] Invitation Code: [email or web address] Expires: 08/17/2012 17:24 4. Enter your Date of (mm/dd/yyyy) as indicated and click Next. You will be taken to the nextpage to create your account. 5. Create a [employer] username. This will be your [employer] Online username and cannot be changed, sothink of one that is secure and easy to remember. 6. Create a [employer] Online password. You can change your password at any time. Enter your passwordagain to confirm it. 7. Enter your e-mail address. You will receive e-mail notifications when new information is available in [employer]. 8. Enter your security question and answer. These can be used at a later time if you forget your password. 9. Click Create Account. You can now view your medical record and billing information. If you have been granted proxy access to another patient's chart, you will see that patient listed under Family Records when you log into your [employer] account. Additional Information If you have questions, you can email [email or web address] or call to talk to our [employer] Customer Service Center, which is open 24 hours a day, 7 days a week. Remember, [facility] [employer] is NOT to be used for urgent needs. For medical emergencies, dial 9-. documented in this encounter Plan of Treatment Scheduled Orders Name Type Priority Associated Diagnoses Orde r Schedule SCREENING PAP SMEAR;OBTAIN,PREP,CONV EY TO LAB Procedures Routine Health maintenance examination Ordered: 06/18/2012 Scheduled Referrals Name Type Priority Associated Diagnoses Order Schedule AMB CONSULT PHYSICAL THERAPY Outpatient Referral Routine Cervical pain (neck) Ordered: 06/18/2012 AMB CONSULT DERMATOLOGY Outpatient Referral Routine Nevus Ordered: 06/18/2012 documented as of this encounter Visit Diagnoses Diagnosis Health maintenance examination- Primary Routine general medical examination at a health care facility Cervical pain (neck) Cervicalgia Nevus Benign neoplasm of skin, site unspecified documented in this encounter Care Teams Head Chopper Relationship Specialty Start Date End Date Karli Almazan MD [address] [place] [id number] PCP - General 01/29/10 02/14/13 documented as of this encounter
--- OUTSIDE RECORDS SUMMARY | 2024-10-13 11:39 | XMS_ITS | Encounter Summary ---
Author Organization [facility] Address [address] [place] [address] Care Team Providers Care Bull Bucker Name Role Phone Cesar Bae MD Primary Care Provider [phone] Reason for Visit * Reason Comments Annual Exam Encounter Details Date Type Department Care Team (Late st Contact Info) Description 07/05/2013 9:30 EDT Office Visit [facility] Adult Primary Care - [place] [address] [place] [address] Cesar Bae MD [address] [place] [address] Routine general medical examination at a health care facility (Primary Dx) Social History Tobacco Use Types [...] Sign Reading Time Taken Comments Blood Pressure 117/72 07/05/2013 0921 EDT Pulse 60 07/05/2013 0921 EDT Temperature 36.1 ??C (96.9 ??F) 07/05/2013 0921 EDT Respiratory Rate 16 07/05/2013 0921 EDT Oxygen Saturation - - Inhaled Oxygen Concentration - - Weight 67.1 kg (148 lb) 07/05/2013920 EDT Height 167.6 cm (5' 6) 07/05/2013920 EDT Body Mass Index 23.89 07/05/2013 09 EDT documented in this encounter Progress Notes * Cesar Bae MD - 07/05/2013 0958 EDT Subjective: Patient ID: Jessica Connelly is an 52 y.o. female. Chief Complaint Patient presents with ??? Annual Exam HPI Patient Active Problem List Diagnoses ??? Migraine ??? Systolic murmur ??? Chronic fatigue syndrome ??? Actinic keratosis ??? Benign neoplasm of skin, site unspecified Past Medical History Diagnosis Date ??? Candidiasis per patient, logan sensitivity ??? Pneumonia ??? Appendicitis ??? Arthritis ??? Heart murmur Past Surgical History Procedure Date ??? Appendectomy 1971 ??? Skin biopsy Current Outpatient Prescriptions on File Prior to [...] weekly ??? [employer]AL Take by mouth. Allergies Allergen Reactions ??? Codeine Nausea Only ??? Other - See Comments Antibiotics trigger systemic logan per patient. Avoids. ??? Penicillins Hives Family History Problem Relation Age of Onset ??? * Father Von Anas, h/o brain aneurysm surgery ??? Coronary Artery Disease Father CABG 70s ??? Arthritis Father has spinal stenosis, osteoporosis, had [place] ??? Heart Disease Father CAD, developed in his 70's ??? High Blood Pressure Father ??? Arthritis Mother ??? Thyroid Disease Mother hypothyroid ??? * Brother kidney stones ??? Cancer Paternal Grandfather of lymphoma( Hodgkins) 2 great aunts with cancer- One with breast and one with lung Social History Substance Use Topics ??? Smoking status: Former Smoker -- 2 years Types: Cigarettes ??? Smokeless tobacco: Never Used Comment: smoked when she was 12 years old and stopped at the age of 14 ??? Alcohol Use: 10.0 oz/week 2 Glasses of wine per week History Social History ??? Marital Status: Spouse Name: N/A Number of Children: N/A ??? Years of Education: N/A Social History Main Topics ??? Smoking status: Former Smoker -- 2 years Types: Cigarettes ??? Smokeless tobacco: Never Used Comment: smoked when she was 12 years old and stopped at the age of 14 ??? Alcohol Use: 10.0 oz/week 2 Glasses of wine per week ??? Drug Use: No ??? Sexually Active: None Other Topics Concern ??? None Social History Narrative Lives with and 21 year old son--going to [employer]( [facility]) in the Fall. 26y son currentlyliving at home working 3 jobs. Currently not working. 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 2 cups of tea per dayRegular exercise- Walks atleast 2 miles day( may run about 1 mile day in good weather) . In winter she cross country skis. Sees osteopath and accelerator systems director on regular basis. Immunization History Administered Date(s) Administered ??? Td 11/02/2003 Review of Systems Constitutional: Negative for weight loss. HENT: Negative for hearing loss. Eyes: Negative for blurred vision and double vision. Respiratory: Positive for shortness of breath (had multiple episodes of pneumonia, had reaction to pesticides, also had a bad reaction to mold, seems to be better with silkworm enzyme). Negative for cough. Cardiovascular: Positive for palpitations (occ premature beats) and leg swelling (occasional, when standing , more in winter). Negative for chest pain. Gastrointestinal: Negative for abdominal pain, diarrhea and constipation. Genitourinary: Negative for dysuria, urgency, frequency and hematuria. Musculoskeletal: Positive for joint pain (neck, cervical radicular pain, ankles, sacral pain, accupuncture helps but hasn't been doing due to cost reasons). Skin: Negative for rash. Neurological: Positive for tingling (at night from cervical radicular pain) and headaches (does have migraines, hasn't had any since january, has been using rwandan herbs for this). Endo/Heme/Allergies: Positive for environmental allergies (sensative to chemicals, scents). Psychiatric/Behavioral: The patient has insomnia (does sleep lightly). - See HPI Objective: BP 117/72 Pulse 60 Temp(Src) 36.1 ??C (96.9 ??F) (Tympanic) Resp 16 Ht 167.6 cm (66) Wt 67.132 kg (148 lb) BMI 23.89 kg/m2 LMP 11/15/2010 Physical Exam Vitals reviewed. Physical Exam Constitutional: She appears well-developed and well-nourished. HENT: Head: Macrocephalic. Right Ear: Tympanic membrane and ear canal normal. Left Ear: Tympanic membrane and ear canal normal. Mouth/Throat: Oropharynx is clear and moist. Eyes: Extraocular motions are normal. Pupils are equal, round, and reactive to light. Neck: No thyromegaly present. Cardiovascular: Normal rate, regular rhythm, S1 normal and S2 normal. No murmur heard. Pulses: Carotid pulses are 2+ on the right side, and 2+ on the left side. No carotid bruits. DP pulses 2+ bilaterally. Pulmonary/Chest: Breath sounds normal. No respiratory distress. She has no wheezes. She has no rales. Abdominal: Soft. Bowel sounds are normal. She exhibits no distension and no mass. There is no organomegaly. No tenderness. Genitourinary: Deferred. Breast: normal appearing breasts with no nipple retraction. Diffuse and prominent fibrocystic changes present in both breasts. No axillary adenopathy. Musculoskeletal: She exhibits no edema. Lymphadenopathy: She has no cervical adenopathy. Neurological: No cranial nerve deficit. Skin: No concerning lesions noted. Scattered benign nevi. Assessment: Plan: There are no diagnoses linked to this encounter. Impression: #1 Health maintenance- Updated as above. At this point, she declines having a colonoscopy and she is aware of the risks of not having a colonoscopy. At this point, she also declines the Tdap vaccination as she believes that the immunologic reactions that vaccines have can cause damage to the body. She is up-to-date on her Pap smear. She is overdue for breast cancer screening which I do think she should have as she is at higher risk for breast cancer given her diffuse fibrocystic changes on exam. Additionally, her fibrocystic changes are going to make it difficult for her to notice a new lump on self exam. Nonetheless, she declines further screening for now. Her BMI and blood pressure both normal. Her last cholesterol profile was in 2011 and at that time, she had a total cholesterol of 245with HDL of 78 which gives her a good cholesterol/ HDL ratio. documented in this encounter Plan of Treatment Not on file documented as of this encounter Visit Diagnoses Diagnosis Routine general medical examination at a health care facility- Primary documented in this encounter Care Teams Bull Bucker Relationship Specialty Start Date End Date Cesar Bae MD [address] [place] [address] PCP - General 02/15/13 07/20/17 documented as of this encounter
--- OUTSIDE RECORDS SUMMARY | 2024-10-13 11:39 | XMS_ITS | Encounter Summary ---
Author Organization [facility] Address [address] [place] [address] Care Team Providers Care Splunk Dashboard Developer Name Role Phone Unavailable Primary Care Provider Unavailabl e Encounter Details Date Type Department Care Team (Latest Contact Info) Description 05/25/2006 7:39 EDT - 05/25/2006 11:59 EDT Hospital Encounter [facility] [address] [place] [address] Karli Almazan MD [address] [place] [address] Discharge Disposition: Auto Discharge Social History Tobacco [...] Procedure Name Priority Date/Time Associated Diagnosis Comments THYROID CASCADE Routine 05/25/2006 9:01 EDT IRON Routine 05/25/2006 9:01 EDT FOLATE Routine 05/25/2006 9:01 EDT FERRITIN Routine 05/25/2006 9:01 EDT VITAMIN B12 Routine 05/25/2006 9:01 EDT LIPID PROFILE (INCLUDES CHOLESTEROL, TRIGLYCERIDES, HDL, LDL) Routine 05/25/2006 9:01 EDT BASIC METABOLIC PANEL (BMP) Routine 05/25/2006 9:01 EDT RAD US BREAST SCREENING ONLY 05/25/2006 8:39 EDT documented in this encounter Results * THYROID CASCADE (05/25/2006 9:01 EDT) TSH 1.91 0.35 - 5.00 uIU/mL [facility] Comment: TSH cascade is not recommended for patients in which pituitary or hypothalamic disorders are suspected. 05/25/2006 9:01 EDT 05/25/2006 9:02 EDT Karli Almazan MD CHEMISTRY & BLOOD GA S ORDERABLES Final Result Performing Organization Address [facility] de Phone Number [facility] [address] [place] [address] * LIPID PROFILE (INCLUDES CHOLESTEROL, TRIGLYCERIDES, HDL, LDL) (05/25/2006 9:01 EDT) Cholesterol 201 mg/dl [facility] Comment: Desirable:<200 Borderline:200-239 High Risk:>cw=570 Triglycerides 76 35 - 160 mg/dl [facility] HDL 72 mg/dl [facility] Comment: Highly Desirable:>60 Desirable:35-60 High Risk:<35 LDL, Calculated 114 mg/dl [facility] Comment: Desirable:<130 Borderline:130-159 High Risk:>if=836 Chol/HDL Ratio 2.8 [facility] Fasting? Yes [facility] 05/25/2006 9:01 EDT 05/25/2006 9:02 EDT Karli Almazan MD CHEMISTRY & BLOOD GA S ORDERABLES Final Result Performing Organization Address [facility] Co de Phone Number [facility] [address] [place] [address] * IRON (05/25/2006 9:01 EDT) Iron 115 60 - 180 ug/dl [facility] 05/25/2006 9:01 EDT 05/25/2006 9:02 EDT Karli Almazan MD CHEMISTRY & BLOOD GA S ORDERABLES Final Result Performing Organization Address [facility] de Phone Number [facility] [address] [place] [address] * FOLATE (05/25/2006 9:01 EDT) Folate 11.5 ng/mL [facility] Comment: Deficient: ??Less than 3.4 ng/mL Indeterminate: ??3.4-5.4 ng/mL Normal: ??Greater than 5.4 ng/mL 05/25/2006 9:01 EDT 05/25/2006 9:02 EDT Karli Almazan MD CHEMISTRY & BLOOD GA S ORDERABLES Final Result Performing Organization Address [facility] de Phone Number [facility] [address] [place] [address] * FERRITIN (05/25/2006 9:01 EDT) Ferritin 22 10 - 291 ng/mL [facility] 05/25/2006 9:01 EDT 05/25/2006 9:02 EDT Karli Almazan MD CHEMISTRY & BLOOD GA S ORDERABLES Final Result Performing Organization Address [facility] de Phone Number [facility] [address] [place] [address] * (ABNORMAL) BASIC METABOLIC PANEL (05/25/2006 9:01 EDT) Sodium 140 136 - 145 mEq/L [facility] Potassium 4.3 3.5 - 5.0 mEq/L [facility] Chloride 106 96 - 110 mEq/L [facility] CO2 27 24 - 32 mEq/L [facility] BUN 7(L) 10 - 26 mg/dl [facility] Creatinine 0.8 0.7 - 1.5 mg/dl [facility] Calcium 8.5 8.5 - 10.5 mg/dl [facility] Calculated Calcium 8.7 8.5 - 10.5 mg/dl [facility] Glucose, Serum 88 70 - 100 mg/dl [facility] Fasting? Yes [facility] 05/25/2006 9:01 EDT 05/25/2006 9:02 EDT Karli Almazan MD CHEMISTRY & BLOOD GA S ORDERABLES Final Result Performing Organization Address [facility] de Phone Number [facility] [address] [place] [address] * VITAMIN B12 (05/25/2006 9:01 EDT) Vitamin B-12 297 250 - 1100 pg/ml [facility] 05/25/2006 9:01 EDT 05/25/2006 9:02 EDT Karli Almazan MD CHEMISTRY & BLOOD GA S ORDERABLES Final Result Performing Organization Address [facility] Phone Number [facility] [address] [place] [address] * RAD US BREAST SCREEN-HIGH RISK SCREEN ONLY (05/25/2006 8:39 EDT) Anatomical Region Laterality Modality Other 05/25/2006 8:39 EDT Narrative 05/19/2009 13:47 EDT SCREENING US: BILATERAL SCREENING ULTRASOUND COMPARISON: Baseline screening ultrasound 04/23/05. Both breasts were scanned. ??No suspicious solid lesions or cysts were seen in either breast. IMPRESSION: BI-RADS CATEGORY 1, NORMAL. RECOMMENDATION: As the patient refuses screening with mammography, we are recommending that she continue with annual screening ultrasound. D: ??05/25/06 T: ??05/26/06 /ceci Procedure Note Shailesh Patrick MD - 05/19/2009 SCREENING US: BILATERAL SCREENING ULTRASOUND COMPARISON: Baseline screening ultrasound 04/23/05. Both breasts were scanned. No suspicious solid lesions or cysts were seen in either breast. IMPRESSION: BI-RADS CATEGORY 1, NORMAL. RECOMMENDATION: As the patient refuses screening with mammography, we are recommending that she continue with annual screening ultrasound. /ceci us Karli Almazan MD IMG US ORDERABLES Fi nal Result documented in this encounter Visit Diagnoses Not on filedocumented in this encounter
--- OUTSIDE RECORDS SUMMARY | 2024-10-13 11:39 | XMS_ITS | Encounter Summary ---
Author Organization [facility] Address [address] [place] [address] Care Team Providers Care Supervisor Speech Name Role Phone Cesar Bae MD Primary Care Provider Encounter Details Date Type Department Care Team (Latest Contact Info) Description 08/17/2014 15:16 EDT - 08/17/2014 23:59 EDT Hospital Encounter [facility] Neurophysiology - [facility] ([address]) [address] [place] [address] Unknown, Provider, Pato Cosby MD Emg, Discharge Disposition: Home or Self Care Social [...] Code Departure Means Destination Home or Self Skilled Nursing documented in this encounter Procedure Notes * Pato Naqvi MD - 08/18/2014 1425 EDT [facility] ELECTRODIAGNOSTIC MEDICINE CONSULTATION - 08/17/2014 Radha Moe [address] [address] Dear Payal: Thank you for your referral of Jessica Connelly seen in electrodiagnostic consultation on 08/17/2014. She has noted cervical pain for the last 3 years and more recently has noted numbness in her right more than left upper extremity. Symptoms typically occur with repetitive use of the limbs as well as atnight. On clinical examination, she has negative Tinel's at the wrist. Phalen's is negative. No focal hypesthesia is seen. Power is normal throughout. Her past medical history is notable for migraine and chronic fatigue syndrome. Nerve Conduction Testing: The distal motor latency of the right median nerve was moderately prolonged and the distal motor latency of the left median nerve was mild to moderately prolonged. There wasmild slowing in the forearm segment of the right median motor conduction. The right ulnar motor study was normal. F latencies were normal in the right median and ulnar nerves. There was mild prolongation of the transcarpal sensory latency of the left median nerve and mild tomoderate prolongation of the transcarpal sensory latency of the right median nerve. Both median sensory amplitudes were modestly reduced in amplitude relative to the normal right ulnar sensory response. Needle examination was performed in the right biceps, triceps, pronator teres and 1st dorsal interosseous muscles as well as in the C7 paraspinal muscles. All muscles tested were normal. Interpretation: There is evidence of slowing in the transcarpal median conductions on the right more than the left. In this clinical setting, these findings are very consistent with carpal tunnel syndrome. No evidence of cervical radiculopathy was seen. Summary: Mild to moderate right and mild left median nerve lesions at the wrist, such as seen in carpal tunnel syndrome. Sincerely yours, Pato Naqvi MD 09 08 AM - Pato Naqvi MD ln Dictation ID: [id number] cc: Radha GARZA, [facility] [address] [place] [address] documented in this encounter Plan of Treatment Not on file documented as of this encounter Procedures Procedure Name Priority Date/Time Associated Diagnosis Comments ELECTROMYOGRAM - SCANNED 08/21/2014 9:21 EDT documented in this encounter Results * ELECTROMYOGRAM - SCANNED (08/21/2014 9:21 EDT) 08/21/2014 9:21 EDT us Scan 2 [employer] PROCEDURE/MINOR SURGICAL OR DERABLES Final Result documented in this encounter Visit Diagnoses Not on filedocumented in this encounter Care Teams Supervisor Speech Relationship Specialty Start Date End Date Cesar Bae MD [address] [place] [address] PCP - General 02/15/13 07/20/17 documented as of this encounter
--- OUTSIDE RECORDS SUMMARY | 2024-10-13 11:39 | XMS_ITS | Encounter Summary ---
Author Organization [facility] Address [address] [place] [address] Care Team Providers Care Shirt Folder Name Role Phone Karli Almazan MD Primary Care Provid er Encounter Details Date Type Department Care Team (Late st Contact Info) Description 12/05/2010 Abstract [facility] Dermatology 5th Floor [facility] [address] [place], [place] [id number] Gilson Morrison PA-C [address] [facility], Level [address] [place] [address] Social History Tobacco Use Types Packs/Day Years [...] on filedocumented in this encounter Care Teams Shirt Folder Relationship Specialty Start Date End Date Karli Almazan MD [address] [place] [id number] PCP - General 3/30/10 4/15/13 documented as of this encounter
--- OUTSIDE RECORDS SUMMARY | 2024-10-13 11:39 | XMS_ITS | Encounter Summary ---
Author Organization [facility] Address [address] [place] [address] Care Team Providers Care Professor Of Marketing Name Role Phone Cesar Bae MD Primary Care Provider [phone] Reason for Visit * Reason Onset Date Comments Referral Request 09/09/2013 perioperative educator Encounter Details Date Type Department Care Team (Late st Contact Info) Description 09/09/2013 Telephone [facility] Adult Primary Care - [place] [address] [place] [address] Cesar Bae MD [address] [place] [address] Referral Request (perioperative educator) Social History Tobacco Use Types Packs/Day Years [...] encounter Miscellaneous Notes * Telephone Encounter - Lennie Matias - 09/14/2013 6097 EST Faxed naturopathic referral to Jonas Alba ([phone]). * Telephone Encounter - Armida Su - 09/14/2013 1108 EST Referral on desk to sign * Telephone Encounter - Cesar Bae MD - 09/14/2013 1106 EST Completed * Telephone Encounter - Cesar Bae MD - 09/12/2013 1253 EST Why a DME order as this has nothing to do with DME? * Telephone Encounter - Tatiana Yeung - 09/12/2013 1012 EST This referral needs to be generated as a DME order please; I have destroyed the handwritten script * Telephone Encounter - Cesar Bae MD - 09/12/2013 0912 EST Completed * Telephone Encounter - Cesar Bae MD - 09/09/2013 1339 EST I will have to do this next week as there is no order in prism for this * Telephone Encounter - Zulema Stevens RN - 09/09/2013 1321 EST A right thumb that is not bending. * Telephone Encounter - Cesar Bae MD - 09/09/2013 1311 EST What is the diagnosis? * Telephone Encounter - Mikayla Price - 09/09/2013 1206 EST The fax number to Jonas Alba is [phone] * Telephone Encounter - Zulema Stevens RN - 09/09/2013 1204 EST Pt would like referral to perioperative educator Dr Jonas Alba. Advised I didn't think she needed referral which is what Dr Alba's office told her, but she stated she called her insurance company and they told her she did. She will cb to give [facility] fax number. * Telephone Encounter - Tatiana Yeung - 09/09/2013 1144 EST pls call pt to discuss documented in this encounter Plan of Treatment Not on file documented as of this encounter Visit Diagnoses Diagnosis Thumb pain- Primary Pain in limb documented in this encounter Orders Equipment Count Last Ordered Date First Orde red Date GENERIC DME ORDER 1 09/14/2013 documented in this encounter Care Teams Professor Of Marketing Relationship Specialty Start Date End Date Cesar Bae MD [address] [place] [address] PCP - General 02/15/13 07/20/17 documented as of this encounter
--- OUTSIDE RECORDS SUMMARY | 2024-10-13 11:39 | XMS_ITS | Encounter Summary ---
Author Organization [facility] Address [address] [place] [address] Care Team Providers Care Prior Authorization Nurse Name Role Phone Cesar Bae MD Primary Care Provider Encounter Details Date Type Department Care Team (Latest Contact Info) Description 08/27/2014 8:00 EDT - 08/27/2014 23:59 EDT Hospital Encounter [facility] [address] [place] [address] Cesar Bae MD [address] [place] [address] Discharge Disposition: Home or Self Care Social [...] as of this encounter Discharge Diagnoses Diagnosis V72.5 RADIOLOGICAL EXAM NEC[ICD-9-CM] documented in this encounter Medications at Time [...] Code Departure Means Destination Home or Self Assisted documented in this encounter Plan of Treatment Not on file documented as of this encounter Visit Diagnoses Not on filedocumented in this encounter Care Teams Prior Authorization Nurse Relationship Specialty Start Date End Date Cesar Bae MD [address] [place] [address] PCP - General 02/15/13 07/20/17 documented as of this encounter
--- OUTSIDE RECORDS SUMMARY | 2024-10-13 11:39 | XMS_ITS | Encounter Summary ---
Author Organization [facility] Address [address] [place] [address] Care Team Providers Care Bank Representative Name Role Phone Cesra Bae MD Primary Care Provider [phone] Reason for Visit * Reason Onset Date Comments Referral Request 08/09/2014 new referral re quest to Dr. Hart Encounter Details Date Type Department Care Team (Late st Contact Info) Description 08/09/2014 Telephone [facility] Adult Primary Care - Nursery [address] [place], [place] [phone] Cesar Bae MD [address] [place] [address] Referral Request (new referral request to Dr. Hart) Social History Tobacco Use Types Packs/Day Years [...] Telephone Encounter - Julianne Baron RN - 08/09/2014 1639 EDT [facility] who already faxed the referral Jessica is asking for to let her know it has been faxed. * Telephone Encounter - Lennie Matias - 08/09/2014 1313 EDT Reason for Call: Referral Request Summary/Symptoms: Pt needs a new referral generated to Dr. Hart for start date to be 08/01/14. Fax number: [phone]. Onset and Duration? n/a Appointment Offered? No Lennie Matias 08/09/2014 13:13 documented in this encounter Plan of Treatment Not on file documented as of this encounter Visit Diagnoses Not on filedocumented in this encounter Care Teams Bank Representative Relationship Specialty Start Date End Date Cesar Bae MD [address] [place] [phone] PCP - General 02/15/13 07/20/17 documented as of this encounter
--- OUTSIDE RECORDS SUMMARY | 2024-10-13 11:39 | XMS_ITS | Encounter Summary ---
Author Organization [facility] Address [address] [place] [address] Care Team Providers Care Visual Merchandising Coordinator Name Role Phone Karli Almazan MD Primary Care Provid er Encounter Details Date Type Department Care Team (Latest Contact Info) Description 04/12/2012 10:02 EDT - 04/12/2012 23:59 EDT Hospital Encounter [facility] [address] [place] [address] Giacomo Hall, [place] [address] [place] [address] Discharge Disposition: Home or Self Care Social [...] this encounter Medications at Time of Discharge MULTIVITAMINS (MULTIVITAMIN ORAL) Take by mouth daily. Vit, A,D,B,C,K OMEGA-3 FATTY ACIDS (OMEGA-3 ORAL) Take by mouth daily. SELENIUM ORAL Take by mouth daily. UNABLE TO FIND daily. Med Name: Pantethine, Serrapeptase VITAMIN B COMPLEX (VIT BALANCED B-100 ORAL) Take by mouth. 4 times weekly CALCIUM-MAGNESIU M ORAL Take by mouth. 2 MINERALS ORAL Take by mouth. 01 4 documented as of this encounter Discharge Disposition Disposition Code Departure Means Destination Home or Self Skilled Nursing documented in this encounter Plan of Treatment Not on file documented as of this encounter Procedures Procedure Name Priority Date/Time Associated Diagnosis Comments CERVICAL SPINE 4 OR MORE VIEWS 04/12/2012 10:39 EDT documented in this encounter Results * CERVICAL SPINE 4 OR MORE VIEWS (04/12/2012 10:39 EDT) Anatomical Region Laterality Modality Other 04/12/2012 10:3 9 EDT 04/12/2012 17:12 EDT Narrative 04/12/2012 17:12 EDT CERV SPINE 4 OR MORE VIEWS ??Apr 12, 2012 10:39:00 AM Signs and Symptoms/Comments: ??Cervical spondylosis, last films 10 years ago, compare for progression. New SX of alonzo forearm, hand numbness at night. Comparison: None Findings: Five views of the cervical spine reveal no fracture or malalignment. There is advanced degenerative disease at C5-C6 including marked disc space narrowing, anterior and posterior osteophyte formation, and mild degenerative kyphosis. Uncovertebral spurring and facet hypertrophy result in mild right neural foraminal narrowing at C5-C6. The prevertebral soft tissues are normal. Impression: Advanced C5-C6 degenerative disease, as above, including posterior osteophyte formation and mild right neural foraminal narrowing. If focal neurologic symptoms exist, MR recommended for further evaluation. I have personally reviewed the images and the above interpretation and agree with the findings. Procedure Note Kevin Donovan MD - 04/12/2012 CERV SPINE 4 OR MORE VIEWS Apr 12, 2012 10:39:00 AM Signs and Symptoms/Comments: Cervical spondylosis, last films 10 years ago, compare for progression. New SX of alonzo forearm, hand numbness at night. Comparison: None Findings: Five views of the cervical spine reveal no fracture or malalignment. There is advanced degenerative disease at C5-C6 including marked disc space narrowing, anterior and posterior osteophyte formation, and mild degenerative kyphosis. Uncovertebral spurring and facet hypertrophy result in mild right neural foraminal narrowing at C5-C6. The prevertebral soft tissues are normal. Impression: Advanced C5-C6 degenerative disease, as above, including posterior osteophyte formation and mild right neural foraminal narrowing. If focal neurologic symptoms exist, MR recommended for further evaluation. I have personally reviewed the images and the above interpretation and agree with the findings. us Giacomo Hall ND IMG DIAGNOSTIC IMAGING ORDERABLE S Final Result documented in this encounter Visit Diagnoses Not on filedocumented in this encounter Care Teams Visual Merchandising Coordinator Relationship Specialty Start Date End Date Karli Almazan MD [address] [place] [address] PCP - General 01/29/10 02/14/13 documented as of this encounter
--- OUTSIDE RECORDS SUMMARY | 2024-10-13 11:39 | XMS_ITS | Encounter Summary ---
Author Organization [facility] Address [address] [place] [address] Care Team Providers Care Principal Electrical Engineer Name Role Phone Karli Almazan MD Primary Care Provid er Encounter Details Date Type Department Care Team (Late st Contact Info) Description 04/03/2010 Abstract Used for ABSTRACTING Data [phone] Karli Almazan MD [address] [place], [place] [phone] Social History Tobacco Use Types Packs/Day Years [...] may reflect changes made after this encounter. UNABLE TO FIND daily. Med Name: Pantethine, Serrapeptase SELENIUM ORAL Take by mouth daily. MULTIVITAMINS (MULTIVITAMIN ORAL) Take by mouth daily. Vit, A,D,B,C,K OMEGA-3 FATTY ACIDS (OMEGA-3 ORAL) Take by mouth daily. SAFFLOWER OIL/LINOLEIC ACID,CO (CLA ORAL) Take by mouth daily. 0 added in this encounter Care Teams Principal Electrical Engineer Relationship Specialty Start Date End Date Karli Almazan MD [address] [place] [address] PCP - General 01/29/10 02/14/13 documented as of this encounter
--- OUTSIDE RECORDS SUMMARY | 2024-10-13 11:39 | XMS_ITS | Encounter Summary ---
Author Organization [facility] Address [address] [place] [address] Care Team Providers Care Respiratory Care Instructor Name Role Phone Karli Almazan MD Primary Care Provid er Encounter Details Date Type Department Care Team (Late st Contact Info) Description 04/02/2010 Results Only [facility] Dermatology 5th Floor [facility] [address] [place], [place] [phone] Renetta Davila, MAMTA [address] [phone] Social History Tobacco Use Types Packs/Day Years [...] Priority Date/Time Associated Diagnosis Comments SURGICAL PATHOLOGY Routine 04/02/2010 0:00 EDT documented in this encounter Results * SURGICAL PATHOLOGY (04/02/2010 0:00 EDT) Pathology Report: SURGICAL PATHOLOGY REPORT ? Reports generated via electronic interface contain original data; ? however they are lacking the format of the original report. ? Caution should be taken when reading/interpreti ng unformatted reports. ? Name: ? JESSICA ALVAREZ M ? Accession #: ? [id number] ? : ? 1960 (Age: 49) ??F ? Collect Date: ? 04/02/2010 ? Location: ? [facility] ? Receive Date: ? 04/02/2010 ? Provider: RENETTA M SOWLE PA ? Copy to: KARLI M ALMAZAN MD ? Final Pathologic Diagnosis: ? Skin of thigh, left posterior lateral, shave biopsy: ? - Melanocytic nevus, intradermal type. ? Document reviewed and electronically signed by: ? Keturah Rojas MD ? Report ??Date: 04/03/2010 15:54 ? By the signature above, the attending physician certifies that he/she has ? personally conducted a gross and/or microscopic examination of the described ? specimens and rendered or confirmed the above diagnosis. ? Specimen(s) Received: ? L posterior lateral thigh ? Clinical History: ? [place] & brown speckled approximately 5.0 ??6.0 mm asymmetric papule, R/O ? atypia vs other; Clinical diagnosis code: 239.2 ? Gross Description: ? Received in formalin labelled Maricel, Jessica and L posterior lateral ? thigh is a 0.7 x 0.6 x 0.1 cm shave biopsy of calle skin. ??There is a central ? ill-defined 0.4 x 0.3 x 0.1 cm pink-calle, focally crusted papule. ??The specimen ?? is trisected and entirely submitted in a single cassette. (Ivonne Cordova)/mpl ? End of Report ? [facility] 04/02/2010 04/02/2010 12: 08 EDT us Renetta OLEARY PATHOLOGY ORDERABLES Ruth robledo Result [facility] [address] [place] [address] documented in this encounter Visit Diagnoses Not on filedocumented in this encounter Care Teams Respiratory Care Instructor Relationship Specialty Start Date End Date Karli Almazan MD [address] [place] [address] PCP - General 01/29/10 02/14/13 documented as of this encounter
--- OUTSIDE RECORDS SUMMARY | 2024-10-13 11:39 | XMS_ITS | Encounter Summary ---
Author Organization [facility] Address [address] [place] [address] Care Team Providers Care Social Sciences Instructor Name Role Phone Karli Almazan MD Primary Care Provid er Reason for Visit * Reason Comments Follow-up Skin check; AK on fa ce Encounter Details Date Type Department Care Team (Late st Contact Info) Description 12/09/2010 10:00 EST Office Visit [facility] Dermatology 5th [address] [address] Gilson Morrison PA-C [address] [place] [address], [address] [place] [address] Actinic keratosis (Primary Dx) Social History Tobacco Use Types [...] * Patient Instructions* Gilson Morrison PA-C - 12/09/2010 10:21 EST DERMATOLOGY - WOUND CARE INSTRUCTIONS The DRESSING/BANDAID should remain in place for 24 hours. If the dressing comes loose before then, re-tape it carefully or change the bandage. You may shower after 24 hours; remove the bandage and replace it after the shower. Do not let the forceful stream of the shower hit your wound directly. If you bathe in a tub, the bath should be brief. DISCOMFORT: Postoperative pain is usually minimal. Extra-Strength Tylenol, two tablets every four hours, usually relives any pain you may have. Do not take Ibuprofen (Motrin, Advil), Naprosyn (Aleve), and Aspirin or aspirin- containing products as they increase the chance of bleeding for 5 days after your surgery , unless approved by your provider. BLEEDING: Attention has been given to your wound to prevent bleeding. You may notice a small amountof blood on the edges of the dressing the first day and this is NORMAL. Keep your head elevated for48 hours if the surgery was on the face or scalp. If the bleeding seems persistent and soils the dressing, apply firm, steady pressure over the dressing with gauze or a wash cloth for fifteen minutes. This is usually adequate treatment. If bleeding persists, call our office at or go to the nearest Walk in Clinic or Emergency Room. ACTIVITY: Relax and limit your physical activity for the first 48 hours after the procedure. Physical activity should also be limited if the excision included the shoulder, upper arm, and/or legs forthe next 7-10 days. WOUND CARE: ?? Wash hands with soap and water before changing the dressing. ?? Change the dressing daily and when it becomes wet The suture line should be cleansed daily with tap water. You may gently loosen any crusts with a cotton swab. Pat dry. The first day the wound may be tender and may bleed slightly or ooze a small amount clear fluid. For stubborn crusting, place a wet cloth over the wound for five minutes to soak and loosen crusts. Apply a thin layer of Vaseline over the wound. It is not recommended to use triple antibiotic ointment or other ointments as they can cause allergic reactions and do not prevent infection. Cover the wound with a Telfa (non-stick) dressing or gauze pad and a piece of paper tape. It is important to keep the wound covered. If you have sutures; the provider will inform you as to when the sutures need removed. Generally this is between 7-14 days depending on the area of the wound. If you had Liquid Nitrogen Therapy, the area may swell, form blisters and throb for 24 hours. The scabs that form should fall off within 14-21 days. It is normal to see blood in the blisters. If the blisters open, apply Vaseline until the area has healed. APPEARANCE: There may be swelling and bruising around the wound, especially near the eyes. For yourcomfort, you may apply warm, moist soaks to the bruises a few times a day, starting the third day after the procedure. You may also experience itching or ???pulling?? sensations around the wound as it heals. Healing time depends on the size, depth are of the wound. If you have concerns please callour office. If the procedure requires sutures, the suture line will be dark pink at first and the edges of the wound will be reddened. This will lighten up day by day and will be less tender. CONTACT THE OFFICE: ?? If the wound becomes increasingly red, warm to touch, increased pain, drainage with a foul odor,rapid swelling of the wound and/or if you develop a fever or chills, please call our office immediately or . 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 ?? Make clothing a [...] coverage ?? Bullfrog - SPF 36 o ???Cranford?? and ???Sweatproof?? o Alcohol based - goes on quickly and good for skin with hair Good ???everyday?? moisturizer for the face: ?? Oil of Olay Complete Sun Protection - SPF 15 ?? Cetaphil daily facial moisturizer - SPF 15 ?? La Anam-Posay Anthelios SX - SPF 15 documented in this encounter Progress Notes * Coty Laws - 12/09/2010 1042 EST A complete 12 point review of systems was obtained and reviewed. All systems are negative except for: night sweats,headaches,urinating at night,muscle aches,neck pain,difficulty sleeping,fall. Coty Laws 12/09/2010 10:41 Reviewed Gilson Morrison PA-C 10:53 * Gilson Morrison PA-C - 12/09/2010 1020 EST Diagnosis: 1.) Actinic keratosis 2.) Recurrent nevus Subjective: Luis presents for follow-up today, last seen here by Kimberly Spencer PA-C in 04/2010. At that visit, primary dermatologic diagnosis was Actinic keratosis On face. Treatments recommended included Carac cream. Response to treatment was unknown, as patient did not fill Rx, is not interested in pursuing that treatment: I don't want chemicals in my body. New concerns today include: Repigmentation of nevus on left thigh, which was biopsied at last visithere, and found to be benign on pathology. For a complete past medical history, current medications, medication allergies, review of systems, family history and social history, please see the Dermatology intake sheet in chart. Objective: Complete Cutaneous Exam On physical examination, in general, Ms. Connelly is a female who is well-groomed, well-nourished and appears stated age and is is in no apparent distress. She is alert and oriented to person, place andtime. She has Amin type II skin. Complete cutaneous examination of the head, including the scalp and face, neck, back, chest, including breasts and axillae, abdomen, groin, buttocks, intertrigi nous areas, and all four extremities were examined. The examination was normal with the addition ofthe following comments: Lesion A: Location: Right adventist x 1; Left nasal tip x 1; Left upper cutaneous lip Lesion Color: pink, erythematous Lesion Type: macules Lesion Description: Gritty and keratotic Lesion B: Location: thigh(s) on left; posterior aspect of Lesion Color: brown Lesion Type: macule Lesion Description: Jagged edges, 2x3mm, centered on well-healed biopsy scar A/P: 1.) Actinic keratosis, 3 lesions. PLAN: Treatment by LN cryotherapy today. See procedure note belowfor details. The nature of sun-induced photo-aging and skin cancers is discussed. Sun avoidance, protective clothing, and the use of 30-SPF sunscreens is advised. Observe closely for skin damage/changes, and call if such occurs. CRYOSURGERY PROCEDURE NOTE PATIENT INFORMATION: Jessica Connelly [id number] 1960 [id number] DATE OF PROCEDURE: 12/09/2010 SURGEON: Gilson Morrison PA-C BROOM MAKER: INDICATIONS: SITE/LESION TYPE/DIAGNOSIS: Lesion(s) A: Location: Right adventist x 1; Left nasal tip x 1; Left upper cutaneous lip Lesion Type/Diagnosis: 3 actinic keratosis(es) Liquid nitrogen cryosurgery was applied to a total of 3 lesion(s) on the above stated locations. The expected reaction and healing course were discussed, as well as the possibility of incomplete resolution and/or permanent dyspigmentation. The indication, risks, benefits and alternatives to this pro cedure were discussed in detail with the patient and all questions were answered. Verbal wound care instructions were given. COMPLICATIONS: none Gilson Morrison PA-C 12/09/2010 10:19 2.) Recurrent nevus, left posterior thigh, status post skin biopsy on 04/2010. PLAN: Patient reassurance; no further treatment today. Follow up here in 1 year, sooner if needed. documented in this encounter Plan of Treatment Not on file documented as of this encounter Visit Diagnoses Diagnosis Actinic keratosis- Primary documented in this encounter Care Teams Social Sciences Instructor Relationship Specialty Start Date End Date Karli Almazan MD [address] [place] [address] PCP - General 01/29/10 02/14/13 documented as of this encounter
--- OUTSIDE RECORDS SUMMARY | 2024-10-13 11:39 | XMS_ITS | Encounter Summary ---
Author Organization [facility] Address [address] [place] [address] Care Team Providers Care Food Service Substitute Name Role Phone Karli Almazan MD Primary Care Provid er Reason for Referral * Consult, Test and Treat (Routine) - Closed Specialty Diagnoses / Procedures Referred By Abby de paz Referred To Contact Diagnoses Rotator cuff tendinitis Karli Almazan MD Phone: tel: fax: Referral ID Status Reason Start Date Expiration Date V isits Requested Visits Authorized [id number] Closed Specialty Services Required 04/23/2010 1 1 Question Answer Reason for Request: Rotator cuff tendonitis with impingement features. Needs PT evaluation and treatment Reason for Visit * Reason Comments Annual Exam Encounter Details Date Type Department Care Team (Late st Contact Info) Description 04/23/2010 15:15 EDT Office Visit [facility] Adult [facility] - [place] [address] [place] [address] Karli Almazan MD [address] [place] [phone] Rotator cuff tendinitis (Primary Dx); Health maintenance examination Discharge Disposition: Auto Discharge Social History Tobacco [...] Reading Time Taken Comments Blood Pressure 120/70 04/23/2010 1526 EDT Pulse 60 04/23/2010 1526 EDT Temperature 36.2 ??C (97.1 ??F) 04/23/2010 1526 EDT Respiratory Rate - - Oxygen Saturation - - Inhaled Oxygen Concentration - - Weight 68.9 kg (152 lb) 04/23/2010 1526 EDT Height 167.6 cm (5' 6) 04/23/2010 1526 EDT Body Mass Index 24.53 04/23/2010 1526 EDT documented in this encounter Discharge Disposition Disposition Code Departure Means Destination Auto Discharge documented in this encounter Progress Notes * Karli Almazan MD - 04/23/20102203 EDT Subjective: Patient ID: Jessica Connelly is an 49 y.o. female. Chief Complaint Patient presents with ??? Annual Exam HPI Here for physical Current issues: Main issue is shoulder. Right shoulder pain for past few months. Does not recall specific injury. nDoes garden a lot. Painful if moves. Cannot use to buckle bra/scratch back. Can get into comfortable position but paiful if shifts. Patient Active Problem List Diagnoses Code ??? Migraines 346.90E ??? Systolic murmur 785.2BX ??? Chronic fatigue syndrome 780.71 Past Medical History Diagnosis Date ??? Candidiasis per patient, logan sensitivity ??? Pneumonia ??? Appendicitis Current outpatient prescriptions prior to encounter Medication Sig Dispense Refill [...] Antibiotics trigger systemic logan per patient. Avoids. Family History Problem Relation ??? * Father Joe Tinoco History Social History ??? Marital Status: Spouse Name: N/A Number of Children: N/A ??? Years of Education: N/A Social History Main Topics ??? Tobacco Use: Quit smoked when she was 12 years old and stopped at the age of 14 ??? Alcohol Use: Not on file ??? Drug Use: Not on file ??? Sexually Active: Not on file Other Topics Concern ??? Not on file Social History Narrative Lives with and 17 year old son--going to [employer] in the Fall. 22y son just graduated. She retired from work this spring and plans to write a book and travel. taking Sabat[employer]. Regular exercise. 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 Review of Systems Constitutional: Energy persistently poor. Eyes: Negative. Respiratory: Negative. Cardiovascular: Positive for palpitations. Palpitations last <30 seconds Gastrointestinal: Negative. Genitourinary: Menses less regular. Avoids hot flashes with naturopathic meds. Musculoskeletal: Right shoulder pain Neurological: Positive for headaches. If uses arms long time, then can feel numbness down arms. NO travis hand weakness. Endo/Heme/Allergies: Negative. Psychiatric/Behavioral: Negative. - See HPI Objective: BP 120/70 Pulse 60 Temp(Src) 36.2 ??C (97.1 ??F) (Tympanic) Ht 1.676 m (5' 6) Wt 68.947 kg(152 lb) Physical Exam Constitutional: She appears well-developed and well-nourished. HENT: Right Ear: External ear normal. Left Ear: External ear normal. Mouth/Throat: Oropharynx is clear and moist. No oropharyngeal exudate. tympanic membranes clear bilaterally Eyes: Conjunctivae are normal. Neck: No thyromegaly present. Cardiovascular: Normal rate, regular rhythm and normal heart sounds. Pulmonary/Chest: Effort normal and breath sounds normal. Abdominal: Soft. Bowel sounds are normal. She exhibits no distension and no mass. No tenderness. Genitourinary: External vaginal exam within normal limits. Pap due next annual Musculoskeletal: She exhibits no edema. Right shoulder--pain with abduction at 90 degrees, both passive and active. Cannot scratch back, additional RTC testing limited by pain Lymphadenopathy: She has no cervical adenopathy. Skin: Skin is warm and dry. No rash noted. Psychiatric: She has a normal mood and affect. Her behavior is normal. Thought content normal. Assessment and Plan: Jessica was seen today for annual exam. Diagnoses and associated orders for this visit: - Rotator cuff tendinitis - Ambulatory consult physical therapy - Health maintenance examination - Vitamin b12 -- Future - Vitamin d (25,oh) -- Future - T3, free -- Future - Tsh -- Future - Ferritin -- Future Will do labs today, TSH/T3 per her request, others to follow up on borderline labs inpast. Due for LPR, Pap next year. Avoids mammograms. Due for colo. Failed to review with pt at [facility], letter sent with recommendation. documented in this encounter Plan of Treatment Scheduled Referrals Name Type Priority Associated Diagnoses Orde r Schedule AMB CONSULT PHYSICAL THERAPY Outpatient Referral Routine Rotator Cuff Tendinitis Ordered: 04/23/2010 documented as of this encounter Procedures Procedure Name Priority Date/Time Associated Diagnosis Comments VITAMIN D (25,OH) Routine 04/23/2010 16: 31 EDT Health maintenance examination T3 FREE Routine 04/23/2010 16:31 EDT Health maintenance examination TSH Routine 04/23/2010 16:31 EDT Health maintenance examination FERRITIN Routine 04/23/2010 16:31 EDT Health maintenance examination VITAMIN B12 Routine 04/23/2010 16:31 EDT Health maintenance examination documented in this encounter Results * FERRITIN (04/23/2010 16:31 EDT) Ferritin 19 10 - 291 ng/mL [facility] Blood specimen (specimen) 04/23/2010 16:31 EDT 04/23/2010 16:32 EDT Karli Almazan MD CHEMISTRY & BLOOD GA S ORDERABLES Final Result Performing Organization Address City/[facility]/ZIP Co de Phone Number [facility] [address] [place] [address] * TSH (04/23/2010 16:31 EDT) Pathologist [facility] TSH 0.86 0.35 - 5.00 uIU/ml [facility] Blood specimen (specimen) 04/23/2010 16:31 EDT 04/23/2010 16:32 EDT us Karli Almazan MD CHEMISTRY & BLOOD GA S ORDERABLES Final Result Performing Organization Address [facility] [[email or web address]] Co de Phone Number [facility] [address] [place] [address] * T3 FREE (04/23/2010 16:31 EDT) Pathologist [facility] T3, Free 2.5 2.3 - 4.2 pg/mL [facility] Blood specimen (specimen) 04/23/2010 16:31 EDT 04/23/2010 16:32 EDT us Karli Almazan MD CHEMISTRY & BLOOD GA S ORDERABLES Final Result Performing Organization Address [facility] de Phone Number [facility] [address] [place] [address] * VITAMIN D (25,OH) (04/23/2010 16:31 EDT) Pathologist [facility] 25OH Vitamin D Tot 22.1 ng/ml [facility] Comment: Reference Range: <10 ng/ml: Deficient 10-30 ng/ml: Insufficient 30-100 ng/ml: Sufficient >100 ng/ml: Toxic Blood specimen (specimen) 04/23/2010 16:31 EDT 04/23/2010 16:32 EDT us Karli Almazan MD CHEMISTRY & BLOOD GA S ORDERABLES Final Result Performing Organization Address City/[facility]/ZIP Co de Phone Number [facility] [address] [place] [address] * VITAMIN B12 (04/23/2010 16:31 EDT) Vitamin B-12 622 211 - 911 pg/ml [facility] Blood specimen (specimen) 04/23/2010 16:31 EDT 04/23/2010 16:32 EDT us Karli Almazan MD CHEMISTRY & BLOOD GA S ORDERABLES Final Result Performing Organization Address [facility] [[email or web address]] Co de Phone Number [facility] [address] [place] [address] documented in this encounter Visit Diagnoses Diagnosis Rotator cuff tendinitis- Primary Disorders of bursae and tendons in shoulder region, unspecified Health maintenance examination Routine general medical examination at a health care facility documented in this encounter Discontinued Medications Medication Sig Discontinue Reason Start Date End Da te SAFFLOWER OIL/LINOLEIC ACID,CO (CLA ORAL) Take by mouth daily. Error 04/23/2010 documented as of this encounter Care Teams Food Service Substitute Relationship Specialty Start Date End Date Karli Almazan MD [address] [place] [id number] PCP - General 01/29/10 02/14/13 documented as of this encounter
--- OUTSIDE RECORDS SUMMARY | 2024-10-13 11:40 | XMS_ITS | Encounter Summary ---
Author Organization [facility] Address [address] [place] [address] Care Team Providers Care Hand Wrapper Operator Name Role Phone Karli Almazan MD Primary Care Provid er Encounter Details Date Type Department Care Team (Late st Contact Info) Description 08/16/2002 Results Only [facility] - [facility] [address] [place] [address] India Mello MD [address] [place] [address] Social History Tobacco Use Types Packs/Day Years [...] Procedure Name Priority Date/Time Associated Diagnosis Comments HDL Routine 08/16/2002 10:46 EDT CHOLESTEROL Routine 08/16/2002 10:46 EDT COMPREHENSIVE METABOLIC PANEL (CMP) Routine 08/16/2002 10:46 EDT documented in this encounter Results * HDL (08/16/2002 10:46 EDT) HDL 76 mg/dl [facility] Comment: Highly Desirable:>60 Desirable:35-60 High Risk:<35 08/16/2002 10:4 6 EDT 08/16/2002 10:47 EDT India Mello MD CHEMISTRY & BLOOD GAS ORDERA BLES Final Result [facility] [address] [place] [address] * (ABNORMAL) COMPREHENSIVE METABOLIC PANEL (CMP) (08/16/2002 10:46 EDT) [facility] Potassium 5.0 3.5 - 5.0 mEq/L [facility] Sodium 139 136 - 145 mEq/L [facility] Chloride 103 96 - 110 mEq/L [facility] CO2 27 24 - 30 mEq/L [facility] Total Alkaline Phosphatase 54 38 - 126 U/L [facility] Bilirubin, Total 0.6 0.2 - 1.3 mg/dl [facility] AST 20 8 - 50 U/L [facility] ALT 34 15 - 75 U/L [facility] Albumin 4.7 3.0 - 5.5 g/dl [facility] Total Protein 7.7 6.0 - 8.5 g/dl [facility] Creatinine 0.7 0.7 - 1.5 mg/dl [facility] BUN 9(L) 10 - 26 mg/dl [facility] Calcium 9.1 8.5 - 10.5 mg/dl [facility] Calculated Calcium 8.8 8.5 - 10.5 mg/dl [facility] Glucose, Serum 90 70 - 110 mg/dl [facility] Albumin/Globulin Ratio 1.6 [facility] 08/16/2002 10:4 6 EDT 08/16/2002 10:47 EDT India Mello MD CHEMISTRY & BLOOD GAS ORDERA BLES Final Result Performing Organization Address City/[facility]/ZIP Co de Phone Number [facility] [address] [place] [address] * CHOLESTEROL (08/16/2002 10:46 EDT) Cholesterol 208 mg/dl [facility] Comment: Desirable:<200 Borderline:200-239 High Risk:>uh=283 08/16/2002 10:4 6 EDT 08/16/2002 10:47 EDT us India Mello MD CHEMISTRY & BLOOD GAS ORDERA BLES Final Result [facility] [address] [place] [address] documented in this encounter Visit Diagnoses Not on filedocumented in this encounter Care Teams Hand Wrapper Operator Relationship Specialty Start Date End Date Karli Almazan MD [address] [place] [id number] PCP - General 01/29/10 02/14/13 documented as of this encounter
--- OUTSIDE RECORDS SUMMARY | 2024-10-13 11:40 | XMS_ITS | Encounter Summary ---
Author Organization [facility] Address [address] [place] [address] Care Team Providers Care Child Care Name Role Phone Unavailable Primary Care Provider Unavailabl e Encounter Details Date Type Department Care Team (Late st Contact Info) Description 05/08/2006 Before PRISM Converted Visit (Maple) [facility] - Maple conversion [address] [place] [address] Karli Almazan MD [address] [place], [place] [id number] Social History Tobacco Use Types Packs/Day Years Used Date Smoking Tobacco: Never Assessed Comments Unknown Sex and Gender Information Value Date Recorded Sex Assigned at Not on file Legal Sex Female 18:28 EST Gender Identity Female 01/14/2024 16:04 EDT Sexual Orientation Not on file documented as of this encounter Progress Notes * Karli Almazan MD - 10/26/2009 [address] [id number] PROGRESS/FOLLOWUP NOTE - 05/08/2006 [age] year-old female for physical exam as well as to discuss her generally low energy. Current issues: Generally low energy: Ms. Connelly reports that she has been diagnosed with chronic fatigue syndrome in the past. She tells me today that she has generally low energy. She does exercise a lot swimming on most days as well as staying active doing things such as cross country skiing and running. She finds that she feels more short of breath than she would like to be with these activities, however she is able to push through and do them anyway. She does note that she has some difficulty sleeping as well, wakes up at about 4 oin the morning and is unable to go back to sleep. She has also had some gradual weight gain despite portion control, having a good diet and exercising almost daily. She has had multiple migraines recently: She has had migraines in the past and she has found that they have increased in frequency over the past few years. She does light treatment which she finds vladimir very helpful in aborting the migraines as long as she does them soon enough. She does not have any associated neuro symptoms when she has them she does have some occasional nausea and vomiting with them. Review of systems: HEENT: general decline in vision requiring reading glasses and headaches as discussed above. Respiratory: as discussed above. Cardiovascular: She did have some palpitations in the past but not if she takesher magnesium. Otherwise no chest pain or pressure with exertion and no leg pain with exertion. GI: Negative. : LMP about 4-5 weeks ago. It has been irregular. She also has been having heavy periods when she gets them. She does not have significant amount of vaginal dryness. She does have occasional stress incontinence. She is not doing Kegel exercises. She does have occasional night sweats/hot flashes when she is not exercising. Breast: negative. Skin: negative. Musculoskeletal: has had some ongoing back neck pain and right arm numbness but no weakness. She has beenseeing a chiropractor which has helped significantly and as long as she is seeing the chiropractor does not have problems. Neuro: As discussed above. Constitutional: As discussed above. Mood: Good aslong as she uses her light treatment. Past medical history, past surgical history: Significant for migraine headaches, history of a heartmurmur with palpitations and a normal echo in 2001. Distant history of pneumonia diagnosis of chronic fatigue syndrome, fat intolerance and ???logan sensitivity.?? Mediations: She is not currentlytaking any prescription medications. She does take some supplements. Allergies: Penicillin leads tohives. Various antibiotics lead to systemic logan. She does not identify which antibiotics those are. Codeine leads to nausea. Family history: Dad is status post CABG times two in his early 70s. He also had a cerebral hemorrhage in the context of taking a lot of fish oil. He had von Willebranddisease. Her sons both have mildiron deficiency and are vegetarians as she is. Social history: She lives with her and reports that they do have some disagreements but herrelationship is safe. She has two sons age 19 and 14. She is a vegetarian and notes she is very careful about her protein consumption. She exercises on most days by swimming or running and stays generally very active. She smoked in the distant past although nor currently and this was only a little bit. She does not drink caffeine. She drinks very minimal amounts of alcohol. It has never been a problem for her personally. O: Blood pressure 120/62, heart rate of 64. Weight of 151 pounds. Generally: She is well-appearing,pleasant and conversational. HEENT: Oral pharynx is clear. No cervical or supraclavicular lymphadenopathy. No thyromegaly. Respiratory: lungs clear to auscultation bilaterally, moving good air throughout. Breasts: No focal masses, nipple discharge or axillary lymphadenopathy. Cardiovascular: regular rate and rhythm. No murmurs, gallops or rubs. No carotid bruits. Abdomen: Soft, nontender, nondistended, no hepatosplenomegaly. Pelvic: deferred as she had a normal Pap smear done in December of 2004. Lower extremities: No lower extremity edema. DP and PT 2+ bilaterally. Skin: No concerning lesions. A+P: 1. Fatigue and lack of energy: It is possible that this is in keeping with her diagnosis of chronic fatigue syndrome however we will check to make sure she is not anemic as well as check her iron, B12 and folate level given her vegetarianism. We will also check a TSH and Free T4 and a basic metabolic panel. 2. General health maintenance: She is due for a fasting set of lipids, especially in the context ofher family history. She is not willing to get mammograms as she is concerned about radiation to herbreasts, apparently had multiple conversations with Dr. Mello about this who ultimately ordered a b ilateral breast ultrasound about a year ago and we can continue to dothis for screening although I did explain to her that this is not a standard way of screening and we could be missing something. She had a Pap smear in December of 2004 which was normal so wonbe due for another one until 2007. Sheis up to date on her tetanus done in 2003. Finally, we did discuss advance directives and I gave her a form to fill out with her . Addendum: Folate normal, B12 borderline and will RV for MMA. BMP normal. TSH normal at 1.91. Iron and Ferritin normal. Lipids good with TG 76, HDL 72. LDL 114. Breast ultrasound normal. Signed by Karli Almazan MD 06/01/2006 20:56 Rupal Egan MD Karli Almazan MD - Karli Almazan MD A - evp and chief operating officer Job ID: [id number] Document ID: [id number] cc: documented in this encounter Plan of Treatment Not on file documented as of this encounter Visit Diagnoses Not on filedocumented in this encounter
--- OUTSIDE RECORDS SUMMARY | 2024-10-13 11:40 | XMS_ITS | Encounter Summary ---
Author Organization [facility] Address [address] [place] [address] Care Team Providers Care Roller Man Name Role Phone Unavailable Primary Care Provider Unavailabl e Encounter Details Date Type Department Care Team (Late st Contact Info) Description 04/19/2004 9:06 EDT Hospital Encounter [facility] - Other [address] [place] [address] India Mello MD [address] [place] [address] Social History Tobacco Use Types Packs/Day Years [...] Comments CERVICAL SPINE 4 OR MORE VIEWS Routine 04/19/2004 17:14 EDT documented in this encounter Results * CERVICAL SPINE 4 OR MORE VIEWS (04/19/2004 17:14 EDT) Anatomical Region Laterality Modality Other 04/19/2004 17:1 4 EDT Narrative 07/16/2009 11:08 EDT cronic neck painupper ext numbness r/o narrowing, disc disease,oa CERVICAL SPINE, 04/19/04 AP, lateral, and oblique views. There is severe degenerative disk disease at C5-C6 resulting in severe neural foraminal bony encroachment on the right and moderate neural foraminal bony encroachment on the left. No displaced fracture is seen. There is minimal retrolisthesis of C5. /[facility] Procedure Note Luke Landin MD - 07/16/2009 cronic neck painupper ext numbness r/o narrowing, disc disease,oa CERVICAL SPINE, 04/19/04 AP, lateral, and oblique views. There is severe degenerative disk disease at C5-C6 resulting in severe neural foraminal bony encroachment on the right and moderate neural foraminal bony encroachment on the left. No displaced fracture is seen. There is minimal retrolisthesis of C5. /[facility] India Mello MD IMG DIAGNOSTIC IMAGING ORDER JASMINE Final Result documented in this encounter Visit Diagnoses Not on filedocumented in this encounter
--- OUTSIDE RECORDS SUMMARY | 2024-10-13 11:40 | XMS_ITS | Encounter Summary ---
Author Organization [facility] Address [address] [place] [address] Care Team Providers Care Hemmer Automatic Name Role Phone Unavailable Primary Care Provider Unavailabl e Encounter Details Date Type Department Care Team (Late st Contact Info) Description 12/25/2004 14:55 EST Hospital Encounter [facility] - Other [address] [place] [address] India Mello MD [address] [place] [address] Social History Tobacco Use Types Packs/Day Years [...]
--- OUTSIDE RECORDS SUMMARY | 2024-10-13 11:40 | XMS_ITS | Encounter Summary ---
Author Organization [facility] Address [address] [place] [address] Care Team Providers Care Divider Operator Name Role Phone Unavailable Primary Care Provider Unavailabl e Encounter Details Date Type Department Care Team (Late st Contact Info) Description 06/22/2002 13:42 EDT Hospital Encounter [facility] - Other [address] [place] [address] India Mello MD [address] [place] [address] Unknown, Provider, Social History Tobacco Use Types Packs/Day Years [...] Procedure Name Priority Date/Time Associated Diagnosis Comments FUNGUS CULTURE/SMEAR, RESPIRATORY Routine 06/22/2002 15:18 EDT BACTERIAL CULTURE/SMEAR, RESPIRATORY Routine 06/22/2002 15:18 EDT HEMAGRAM & DIFF Routine 06/22/2002 15:09 EDT GROUP A STREP CULTURE Routine 06/22/2002 14:32 EDT RAPID STREP Routine 06/22/2002 14:32 EDT documented in this encounter Results * FUNGUS CULTURE/SMEAR, RESPIRATORY (06/22/2002 15:18 EDT) Specimen Description Sputum [facility] Fungal Smear No fungi seen [facility] Result No fungi isolated [facility] Report Status Final [id number] [facility] 06/22/2002 15:1 8 EDT 06/22/2002 17:40 EDT India Mello MD MICROBIOLOGY - GENERAL ORDER JASMINE Final Result Performing Organization Address [facility] de Phone Number [facility] [address] [place] [address] * BACTERIAL CULTURE/SMEAR, RESPIRATORY (06/22/2002 15:18 EDT) Specimen Description Sputum [facility] Gram Smear Result Mod Polys Few Squamous epithelial cells No alveolar macrophages seen Few Mixed gram positive and gram negative organisms Mucus present [facility] Result Usual isis-pharyngeal pavel [facility] Report Status Final [id number] [facility] 06/22/2002 15:1 8 EDT 06/22/2002 17:40 EDT India Mello MD MICROBIOLOGY - GENERAL ORDER JASMINE Final Result Performing Organization Address [facility] de Phone Number [facility] [address] [place] [address] * (ABNORMAL) HEMAGRAM & DIFF (06/22/2002 15:09 EDT) WBC 8.38 4.0 - 12.4 K/cmm [facility] RBC 4.52 3.86 - 5.04 M/cmm [facility] Hemoglobin 14.5 11.6 - 15.2 gm/dl [facility] HCT 42.3 34.9 - 44.4 % [facility] MCV 94 81 - 98 fl [facility] MCH 32.2 26.7 - 33.3 pg [facility] MCHC 34.3 32.1 - 35.9 gm/dl [facility] PLT 283 141 - 320 K/cmm [facility] RDW-CV 12.0 11.7 - 14.6 % [facility] % Neutrophils 59.2 45.5 - 79.7 % [facility] % Lymphocytes 27.7 15.0 - 46.8 % [facility] % Monocytes 7.1 1.8 - 12.0 % [facility] % Eosinophils 5.9 0.6 - 6.9 % [facility] % Basophils 0.1(L) 0.2 - 1.4 % [facility] ABS Neutrophils 4.97 2.20 - 8.85 K/cmm [facility] ABS Lymphs 2.32 1.09 - 3.30 K/cmm [facility] ABS Monocytes 0.60 0.1 - 0.8 K/cmm [facility] ABS Eosinophils 0.49 0.03 - 0.61 K/cmm [facility] ABS Basophils 0.01 0.01 - 0.11 K/cmm [facility] Type of Diff: Automated [facility] 06/22/2002 15:0 9 EDT 06/22/2002 15:10 EDT India Mello MD HISTORICAL LAB FOR SQ LOAD F inal Result [facility] [address] [place] [address] * PHARYNGITIS CULTURE (06/22/2002 14:32 EDT) Specimen Description Throat [facility] Result NO GROUP A BETA STREPTOCOCCI ISOLATED [facility] Report Status Final [id number] [facility] 06/22/2002 14:3 2 EDT 06/22/2002 14:33 EDT us India Mello MD MICROBIOLOGY - GENERAL ORDER JASMINE Final Result Performing Organization Address [facility] Co de Phone Number [facility] [address] [place] [address] * RAPID STREP (06/22/2002 14:32 EDT) Rapid Strep [facility] 06/22/2002 14:3 2 EDT 06/22/2002 14:33 EDT us India Mello MD MICROBIOLOGY - GENERAL ORDER JASMINE Final Result Performing Organization Address [facility] de Phone Number [facility] [address] [place] [address] documented in this encounter Visit Diagnoses Not on filedocumented in this encounter
--- OUTSIDE RECORDS SUMMARY | 2024-10-13 11:40 | XMS_ITS | Encounter Summary ---
Author Organization [facility] Address [address] [place] [address] Care Team Providers Care County Home Demonstrator Name Role Phone Unavailable Primary Care Provider Unavailabl e Encounter Details Date Type Department Care Team (Late st Contact Info) Description 09/02/2002 11:02 EST Hospital Encounter [facility] - Maple conversion [address] [place] [address] India Mello MD [address] [place] [address] Social History Tobacco Use Types Packs/Day Years [...]
--- OUTSIDE RECORDS SUMMARY | 2024-10-13 11:40 | XMS_ITS | Encounter Summary ---
Author Organization [facility] Address [address] [place] [address] Care Team Providers Care Ventilation Mechanic Name Role Phone Unavailable Primary Care Provider Unavailabl e Encounter Details Date Type Department Care Team (Late st Contact Info) Description 05/08/2006 8:49 EDT Hospital Encounter [facility] - Maple conversion [address] [place] [address] Karli Almazan MD [address] [place] [address] Social History Tobacco Use Types Packs/Day Years [...]
--- OUTSIDE RECORDS SUMMARY | 2024-10-13 11:40 | XMS_ITS | Encounter Summary ---
Author Organization [facility] Address [address] [place] [address] Care Team Providers Care Financial Institution Vice President Name Role Phone Unavailable Primary Care Provider Unavailabl e Encounter Details Date Type Department Care Team (Late st Contact Info) Description 04/23/2005 6:46 EDT - 04/23/2005 11:59 EDT Hospital Encounter [facility] - Other [address] [place] [address] India Mello MD [address] [place] [address] Discharge Disposition: Auto Discharge Social History Tobacco [...] Procedure Name Priority Date/Time Associated Diagnosis Comments RAD US BREAST UNILATERAL OR BILATERAL Routine 04/23/2005 8:30 EDT documented in this encounter Results * RAD US BREAST UNILATERAL OR BILATERAL (04/23/2005 8:30 EDT) Anatomical Region Laterality Modality Other 04/23/2005 8:30 EDT Impressions 06/28/2009 11:17 EDT IMPRESSION: BILATERAL BREASTS - CATEGORY 2 Ultrasound demonstrates simple cysts. Benign, no evidence of malignancy. Normal interval follow-up is recommended in 12 months. OVERALL ASSESSMENT - BENIGN END OF IMPRESSION Narrative 06/28/2009 11:17 EDT CHARLES SCREENING US ? AGE SPECIFIC BR SCREENING, PT REFUSES MAMMO * PT WILL PAY IF INS. DOES NOT This is the patient's baseline exam. Bilateral Breast Findings (ultrasound (diagnostic) projection): Ultrasound demonstrates a few small (less than 5 mm) scattered simple cysts in both breasts. There are no suspicious solid lesions. Procedure Note Shailesh Patrick MD - 06/28/2009 CHARLES SCREENING US AGE SPECIFIC BR SCREENING, PT REFUSES MAMMO * PT WILL PAY IF INS. DOES NOT This is the patient's baseline exam. Bilateral Breast Findings (ultrasound (diagnostic) projection): Ultrasound demonstrates a few small (less than 5 mm) scattered simple cysts in both breasts. There are no suspicious solid lesions. IMPRESSION IMPRESSION: BILATERAL BREASTS - CATEGORY 2 Ultrasound demonstrates simple cysts. Benign, no evidence of malignancy. Normal interval follow-up is recommended in 12 months. OVERALL ASSESSMENT - BENIGN END OF IMPRESSION us India Mello MD IMG US ORDERABLES Final Resu lt documented in this encounter Visit Diagnoses Not on filedocumented in this encounter
--- OUTSIDE RECORDS SUMMARY | 2024-10-13 11:40 | XMS_ITS | Encounter Summary ---
Author Organization [facility] Address [address] [place] [address] Care Team Providers Care Entry Level Finance Name Role Phone Unavailable Primary Care Provider Unavailabl e Encounter Details Date Type Department Care Team (Late st Contact Info) Description 08/16/2002 13:[address] [facility] - Other [address] [place] [address] Shirley Mello MD [address] [place] [address] Unknown, Provider, Discharge Disposition: Auto Discharge Social History Tobacco [...] Priority Date/Time Associated Diagnosis Comments CYTOPATHOLOGY Routine 08/16/2002 0:00 EDT documented in this encounter Results * CYTOPATHOLOGY (08/16/2002 0:00 EDT) Pathology Report: CYTOPATHOLOGY REPORT Reports generated via electronic interface contain original data; however they are lacking the format of the original report. Caution should be taken when reading/interpreti ng unformatted reports. Name: ? JESSICA ALVAREZ ? Accession #: ? [id number] : ? 1960 (Age: 42) ??F ?Collect Date: ? 08/16/2002 Location: ? [facility] ? Receive Date: ? 08/17/2002 Provider: ?SHIRLEY MELLO MD Copy to: ? Specimen/Source: ?ThinPrep Pap Test, Endocervix Last Menstrual Period: ? 07/29/02 ? SPECIMEN ADEQUACY ? Satisfactory for Evaluation - transformation zone component present GENERAL CATEGORIZATION ? Negative for Intraepithelial Lesion or Malignancy ? Document reviewed and electronically signed by: ? MINH Reyna(ASCP) ? Report Date: ??08/22/2002 07:04 End of Report [facility] 08/16/2002 08/17/2002 us Shirley Mello MD PATHOLOGY ORDERABLES Final R esult [facility] [address] [place] [address] documented in this encounter Visit Diagnoses Not on filedocumented in this encounter
--- OUTSIDE RECORDS SUMMARY | 2024-10-13 11:40 | XMS_ITS | Encounter Summary ---
Author Organization [facility] Address [address] [place] [address] Care Team Providers Care Military Equipment Specialist Name Role Phone Karli Almazan MD Primary Care Provid er Encounter Details Date Type Department Care Team (Late st Contact Info) Description 12/25/2004 Results Only [facility] - Maple conversion [address] [place] [address] Shirley Mello MD [address] [place] [address] Social History Tobacco Use Types Packs/Day Years [...] Procedure Name Priority Date/Time Associated Diagnosis Comments TSH Routine 12/25/2004 14:23 EST T4 FREE Routine 12/25/2004 14:23 EST IRON Routine 12/25/2004 14:23 EST COMPREHENSIVE METABOLIC PANEL (CMP) Routine 12/25/2004 14:23 EST CYTOPATHOLOGY Routine 12/25/2004 0:00 EST documented in this encounter Results * TSH (12/25/2004 14:23 EST) TSH 0.62 0.35 - 5.50 uIU/ml [facility] 12/25/2004 14:2 3 EST 12/25/2004 14:24 EST Shirley Mello MD CHEMISTRY & BLOOD GAS ORDERA BLES Final Result Performing Organization Address [facility] de Phone Number [facility] [address] [place] [address] * IRON (12/25/2004 14:23 EST) Pathologist [facility] 109 60 - 180 ug/dl [facility] 12/25/2004 14:2 3 EST 12/25/2004 14:24 EST Shirley Mello MD CHEMISTRY & BLOOD GAS ORDERA BLES Final Result Performing Organization Address [facility] de Phone Number [facility] [address] [place] [address] * T4 FREE (12/25/2004 14:23 EST) Free T4 1.0 0.8 - 1.8 ng/dl [facility] 12/25/2004 14:2 3 EST 12/25/2004 14:24 EST Shirley Mello MD CHEMISTRY & BLOOD GAS ORDERA BLES Final Result Performing Organization Address [facility] de Phone Number [facility] [address] [place] [address] * COMPREHENSIVE METABOLIC PANEL (12/25/2004 14:23 EST) Potassium 4.3 3.5 - 5.0 mEq/L [facility] Sodium 142 136 - 145 mEq/L [facility] Chloride 107 96 - 110 mEq/L [facility] CO2 27 24 - 32 mEq/L [facility] Total Alkaline Phosphatase 71 38 - 126 U/L [facility] Bilirubin, Total <0.5 0.2 - 1.3 mg/dl [facility] AST 16 15 - 46 U/L [facility] ALT 11 9 - 52 U/L [facility] Albumin 4.2 3.4 - 4.9 g/dl [facility] Total Protein 7.3 6.5 - 8.0 g/dl [facility] Creatinine 0.7 0.7 - 1.5 mg/dl [facility] BUN 14 10 - 26 mg/dl [facility] Calcium 8.9 8.5 - 10.5 mg/dl [facility] Calculated Calcium 9.1 8.5 - 10.5 mg/dl [facility] Glucose, Serum 95 70 - 110 mg/dl [facility] Fasting? No [facility] Albumin/Globulin Ratio 1.4 [facility] 12/25/2004 14:2 3 EST 12/25/2004 14:24 EST Shirley Mello MD CHEMISTRY & BLOOD GAS ORDERA BLES Final Result [facility] [address] [place] [address] * CYTOPATHOLOGY (12/25/2004 0:00 EST) Pathology Report: CYTOPATHOLOGY REPORT Reports generated via electronic interface contain original data; however they are lacking the format of the original report. Caution should be taken when reading/interpreti ng unformatted reports. Name: ? JESSICA ALVAREZ ? Accession #: ? [id number] : ? 1960 (Age: 44) ??F ?Collect Date: ? 12/25/2004 Location: ? [facility] ? Receive Date: ? 12/26/2004 Provider: ?SHIRLEY MELLO MD Copy to: ? Specimen/Source: ?ThinPrep Pap Test, Cervix/Endocervix Last Menstrual Period: ? 12/07/04 ? SPECIMEN ADEQUACY ? Satisfactory for Evaluation - transformation zone component present GENERAL CATEGORIZATION ? Negative for Intraepithelial Lesion or Malignancy ? Document reviewed and electronically signed by: ? MINH Conway(ASCP) ? Report Date: ??12/30/2004 14:31 End of Report [facility] 12/25/2004 12/26/2004 us Shirley Mello MD PATHOLOGY ORDERABLES Final R esult Performing Organization Address City/State/[place] Co de Phone Number [facility] [address] [place] [address] documented in this encounter Visit Diagnoses Not on filedocumented in this encounter Care Teams Military Equipment Specialist Relationship Specialty Start Date End Date Karli Almazan MD [address] [place] [address] PCP - General 01/29/10 02/14/13 documented as of this encounter
[2024-10-13 15:21] LABS: ALT 14 U/L (14-59); AST 20 U/L (15-37); Alkaline Phosphatase 75 U/L (46-116); Anion Gap 9.1 mmol/L (3-11); BUN 9 mg/dL (7-18); Bilirubin, Total 0.48 mg/dL (0.2-1.0); CO2 25.9 mmol/L (21.0-32.0); CREATININE 0.8 mg/dL (0.55-1.02); Calcium 9.2 mg/dL (8.5-10.1); Calculated LDL 186 mg/dL (<100); Chloride 107 mmol/L (98-107); Cholesterol 308 mg/dL (<200); Estimated GFR 81.72 (mL/min/1.73m2); Glucose 102 mg/dL (74-106); HDL Cholesterol 81 mg/dL (40-60); Potassium 4.3 mmol/L (3.5-5.1); Sodium 142 mmol/L (136-145); Total Protein 7.5 g/dL (6.4-8.2); Triglyceride 209 mg/dL (<150); Vitamin B12 690 pg/mL (193-986); Vitamin D 25 Total 54.4 ng/mL (30-100)
== END 2024-10-13 11:37 | disposition home or self-care (01) ==
LOC: NCHCN 11:36
PROVIDERS: Visit Provider Family Medicine
DX: Z11.51 Encounter for screening for human papillomavirus (HPV) (principal); Z01.419 Encounter for gynecological examination (general) (routine) without abnormal findings; Z00.00 Encounter for general adult medical examination without abnormal findings; E55.9 Vitamin D deficiency, unspecified; E53.8 Deficiency of other specified B group vitamins
CPT/HCPCS: 80053; 80061; 82306; 88142; 82607; 87624

== ENCOUNTER 2025-10-17 15:40 | Outpatient (REF) | payer OTHER, MEDICARE, SELFPAY ==
[2025-10-17 21:09] LABS: Vitamin D 25 Total 37 ng/mL (30-100)
[2025-10-17 21:10] LABS: ALT 12 U/L (10-49); AST 19 U/L (<34); Albumin 4.5 g/dL (3.2-5.0); Alkaline Phosphatase 77 U/L (46-116); Anion Gap 7.8 mmol/L (3-11); BUN 10 mg/dL (9-23); Bilirubin, Total 0.5 mg/dL (0.2-1.2); CO2 25.2 mmol/L (20.0-31.0); Calcium 9.1 mg/dL (8.3-10.6); Chloride 109 mmol/L (98-107); Cholesterol 274 mg/dL (<200); Glucose 103 mg/dL (74-106); HDL Cholesterol 72 mg/dL (>40); Potassium 4.3 mmol/L (3.5-5.1); Sodium 142 mmol/L (136-145); TSH 1.58 uIU/mL (0.55-4.78); Total Protein 7.4 g/dL (5.7-8.2)
[2025-10-17 21:37] LABS: Vitamin B12 904 pg/mL (211-911)
== END 2025-10-17 15:41 | disposition home or self-care (01) ==
LOC: NCHCN 15:40
PROVIDERS: Visit Provider Family Medicine
DX: E78.5 Hyperlipidemia, unspecified (principal); E55.9 Vitamin D deficiency, unspecified; E53.8 Deficiency of other specified B group vitamins; Z12.11 Encounter for screening for malignant neoplasm of colon
CPT/HCPCS: 80053; 80061; 82306; 82607; 84439; 84443